=== PATIENT | male | born 1960 | race Caucasian/White ===

== ENCOUNTER 2017-04-04 14:27 | Emergency (ER) | payer BC, OTHER ==
[~2017-04-04] VITALS: Ht 182.9 cm; Wt 87.0 kg
[2017-04-04 14:41] VITALS: TEMP 36.6; Ht 182.9 cm; Wt 87.0 kg
[2017-04-04] MEDS ORDERED: MULT-506 PO (14:50)
[2017-04-04] MEDS ORDERED: IBUP-1050 PO (14:50)
[2017-04-04] MEDS ORDERED: IBUPROFEN 600 MG TAB PO STA (14:58)
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
[2017-04-04] MEDS ORDERED: OXYCODONE HCL IR 5 MG TAB (IMMEDIATE RELEASE) PO STA (15:56)
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
[2017-04-04 16:09] VITALS: BP 133/89; PULSE 63; O2SAT 95
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
[2017-04-04] MEDS ORDERED: DIPHTHERIA/TETANUS/PERTUSSIS 0.5 ML SYR/VIAL IM. ONE (16:45)
[2017-04-04] MEDS ORDERED: OXYC1TAB3 PO (16:47)
== END 2017-04-04 17:01 | disposition home or self-care (01) ==
LOC: C.EDB 14:28 → C.EDD 17:01
DX: S43.102A Unspecified dislocation of left acromioclavicular joint, initial encounter (principal); M79.605 Pain in left leg; V18.0XXA Pedal cycle driver injured in noncollision transport accident in nontraffic accident, initial encounter; Z23 Encounter for immunization

== ENCOUNTER 2020-11-01 19:40 | Inpatient (IN) ==
--- NOTE | 2020-11-01 19:53 | Emergency Department Note ---
Impression & Plan Neutropenic fever, Sepsis, Pancytopenia ED Provider Note NAME: RAFFY SCHUSTER AGE: 60 SEX: M : 1960 ARRIVES VIA: Walk-In INFORMANT: patient, ED PROVIDER(S): Mario Chu MD Chief Complaint: Fever HPI: Patient does present with concern for low-grade fever. The patient does have a known diagnosis of lymphoma and does receive chemotherapy at the [facility]. Patient did have a recent change in medications and has been on IV chemotherapy since August. The patient is on chronic a ntibiotics as well. Patient did have a CBC completed recently which showed a low hemoglobin of 6.8 and is scheduled for transfusion tomorrow. The patient states that he has had some nausea since he last got his chemotherapy last Thursday at [facility]. The nausea began Thursday and became more persistent and strong with some associated vomiting. The patient is had decreased appetite. The patient did noticed a low-grade fever today. The patient states that he did have some sort of unresponsive and seizure-like episode on Thursday [facility] was not noted to have anything of great concern based on a CT head and MRI of the brain per the patient. Patient denies any chest pains or shortness of breath. He does have nausea but no abdominal pain. Patient is had a recent bowel movement no dysuria or hematuria. The patient has had some postnasal drip type symptoms. Patient states he has been taking his medications with exception of maybe some evening meds. Patient also related he has a small sore near the perineum as well as on the buttock. He has been following with this and treating it with antibiotic ointment. ROS: See HPI for pertinent positives and negatives. A total of 10 systems were reviewed and otherwise negative. Past medical history: See below Surgical history: See below Social history: See below Physical Exam: GENERAL: Tired, fatigued, and pale in appearance. Wearing a mask, glasses at a hat. EYE EXAM: Normal conjunctiva. PERRL, no anisocoria and EOM's grossly intact w/o pain. NECK: Supple, no nuchal rigidity, no adenopathy, non-tender. No signs of meningismus. LUNGS: Clear to auscultation. Normal chest wall mechanics. HEART: NSR, no MRG. ABDOMEN: Abdomen soft, non-tender, normo-active bowel sounds, no masses, no rebound or guarding. BACK: No CVA TTP. SKIN: No rashes and no bruising. Stage II skin breakdown over the perineum as well as the sacrum without any surrounding erythema fluctuance drainage or swelling. No evidence of Pam's or deep tissue infection. UPPER EXTREMITIES: Upper extremities are grossly normal. LOWER EXTREMITIES: Grossly normal, no edema. Negative Homans' sign bilaterally. NEURO EXAM: A&O x3, cranial nerves II-XII grossly intact, normal speech, moves all 4 extremities on command w/o issue. Differential diagnoses: Sepsis, UTI, pneumonia, metabolic, electrolyte abnor malities, cardiac sources, intracerebral event, toxicologic, neurologic, as well as other pathologies. Course: Patient was seen and evaluated the bedside. Full history physical exam was performed. EKG: Indication: Fever Normal sinus rhythm, rate of 77, normal intervals, normal axis. Imaging Studies: Radiology results as stated below per my review in the radiologist's interpretation: XR chest 1V portable CLINICAL HISTORY: Sepsis. COMPARISON STUDY: Chest radiograph August 07, 2020. FINDINGS: Lung volumes are normal. Lungs are clear. There is no pneumothorax or pleural effusion. Mild cardiomegaly is unchanged. Mediastinal contours are normal. There is no evidence for pulmonary edema. Right sided [id number] is in place. IMPRESSION: No acute cardiopulmonary findings. ACT 112: Negative or not required by law. Electronically signed by: Juan Alberto Alfaro M.D. 11/01/2020 8:55 PM Dictated: 11/01/202053 Transcribed: 11/01/202053 CT head: Evidence of right frontal craniotomy. Encephalomalacia of the underlying anterior right frontal lobe. No definite acute ICH. 3 x 1.4 midline hyperdense extra-axial mass anterior to the frontal lobes. Additional 0.9 x 1.7 hyperdense extra-axial mass along the anterior anterior hemispheric fissure near the vertex. These may be meningiomas. Mild periventricular white matter chronic microvascular ischemic changes. No acute calvarial fracture. Orbits, sinuses, and mastoids are unremarkable Cardiac monitoring: An order was placed for continuous cardiac monitoring. The monitor shows a rate of 93 with sinus rhythm. MDM: Patient does present with concern for increasing weakness nausea recent chemotherapy and low-grade temperature. Patient did have blood work completed along with IV cefepime given the concern for his ongoing chemotherapy with a MRSA swab. Flu and Covid obtained as well. The patient was ordered IV fluids antiemetics. The patient's flu and Covid negative. The patient did have significant neutropenia and anemia and thrombocytopenia. I did speak to the on-call research tech oncologist with Dr. Johan Jimenez. He did recommend any platelet transfusion. The patient was consented and blood and platelets ordered. The patient did have improvement in his blood pressure. The patient does have some mild prerenal azotemia. Troponin is not detectable. No spontaneous bleeding and no confusion at this time. Urinalysis negative. MRSA screen negative. Did speak the on-call hospitalist Dr. Islas the patient was admitted to medicine service. I did update the with the patient's permission. CT of the head does not show any acute ICH. Critical Care: I have personally spent 85 minutes of critical care time in direct management of this patient. This includes bedside care, interpretation of diagnostic studies, and testing, discussion with consultants, patient, and family members, and other require inpatient management activities. This 85 minutes is [facility] excess [facility]. Past Med/Surg History Medical History (Updated 11/01/20 @ 23:59 by Mario Chu MD) Brain cancer Leukemia Social History Smoking Status: Never smoker Tobacco Type: Cigarettes Feels Safe at Home: Yes Allergies Allergies Allergy/AdvReac Type Severity Reaction Status Date / Time No Known Allergies Allergy Verified 11/01/20 21:25 Home Meds Home Medications Medication Instructions Recorded Confirmed acyclovir 800 mg PO BID 11/01/20 11/01/20 atorvastatin 20 mg PO QPM 11/01/20 11/01/20 baclofen 10 mg PO DIRECTED PRN 11/01/20 11/01/20 cyclobenzaprine 5 mg PO DIRECTED PRN 11/01/20 11/01/20 dextromethorphan-guaifenesin 2 tab PO Q12H 11/01/20 11/01/20 [Mucinex DM] diphenhydramine HCl 25 mg PO HS 11/01/20 11/01/20 filgrastim-sndz [Zarxio] 480 mcg SUBCUT DAILY@1900 11/01/20 11/01/20 fluconazole 400 mg PO QAM 11/01/20 11/01/20 folic acid 1 mg PO QAM 11/01/20 11/01/20 levetiracetam 500 mg PO BID 11/01/20 11/01/20 levofloxacin 500 mg PO QAM 11/01/20 11/01/20 lidocaine HCl [Lidocaine Viscous] See Rx Instructions .ROUTE .COMPLEX 11/01/20 11/01/20 loratadine [Claritin] 10 mg PO DIRECTED 11/01/20 11/01/20 lorazepam 0.5 mg PO Q4H PRN 11/01/20 11/01/20 melatonin 10 mg PO HS 11/01/20 11/01/20 ondansetron 4 mg PO DIRECTED PRN 11/01/20 11/01/20 oxycodone 5 mg PO Q6H PRN 11/01/20 11/01/20 polyethylene glycol 3350 17 g PO DAILY PRN 11/01/20 11/01/20 prochlorperazine maleate 10 mg PO DIRECTED PRN 11/01/20 11/01/20 pyridoxine (vitamin B6) [Vitamin 100 mg PO QAM 11/01/20 11/01/20 B-6] sennosides [senna] 8.6 mg PO DIRECTED PRN 11/01/20 11/01/20 sulfamethoxazole-trimethoprim 1 tab PO 3XWK 11/01/20 11/01/20 Results & Data (ED) Vital Signs Vital Signs - 24 hr 11/01/20 19:42 11/01/20 21:29 11/01/20 21:30 Temperature 37.7 C H Temperature Source Oral Pulse Rate 93 H 76 75 Pulse Rate [Finger] Pulse Rate from SpO2 Sensor 75 Respiratory Rate 20 21 20 Respiratory Effort / Characteristics Non-Labored Spontaneous Respiratory Depth Normal Respiratory Pattern Regular Blood Pressure 95/65 L 99/59 L 114/61 Blood Pressure [Right Radial Artery] Blood Pressure Mean 75 72 78 Blood Pressure Mean [Right Radial Artery] Pulse Oximetry 99 98 98 Oxygen Delivery Method Room Air Room Air Room Air Sepsis Recent Fever Within 48 Hours No Sepsis New/Unexplained Change in Mental Status N/A Sepsis Action Taken by Nursing No Action Required 11/01/20 22:00 11/01/20 22:01 11/01/20 22:30 Temperature Temperature Source Pulse Rate 75 72 77 Pulse Rate [Finger] Pulse Rate from SpO2 Sensor 75 72 78 Respiratory Rate 18 18 19 Respiratory Effort / Characteristics Respiratory Depth Respiratory Pattern Blood Pressure 107/69 122/67 Blood Pressure [Right Radial Artery] Blood Pressure Mean 81 85 Blood Pressure Mean [Right Radial Artery] Pulse Oximetry 98 98 99 Oxygen Delivery Method Sepsis Recent Fever Within 48 Hours Sepsis New/Unexplained Change in Mental Status Sepsis Action Taken by Nursing 11/01/20 22:31 11/01/20 23:38 11/01/20 23:55 Temperature Temperature Source Pulse Rate 80 Pulse Rate [Finger] 74 Pulse Rate from SpO2 Sensor 79 Respiratory Rate 19 Respiratory Effort / Characteristics Respiratory Depth Respiratory Pattern Blood Pressure Blood Pressure [Right Radial Artery] 109/60 Blood Pressure Mean Blood Pressure Mean [Right Radial Artery] 76 Pulse Oximetry 99 99 99 Oxygen Delivery Method Room Air Room Air Sepsis Recent Fever Within 48 Hours Sepsis New/Unexplained Change in Mental Status Sepsis Action Taken by Nursing 11/02/20 00:00 Temperature Temperature Source Pulse Rate Pulse Rate [Finger] Pulse Rate from SpO2 Sensor Respiratory Rate Respiratory Effort / Characteristics Respiratory Depth Respiratory Pattern Blood Pressure Blood Pressure [Right Radial Artery] Blood Pressure Mean Blood Pressure Mean [Right Radial Artery] Pulse Oximetry 98 Oxygen Delivery Method Room Air Sepsis Recent Fever Within 48 Hours Sepsis New/Unexplained Change in Mental Status Sepsis Action Taken by Assisted Medications Current Medication List: was personally reviewed by me Laboratory Data Attestation: I reviewed the patient's lab results. Result diagrams: 11/01/20 20:50 11/01/20 20:50 Lab Results 11/01/20 11/01/20 11/01/20 Range/Units 20:00 20:50 20:50 WBC (4.8-10.8) K/uL RBC (4.7-6.1) M/uL Hgb (14.0-18.0) g/dL Hct (42-52) % MCV (80-100) fL MCH (25-34) pg MCHC (32-36) g/dL RDW Std Deviation (36.4-46.3) fL RDW Coeff of Jai (11.5-14.5) % Plt Count (130-400) K/uL MPV (7.4-10.4) fL Immature Gran % (Auto) Neut % (Auto) Lymph % (Auto) [place] % (Auto) Eos % (Auto) Baso % (Auto) Neut # (Auto) Lymph # (Auto) [place] # (Auto) Eos # (Auto) Baso # (Auto) Immature Gran # (Auto) Neutrophils % (Manual) Band Neutrophils % Lymphocytes % (Manual) Prolymphocyte % Reactive Lymphs % (Man) Monocytes % (Manual) Eosinophils % (Manual) Basophils % (Manual) Metamyelocytes % (Man) Myelocytes % (Man) Promyelocytes % (Man) Blast Cells % (Manual) Plasma Cell % (Manual) Other Cells % Nucleated RBC % Neutrophils # (Manual) Band Neutrophils # Total Absolute Neuts Lymphocytes # (Manual) Prolymphocyte # Reactive Lymphs # Total Abs Lymphocytes Monocytes # (Manual) Eosinophils # (Manual) Basophils # (Manual) Metamyelocytes # (Man) Myelocytes # (Manual) Promyelocytes # (Man) Blast Cells # (Man) Plasma Cell # (Manual) Other Cells # Nucleated RBCs # (Man) Hypersegmented Neuts Hyposegmented Neuts Hypogranular Neuts Large Granular Lymphs # Lrg Granular Lymphs Hairy Cells Smudge Cells Toxic Granulation Toxic Vacuolation Dohle Bodies Miranda Rods Platelet Estimate (Normal) Hypogranular Platelets Clumped Platelets Giant Platelets Platelet Satelliting RBC Morphology Polychromasia Hypochromasia Poikilocytosis Basophilic Stippling Anisocytosis Microcytosis Macrocytosis Spherocytes Pappenheimer Bodies Sickle Cells Target Cells Tear Drop Cells Ovalocytes Stomatocytes Neves-Pomeroy Bodies Echinocytes Acanthocytes (Spur) Rouleaux RBC Agglutinates Schistocytes RBC Morph Comment Sezary Cell PT (9.0-12.0) Seconds INR (0.9-1.1) APTT (21.0-31.0) Seconds PTT Ratio Sodium 133 L (136-145) mmol/L Potassium 4.1 (3.5-5.1) mmol/L Chloride 102 (98-107) mmol/L Carbon Dioxide 25 (21-32) mmol/L Anion Gap 6.0 (3-11) BUN 23 H (7-18) mg/dl Creatinine 0.99 (0.6-1.4) mg/dl Est Cr Clr Drug Dosing 89.3 ml/min Est GFR ( Amer) 96.9 Est GFR (Non-Af Amer) 83.6 BUN/Creatinine Ratio 23.1 H (10-20) Glucose 120 H (70-99) mg/dl Lactate 1.3 (0.4-2.0) mmol/L Calcium 8.9 (8.5-10.1) mg/dl Magnesium 1.9 (1.8-2.4) mg/dl Total Bilirubin 1.0 (0.2-1) mg/dl AST 6 L (15-37) U/L ALT 27 (12-78) U/L Alkaline Phosphatase 91 (45-117) U/L Troponin I < 0.015 (0-0.045) ng/ml Total Protein 6.3 L (6.4-8.2) gm/dl Albumin 3.3 L (3.4-5.0) gm/dl Globulin 3.0 (2.5-4.0) gm/dl Albumin/Globulin Ratio 1.1 (0.9-2) Procalcitonin 0.10 (0-0.5) ng/ml Urine Color Urine Appearance (Clear) Urine pH (4.5-7.5) Ur Specific Slaughter (1.000-1.030) Urine Protein (Negative) Urine Glucose (UA) (Negative) Urine Ketones (Negative) Urine Blood (Negative) Urine Nitrite (Negative) Urine Bilirubin (Negative) Urine Urobilinogen (Negative) Ur Leukocyte Esterase (Negative) Nasal Screen MRSA (PCR) (Negative) COVID-19 Eval Order SARS-CoV-2 (PCR) (Negative) Influenza Type A (PCR) (Neg) Influenza Type B (PCR) (Neg) RSV (RT-PCR) (Neg) Blood Type Antibody Screen Crossmatch 11/01/20 11/01/20 11/01/20 Range/Units 20:50 20:50 21:34 WBC 0.04 L* (4.8-10.8) K/uL RBC 1.90 L (4.7-6.1) M/uL Hgb 5.9 L* (14.0-18.0) g/dL Hct 16.3 L* (42-52) % MCV 85.8 (80-100) fL MCH 31.1 (25-34) pg MCHC 36.2 H (32-36) g/dL RDW Std Deviation 41.3 (36.4-46.3) fL RDW Coeff of Jai 13.3 (11.5-14.5) % Plt Count 16 L* (130-400) K/uL MPV 11.1 H (7.4-10.4) fL Immature Gran % (Auto) Cancelled Neut % (Auto) Cancelled Lymph % (Auto) Cancelled [place] % (Auto) Cancelled Eos % (Auto) Cancelled Baso % (Auto) Cancelled Neut # (Auto) Cancelled Lymph # (Auto) Cancelled [place] # (Auto) Cancelled Eos # (Auto) Cancelled Baso # (Auto) Cancelled Immature Gran # (Auto) Cancelled Neutrophils % (Manual) Cancelled Band Neutrophils % Cancelled Lymphocytes % (Manual) Cancelled Prolymphocyte % Cancelled Reactive Lymphs % (Man) Cancelled Monocytes % (Manual) Cancelled Eosinophils % (Manual) Cancelled Basophils % (Manual) Cancelled Metamyelocytes % (Man) Cancelled Myelocytes % (Man) Cancelled Promyelocytes % (Man) Cancelled Blast Cells % (Manual) Cancelled Plasma Cell % (Manual) Cancelled Other Cells % Cancelled Nucleated RBC % Cancelled Neutrophils # (Manual) Cancelled Band Neutrophils # Cancelled Total Absolute Neuts Cancelled Lymphocytes # (Manual) Cancelled Prolymphocyte # Cancelled Reactive Lymphs # Cancelled Total Abs Lymphocytes Cancelled Monocytes # (Manual) Cancelled Eosinophils # (Manual) Cancelled Basophils # (Manual) Cancelled Metamyelocytes # (Man) Cancelled Myelocytes # (Manual) Cancelled Promyelocytes # (Man) Cancelled Blast Cells # (Man) Cancelled Plasma Cell # (Manual) Cancelled Other Cells # Cancelled Nucleated RBCs # (Man) Cancelled Hypersegmented Neuts Cancelled Hyposegmented Neuts Cancelled Hypogranular Neuts Cancelled Large Granular Lymphs Cancelled # Lrg Granular Lymphs Cancelled Hairy Cells Cancelled Smudge Cells Cancelled Toxic Granulation Cancelled Toxic Vacuolation Cancelled Dohle Bodies Cancelled Miranda Rods Cancelled Platelet Estimate SIGNIFIC DECREASED (Normal) Hypogranular Platelets Cancelled Clumped Platelets Cancelled Giant Platelets Cancelled Platelet Satelliting Cancelled RBC Morphology Cancelled Polychromasia Cancelled Hypochromasia Cancelled Poikilocytosis Cancelled Basophilic Stippling Cancelled Anisocytosis Cancelled Microcytosis Cancelled Macrocytosis Cancelled Spherocytes Cancelled Pappenheimer Bodies Cancelled Sickle Cells Cancelled Target Cells Cancelled Tear Drop Cells Cancelled Ovalocytes Cancelled Stomatocytes Cancelled Neves-Pomeroy Bodies Cancelled Echinocytes Cancelled Acanthocytes (Spur) Cancelled Rouleaux Cancelled RBC Agglutinates Cancelled Schistocytes Cancelled RBC Morph Comment Cancelled Sezary Cell Cancelled PT 10.9 (9.0-12.0) Seconds INR 1.1 (0.9-1.1) APTT 34.6 H (21.0-31.0) Seconds PTT Ratio 1.3 Sodium (136-145) mmol/L Potassium (3.5-5.1) mmol/L Chloride (98-107) mmol/L Carbon Dioxide (21-32) mmol/L Anion Gap (3-11) BUN (7-18) mg/dl Creatinine (0.6-1.4) mg/dl Est Cr Clr Drug Dosing ml/min Est GFR ( Amer) Est GFR (Non-Af Amer) BUN/Creatinine Ratio (10-20) Glucose (70-99) mg/dl Lactate (0.4-2.0) mmol/L Calcium (8.5-10.1) mg/dl Magnesium (1.8-2.4) mg/dl Total Bilirubin (0.2-1) mg/dl AST (15-37) U/L ALT (12-78) U/L Alkaline Phosphatase (45-117) U/L Troponin I (0-0.045) ng/ml Total Protein (6.4-8.2) gm/dl Albumin (3.4-5.0) gm/dl Globulin (2.5-4.0) gm/dl Albumin/Globulin Ratio (0.9-2) Procalcitonin (0-0.5) ng/ml Urine Color Urine Appearance (Clear) Urine pH (4.5-7.5) Ur Specific Slaughter (1.000-1.030) Urine Protein (Negative) Urine Glucose (UA) (Negative) Urine Ketones (Negative) Urine Blood (Negative) Urine Nitrite (Negative) Urine Bilirubin (Negative) Urine Urobilinogen (Negative) Ur Leukocyte Esterase (Negative) Nasal Screen MRSA (PCR) (Negative) COVID-19 Eval Order CovFluRsv at [facility] SARS-CoV-2 (PCR) (Negative) Influenza Type A (PCR) (Neg) Influenza Type B (PCR) (Neg) RSV (RT-PCR) (Neg) Blood Type Antibody Screen Crossmatch 11/01/20 11/01/20 11/01/20 Range/Units 21:34 21:34 22:48 WBC (4.8-10.8) K/uL RBC (4.7-6.1) M/uL Hgb (14.0-18.0) g/dL Hct (42-52) % MCV (80-100) fL MCH (25-34) pg MCHC (32-36) g/dL RDW Std Deviation (36.4-46.3) fL RDW Coeff of Jai (11.5-14.5) % Plt Count (130-400) K/uL MPV (7.4-10.4) fL Immature Gran % (Auto) Neut % (Auto) Lymph % (Auto) [place] % (Auto) Eos % (Auto) Baso % (Auto) Neut # (Auto) Lymph # (Auto) [place] # (Auto) Eos # (Auto) Baso # (Auto) Immature Gran # (Auto) Neutrophils % (Manual) Band Neutrophils % Lymphocytes % (Manual) Prolymphocyte % Reactive Lymphs % (Man) Monocytes % (Manual) Eosinophils % (Manual) Basophils % (Manual) Metamyelocytes % (Man) Myelocytes % (Man) Promyelocytes % (Man) Blast Cells % (Manual) Plasma Cell % (Manual) Other Cells % Nucleated RBC % Neutrophils # (Manual) Band Neutrophils # Total Absolute Neuts Lymphocytes # (Manual) Prolymphocyte # Reactive Lymphs # Total Abs Lymphocytes Monocytes # (Manual) Eosinophils # (Manual) Basophils # (Manual) Metamyelocytes # (Man) Myelocytes # (Manual) Promyelocytes # (Man) Blast Cells # (Man) Plasma Cell # (Manual) Other Cells # Nucleated RBCs # (Man) Hypersegmented Neuts Hyposegmented Neuts Hypogranular Neuts Large Granular Lymphs # Lrg Granular Lymphs Hairy Cells Smudge Cells Toxic Granulation Toxic Vacuolation Dohle Bodies Miranda Rods Platelet Estimate (Normal) Hypogranular Platelets Clumped Platelets Giant Platelets Platelet Satelliting RBC Morphology Polychromasia Hypochromasia Poikilocytosis Basophilic Stippling Anisocytosis Microcytosis Macrocytosis Spherocytes Pappenheimer Bodies Sickle Cells Target Cells Tear Drop Cells Ovalocytes Stomatocytes Neves-Pomeroy Bodies Echinocytes Acanthocytes (Spur) Rouleaux RBC Agglutinates Schistocytes RBC Morph Comment Sezary Cell PT (9.0-12.0) Seconds INR (0.9-1.1) APTT (21.0-31.0) Seconds PTT Ratio Sodium (136-145) mmol/L Potassium (3.5-5.1) mmol/L Chloride (98-107) mmol/L Carbon Dioxide (21-32) mmol/L Anion Gap (3-11) BUN (7-18) mg/dl Creatinine (0.6-1.4) mg/dl Est Cr Clr Drug Dosing ml/min Est GFR ( Amer) Est GFR (Non-Af Amer) BUN/Creatinine Ratio (10-20) Glucose (70-99) mg/dl Lactate (0.4-2.0) mmol/L Calcium (8.5-10.1) mg/dl Magnesium (1.8-2.4) mg/dl Total Bilirubin (0.2-1) mg/dl AST (15-37) U/L ALT (12-78) U/L Alkaline Phosphatase (45-117) U/L Troponin I (0-0.045) ng/ml Total Protein (6.4-8.2) gm/dl Albumin (3.4-5.0) gm/dl Globulin (2.5-4.0) gm/dl Albumin/Globulin Ratio (0.9-2) Procalcitonin (0-0.5) ng/ml Urine Color Urine Appearance (Clear) Urine pH (4.5-7.5) Ur Specific [place]aughter (1.000-1.030) Urine Protein (Negative) Urine Glucose (UA) (Negative) Urine Ketones (Negative) Urine Blood (Negative) Urine Nitrite (Negative) Urine Bilirubin (Negative) Urine Urobilinogen (Negative) Ur Leukocyte Esterase (Negative) Nasal Screen MRSA (PCR) Negative (Negative) COVID-19 Eval Order SARS-CoV-2 (PCR) NEGATIVE (Negative) Influenza Type A (PCR) Negative (Neg) Influenza Type B (PCR) Negative (Neg) RSV (RT-PCR) Negative (Neg) Blood Type A Positive Antibody Screen NEGATIVE Crossmatch See Detail 11/01/20 Range/Units 23:00 WBC (4.8-10.8) K/uL RBC (4.7-6.1) M/uL Hgb (14.0-18.0) g/dL Hct (42-52) % MCV (80-100) fL MCH (25-34) pg MCHC (32-36) g/dL RDW Std Deviation (36.4-46.3) fL RDW Coeff of Jai (11.5-14.5) % Plt Count (130-400) K/uL MPV (7.4-10.4) fL Immature Gran % (Auto) Neut % (Auto) Lymph % (Auto) [place] % (Auto) Eos % (Auto) Baso % (Auto) Neut # (Auto) Lymph # (Auto) [place] # (Auto) Eos # (Auto) Baso # (Auto) Immature Gran # (Auto) Neutrophils % (Manual) Band Neutrophils % Lymphocytes % (Manual) Prolymphocyte % Reactive Lymphs % (Man) Monocytes % (Manual) Eosinophils % (Manual) Basophils % (Manual) Metamyelocytes % (Man) Myelocytes % (Man) Promyelocytes % (Man) Blast Cells % (Manual) Plasma Cell % (Manual) Other Cells % Nucleated RBC % Neutrophils # (Manual) Band Neutrophils # Total Absolute Neuts Lymphocytes # (Manual) Prolymphocyte # Reactive Lymphs # Total Abs Lymphocytes Monocytes # (Manual) Eosinophils # (Manual) Basophils # (Manual) Metamyelocytes # (Man) Myelocytes # (Manual) Promyelocytes # (Man) Blast Cells # (Man) Plasma Cell # (Manual) Other Cells # Nucleated RBCs # (Man) Hypersegmented Neuts Hyposegmented Neuts Hypogranular Neuts Large Granular Lymphs # Lrg Granular Lymphs Hairy Cells Smudge Cells Toxic Granulation Toxic Vacuolation Dohle Bodies Miranda Rods Platelet Estimate (Normal) Hypogranular Platelets Clumped Platelets Giant Platelets Platelet Satelliting RBC Morphology Polychromasia Hypochromasia Poikilocytosis Basophilic Stippling Anisocytosis Microcytosis Macrocytosis Spherocytes Pappenheimer Bodies Sickle Cells Target Cells Tear Drop Cells Ovalocytes Stomatocytes Neves-Pomeroy Bodies Echinocytes Acanthocytes (Spur) Rouleaux RBC Agglutinates Schistocytes RBC Morph Comment Sezary Cell PT (9.0-12.0) Seconds INR (0.9-1.1) APTT (21.0-31.0) Seconds PTT Ratio Sodium (136-145) mmol/L Potassium (3.5-5.1) mmol/L Chloride (98-107) mmol/L Carbon Dioxide (21-32) mmol/L Anion Gap (3-11) BUN (7-18) mg/dl Creatinine (0.6-1.4) mg/dl Est Cr Clr Drug Dosing ml/min Est GFR ( Amer) Est GFR (Non-Af Amer) BUN/Creatinine Ratio (10-20) Glucose (70-99) mg/dl Lactate (0.4-2.0) mmol/L Calcium (8.5-10.1) mg/dl Magnesium (1.8-2.4) mg/dl Total Bilirubin (0.2-1) mg/dl AST (15-37) U/L ALT (12-78) U/L Alkaline Phosphatase (45-117) U/L Troponin I (0-0.045) ng/ml Total Protein (6.4-8.2) gm/dl Albumin (3.4-5.0) gm/dl Globulin (2.5-4.0) gm/dl Albumin/Globulin Ratio (0.9-2) Procalcitonin (0-0.5) ng/ml Urine Color Yellow Urine Appearance Clear (Clear) Urine pH 5.5 (4.5-7.5) Ur Specific [place] 1.020 (1.000-1.030) Urine Protein Negative (Negative) Urine Glucose (UA) Negative (Negative) Urine Ketones Negative (Negative) Urine Blood Negative (Negative) Urine Nitrite Negative (Negative) Urine Bilirubin Negative (Negative) Urine Urobilinogen Negative (Negative) Ur Leukocyte Esterase Negative (Negative) Nasal Screen MRSA (PCR) (Negative) COVID-19 Eval Order SARS-CoV-2 (PCR) (Negative) Influenza Type A (PCR) (Neg) Influenza Type B (PCR) (Neg) RSV (RT-PCR) (Neg) Blood Type Antibody Screen Crossmatch Administered Medications Discontinued Medications Acetaminophen (Acetaminophen 325 Mg Tab) 650 mg PO NOW STA Stop: 11/01/20 21:56 Last Admin: 11/01/20 23:21 Dose: 650 mg Documented by: [id number] Sodium Chloride (Nss 1000ml) 1,000 mls @ 999 mls/hr IV .Q1H1M NARESH Stop: 11/01/20 21:10 Last Infusion: 11/01/20 22:28 Dose: 0 mls/hr Documented by: [id number] Admin: 11/01/20 21:25 Dose: 999 mls/hr Documented by: [id number] Sodium Chloride (Nss 1000ml) 1,000 mls @ 999 mls/hr IV .Q1H1M NARESH Stop: 11/01/20 22:10 Last Infusion: 11/01/20 22:28 Dose: 0 mls/hr Documented by: [id number] Admin: 11/01/20 20:57 Dose: 999 mls/hr Documented by: [id number] Cefepime HCl (Maxipime) 2,000 mg in 20 mls @ 5 mls/min IV NOW STA; Protocol Stop: 11/01/20 20:15 Last Admin: 11/01/20 21:25 Dose: 5 mls/min Documented by: [id number] Ondansetron HCl (Ondansetron Inj 2 Mg/Ml 2 Ml Vial) Confirm Administered Dose 4 mg .ROUTE .STK-MED ONE Stop: 11/01/20 21:54 Last Admin: 11/01/20 21:59 Dose: Not Given Documented by: [id number] Ondansetron HCl (Ondansetron Inj 2 Mg/Ml 2 Ml Vial) 4 mg IV NOW STA Stop: 11/01/20 21:56 Last Admin: 11/01/20 21:59 Dose: 4 mg Documented by: [id number] Discharge Plan Visit Data Chief Complaint: Fever Stated Complaint: fever, nausea, cbc low ED Provider: Mario Chu Discharge Problem: Neutropenic fever, Sepsis, Pancytopenia Forms Stand Alone Forms: [facility] Prescriptions Prescriptions: No Action atorvastatin 20 mg tablet 20 mg PO QPM RF: 0 sulfamethoxazole-trimethoprim 400-80 mg tablet 1 tab PO 3XWK RF: 0 levetiracetam 500 mg tablet 500 mg PO BID RF: 0 fluconazole 200 mg tablet 400 mg PO QAM RF: 0 acyclovir 800 mg tablet 800 mg PO BID RF: 0 lorazepam 0.5 mg tablet 0.5 mg PO Q4H PRN (Reason: Nausea) RF: 0 baclofen 10 mg tablet 10 mg PO DIRECTED PRN (Reason: Hiccups) RF: 0 diphenhydramine HCl 25 mg Tablet 25 mg PO HS RF: 0 Lidocaine Viscous 2 % solution See Rx Instructions .ROUTE .COMPLEX RF: 0 folic acid 1 mg tablet 1 mg PO QAM RF: 0 pyridoxine (vitamin B6) [Vitamin B-6] 100 mg Tablet 100 mg PO QAM RF: 0 levofloxacin 500 mg tablet 500 mg PO QAM RF: 0 ondansetron 4 mg tablet,disintegrating 4 mg PO DIRECTED PRN (Reason: Nausea) RF: 0 oxycodone 5 mg tablet 5 mg PO Q6H PRN (Reason: PAIN-MODERATE/SEVERE) RF: 0 cyclobenzaprine 5 mg tablet 5 mg PO DIRECTED PRN (Reason: Muscle Spasm) RF: 0 sennosides [senna] 8.6 mg Tablet 8.6 mg PO DIRECTED PRN (Reason: Constipation) RF: 0 prochlorperazine maleate 10 mg Tablet 10 mg PO DIRECTED PRN (Reason: Nausea) RF: 0 polyethylene glycol 3350 17 gram/dose Powder 17 g PO DAILY PRN (Reason: Constipation) RF: 0 Mucinex DM 30-600 mg Tablet Extended Release 12 Hr 2 tab PO Q12H RF: 0 loratadine [Claritin] 10 mg Tablet 10 mg PO DIRECTED RF: 0 melatonin 10 mg Tablet 10 mg PO HS RF: 0 Zarxio 480 mcg/0.8 mL Syringe 480 mcg SUBCUT DAILY@1900 RF: 0 Discharge Problem: Sepsis Qualifiers: Sepsis type: sepsis due to unspecified organism Sepsis acute organ dysfunction status: without acute organ dysfunction Qualified Code(s): A41.9 - Sepsis, unspecified organism
[2020-11-01] MEDS ORDERED: CEFEPIME 2,000 MG/20 ML VIAL IV STA (20:12)
[2020-11-01] MEDS ORDERED: SODIUM CHLORIDE 0.9% 1000ML 1,000 ML IV SCH ×2 (20:15→21:10)
--- NOTE | 2020-11-01 20:56 | XRay Report ---
XR chest 1V portable CLINICAL HISTORY: Sepsis. COMPARISON STUDY: Chest radiograph August 07, 2020. FINDINGS: Lung volumes are normal. Lungs are clear. There is no pneumothorax or pleural effusion. Mil d cardiomegaly is unchanged. Mediastinal contours are normal. There is no evidence for pulmonary deandre a. Right sided [id number] is in place. IMPRESSION: No acute cardiopulmonary findings. ACT 112: Negative or not required by law. Electronically signed by: Juan Alberto Alfaro M.D. 11/01/2020 8:55 PM
[2020-11-01 21:32] LABS: INR 1.1 (0.9-1.1); Partial Thromboplastin Ratio 1.3; Partial Thromboplastin Time 34.6 Seconds (21.0-31.0); Prothrombin Time 10.9 Seconds (9.0-12.0)
[2020-11-01 21:36] LABS: Alanine Aminotransferase 27 U/L (12-78); Albumin Level 3.3 gm/dl (3.4-5.0); Aspartate Aminotransferase 6 U/L (15-37); BUN Creatinine Ratio 23.1 (10-20); Blood Urea Nitrogen 23 mg/dl (7-18); Calcium 8.9 mg/dl (8.5-10.1); Carbon Dioxide 25 mmol/L (21-32); Chloride 102 mmol/L (98-107); Creatinine Clr Calc Pharmacy 89.3 ml/min; Est GFR (African American) 96.9; Est GFR (Non-African American) 83.6; Glucose 120 mg/dl (70-99); Magnesium 1.9 mg/dl (1.8-2.4); Potassium 4.1 mmol/L (3.5-5.1); Sodium 133 mmol/L (136-145)
[2020-11-01 21:41] LABS: Albumin Globulin Ratio 1.1 (0.9-2); Alkaline Phosphatase 91 U/L (45-117); Total Protein 6.3 gm/dl (6.4-8.2); Troponin I < 0.015 ng/ml (0-0.045)
[2020-11-01] MEDS ORDERED: ONDANSETRON INJ 2 MG/ML 2 ML VIAL ONE (21:53)
[2020-11-01] MEDS ORDERED: ONDANSETRON INJ 2 MG/ML 2 ML VIAL IV STA (21:55)
[2020-11-01] MEDS ORDERED: ACETAMINOPHEN 325 MG TAB PO STA (21:55)
[2020-11-01 22:19] LABS: Hematocrit (blood only) 16.3 % (42-52); Hemoglobin 5.9 g/dL (14.0-18.0); Mean Corpuscular Hemoglobin 31.1 pg (25-34); Mean Corpuscular Hgb Conc 36.2 g/dL (32-36); Mean Corpuscular Volume 85.8 fL (80-100); Mean Platelet Volume 11.1 fL (7.4-10.4); Platelet Count 16 K/uL (130-400); RDW Coefficient of Variation 13.3 % (11.5-14.5); RDW Standard Deviation 41.3 fL (36.4-46.3); White Blood Count 0.04 K/uL (4.8-10.8)
[2020-11-01 22:20] LABS: Platelet Estimate SIGNIFIC DECREASED (Normal)
[2020-11-01 22:36] LABS: Influenza A virus by PCR Negative (Neg); Influenza B virus by PCR Negative (Neg); RSV by PCR Negative (Neg); SARS CoV2 RNA(COVID-19) InHosp NEGATIVE (Negative)
[2020-11-01] MEDS ORDERED: SODIUM CHLORIDE 0.9% 250 ML IV PRN ×2 (22:40→22:51)
[2020-11-01 23:05] LABS: Appearance Urine Clear (Clear); Bilirubin Urine Negative (Negative); Blood Urine Negative (Negative); Color Urine Yellow; Glucose Urine UA Negative (Negative); Ketones Urine Negative (Negative); Leukocyte Esterase Urine Negative (Negative); Nitrite Urine Negative (Negative); Protein Urine Negative (Negative); Urobilinogen Urine Negative (Negative); pH Urine 5.5 (4.5-7.5)
[2020-11-02] MEDS ORDERED: MoRPHine SULFATE 4 MG/ML 1 ML CARP\\VIAL IV STA (00:17)
--- NOTE | 2020-11-02 02:55 | History and Physical Report ---
DATE OF ADMISSION: 11/02/2020 CHIEF COMPLAINT: Febrile neutropenia. HISTORY OF PRESENT ILLNESS: This is a 60-year-old male with past medical history significant for stage IV diffuse large B-cell lymphoma, atherosclerosis of aorta, hyperlipidemia, history of alcoholism, and cachexia, who presents with febrile neutropenia. The patient was diagnosed with stage IV diffuse large B-cell lymphoma, germinal center B-cell subtype, currently under treatment at [facility]. Initially, he was treated on methotrexate plus DA-EPOCH-R. Since this has progression, now he is receiving combination of rituximab plus etoposide and DEIRDRE-C. As per the hematology/oncology, he initially complained of confusion and headache in July 2020. At that time, CT of the brain was done on 08/07/2020 showing frontal lobe mass. MRI confirmed the finding of right frontal mass. PET scan revealed multifocal bony involvement plus peritoneal and retroperitoneal lymph nodes with FDG-avid right apical nodule and uptake in the right frontal lobe of the brain. On 09/09/2020, he was started on alternating high dose of methotrexate with DA-EPOCH-R. Followup PET scan on 10/22/2020 showed mixed response, but overall progression in both brain and systematically and the patient currently started on salvage chemotherapy including combination of ritumaxab plus etoposide and received first cycle of chemo between 10/22/2020 and 10/27/2020 at [facility]. The patient says with chemo, he developed nausea and on way back home he developed syncope/seizure , and he went to [facility] and was started on Keppra and got discharged. Currently, he is also taking fluconazole, acyclovir, Bactrim, and Levaquin. He saw on 11/01/2020 locally hematology/oncology, Dr. Harris, to follow locally. He is supposed to get blood workup couple of times a week and he is on Neupogen. Advised to come to the ER for any fevers. The patient says he developed fevers at home today, it went up to 100.8, so he came to the hospital. He has some mucus in his throat, some dry cough. He is still nauseous. He had an episode of vomiting today. Appetite is down. No chest pain. Shortness of breath on exertion. Has some headache, no neck pain, no neck stiffness, no blurred visions, no earache. Has some runny nose he says from his mask. Has sore throat, he attributes this to ulcers from his chemo. No pain while swallowing. No dysphagia, no abdominal pain. Stools are loose, but no blood in the stools or black stools. Normal micturition. He has some macular rash in his abdomen, which he attributes to his Neupogen shots. No swelling in the legs. Ambulating without any support. Lives with his . ALLERGIES: No known drug allergies. PAST MEDICAL HISTORY: As mentioned above. 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 MEDICATIONS: Currently, the patient is on acyclovir 800 mg p.o. b.i.d., atorvastatin 20 mg p.o. p.m., baclofen 10 mg p.r.n., cyclobenzaprine 5 mg p.r.n., Mucinex DM 2 tablets p.o. b.i.d., diphenhydramine 25 mg p.o. at bedtime, Zarxio 480 mcg subcutaneous daily, fluconazole 400 mg p.o. a.m., folic acid 1 mg p.o. a.m., Keppra 500 mg p.o. b.i.d., Levaquin 500 mg p.o. a.m., lidocaine viscous as directed, Claritin 10 mg p.o. as directed, lorazepam 0.5 mg p.o. q. 4 hours p.r.n., melatonin 10 mg at bedtime, Zofran 4 mg p.o. p.r.n., oxycodone 5 mg p.o. q. 6 hours p.r.n., MiraLax 17 grams p.o. daily p.r.n., prochlorperazine 10 mg p.o. p.r.n., vitamin B6 100 mg p.o. a.m., Senokot 8.6 mg p.o. p.r.n., Bactrim 1 tablet p.o. 3 times a week. FAMILY HISTORY: Significant for father had allergies, coronary artery disease, dementia, thyroid disorder; mother had breast cancer; paternal grandmother has Alzheimer disease. SOCIAL HISTORY: . No smoking or alcohol. Stopped alcohol in August 2020. No drug use. REVIEW OF SYSTEMS: As per HPI. Rest of the review of systems is negative. PHYSICAL EXAMINATION: GENERAL: The patient is of moderate build, not in acute distress. VITAL SIGNS: Temperature T-max 37.7, pulse currently 91, respiratory rate 19, blood pressure 134/82, when he came in it was 99/59, oxygen 98% on room air. HEENT: Pupils equal, round, and reactive to light. Oral mucosa moist. NECK: No JVD, no neck masses seen. CARDIOVASCULAR: S1, S2 heard, regular rate and rhythm, no murmur, no gallop. RESPIRATORY SYSTEM: Normal AP diameter. No accessory muscle use. No wheezing, no crackles. ABDOMEN: Soft, bowel sounds present, nontender. No distention. CENTRAL NERVOUS SYSTEM: Cranial nerves II-XII are grossly intact. Nonfocal. EXTREMITIES: No edema, no erythema. SKIN: Macular rash in the abdominal region. LABORATORY DATA: WBC 0.04, hemoglobin 5.1, hematocrit 16.3, platelets 16. PT 10.9, INR 1.1, APTT 34.6. Sodium 133, potassium 4.1, chloride 102, bicarbonate 25, BUN 23, creatinine 0.9, serum glucose 120, lactate 1.3, calcium 8.9, magnesium 1.9, total bilirubin 1, AST 6, ALT 27, alkaline phosphatase 91. Troponin I less than 0.015. Procalcitonin 0.1. Urinalysis negative. MRSA screen negative. SARS-CoV-2 PCR negative. Influenza A and B PCR negative, RSV PCR negative. IMAGING DATA: Chest x-ray, no acute cardiopulmonary findings. CT of the head, frontal and parafalcine extra-axial.lesion with associated right frontal lobe encephalomalacia/vasogenic edema. Subdural hemorrhage or neoplasm. MRI in followup recommended. EKG: Normal sinus rhythm with rate of 77, no acute ST changes seen. ASSESSMENT AND PLAN: This is a 60-year-old male who presents with febrile neutropenia. 1. Febrile neutropenia: The patient has a history of stage IV large B-cell lymphoma with brain mass, currently on second line chemotherapy, on rituximab, and etoposide and DEIRDRE-C, received at [facility] from 10/22/2020 to 10/27/2020. On Neupogen shots. Has developed fever today. Hemoglobin is 5.9, platelets are 16 and WBC is 0.04. ER physician talked to the [facility] hematology/oncology injection mold technician, Dr. Prado, and advised to give platelets and PRBC to the patient, which he will be getting. Will follow the repeat labs in the a.m. Continue on Neupogen shots and empirically start on cefepime for febrile neutropenia. MRSA screen is negative. Will follow the cultures. Gentle fluids. Closely monitor in the med tele. Currently hemodynamically stable. Lactic acid is normal. 2. Pancytopenia from the chemo: PRBC and platelet transfusion. Follow the repeat labs. Continue Neupogen shots. If any concern, will consult hematology/oncology. 3. Stage IV B-cell lymphoma,Brain Mass . Getting chemo from [facility]. Follows locally with Dr. Harris for hematology/oncology.Final report of ct head noted. To discuss with heme/oco. 4. Deep venous thrombosis prophylaxis: Sequential compression devices for now. 5. Disposition: Closely monitor in the med tele. Level 1 full code. Expect to discharge home and follow with family doctor. EUGENIO
[2020-11-02] MEDS ORDERED: POLYETHYLENE (MIRALAX) 17 GM PACK PO PRN (03:41)
[2020-11-02] MEDS ORDERED: NITROGLYCERIN SL 0.4 MG/TAB TAB SL PRN (03:41)
[2020-11-02] MEDS ORDERED: SENNA 8.6 MG TAB PO PRN (03:41)
[2020-11-02] MEDS ORDERED: BACLOFEN 10 MG TAB PO PRN (03:41)
[2020-11-02] MEDS ORDERED: CYCLOBENZAPRINE HCL 5 MG TAB PO PRN (03:41)
[2020-11-02] MEDS ORDERED: LIDOCAINE HCL VISCOUS SOLN 2% 15 ML UDC MT SCH (03:41)
[2020-11-02] MEDS ORDERED: LORazepam 0.5 MG TAB PO PRN (03:41)
[2020-11-02] MEDS ORDERED: SODIUM CHLORIDE 0.9% 250 ML IV PRN (03:52)
[2020-11-02] MEDS ORDERED: CEFEPIME CONSULT ACTIVE PRN (04:24)
[2020-11-02] MEDS ORDERED: ONDANSETRON 4 MG OD TAB PO PRN (04:28)
[2020-11-02] MEDS: CEFEPIME 2,000 MG in SYRINGE 0 ML IV SCH ×3 (06:12→20:04)
[2020-11-02] MEDS ORDERED: Magic Swizzle w/Glycerin 240mL MT PRN (06:15)
--- NOTE | 2020-11-02 06:59 | CT Scan Report ---
CT head/brain wo con CLINICAL HISTORY: thrombocytopenia VOMITING, sepsis, lymphoma COMPARISON STUDY: No previous studies for comparison. TECHNIQUE: Axial CT of the brain is performed from the vertex to the skull base. IV contrast was not administered for this examination. A dose lowering technique was utilized adhering to the principles of ALARA. CT DOSE: 614.27 mGy.cm FINDINGS: There are postsurgical changes of a right frontal craniectomy. There is a right frontal encephalomala sp versus vasogenic edema. There is a right frontal slightly hyperdense extra-axial lesion which microbiology professor sses the midline. In the midline this measures 10 mm thickness. At the apex this measures 17 mm in th ickness. There is also a small parafalcine hyperdense collection. This could represent hemorrhage or neoplasm. An MRI of the brain is recommended in follow-up. There is no evidence of pathologic ventricular dilatation. There is no evidence of acute sinusitis IMPRESSION: 1. Frontal and parafalcine extra-axial lesions with associated right frontal lobe encephalomalacia/va sogenic edema. This could represent subdural hemorrhage or neoplasm. An MRI is recommended in follow- up. ACT 112: Negative or not required by law. Electronically signed by: Callum Braun M.D. 11/02/2020 6:58 AM
[2020-11-02] MEDS: guaiFENesin 600 MG TABCR PO SCH ×2 (08:08→20:06)
[2020-11-02] MEDS: ACYCLOVIR 400 MG TAB PO SCH ×2 (08:08→20:06)
[2020-11-02] MEDS: DEXTROMETHORPHAN POLYMR COMPLX 60 MG/10 ML UDP PO SCH ×2 (08:08→20:04)
[2020-11-02] MEDS: PYRIDOXINE HCL 50 MG TAB PO SCH (08:08)
[2020-11-02] MEDS: SULFA/TRIMETH 400/80MG TAB PO SCH (08:08)
[2020-11-02] MEDS: levETIRAcetam 500 MG TAB PO SCH ×2 (08:09→20:06)
[2020-11-02] MEDS: FLUCONAZOLE 100 MG TAB PO SCH (08:09)
[2020-11-02] MEDS: levoFLOXacin 500 MG TAB PO SCH (08:09)
[2020-11-02] MEDS: FOLIC ACID 1 MG TAB PO SCH (08:09)
[2020-11-02] MEDS: ONDANSETRON INJ 2 MG/ML 2 ML VIAL IV PRN (08:16)
[2020-11-02] MEDS: ACETAMINOPHEN 325 MG TAB PO PRN ×2 (08:16→16:51)
[2020-11-02] MEDS: SODIUM CHLORIDE 0.9% 1000ML 1,000 ML IV SCH ×2 (10:25→23:45)
[2020-11-02 12:26] LABS: BUN Creatinine Ratio 22.9 (10-20); Calcium 8.9 mg/dl (8.5-10.1); Creatinine Clr Calc Pharmacy 103.4 ml/min; Est GFR (African American) 109.7; Est GFR (Non-African American) 94.7; Magnesium 1.9 mg/dl (1.8-2.4); Potassium 3.9 mmol/L (3.5-5.1)
[2020-11-02 12:35] LABS: Mean Corpuscular Hgb Conc 36.2 g/dL (32-36); Mean Platelet Volume 8.3 fL (7.4-10.4); Platelet Count 20 K/uL (130-400)
[2020-11-02 12:36] LABS: Hematocrit (blood only) 19.6 % (42-52); Hemoglobin 7.1 g/dL (14.0-18.0); Mean Corpuscular Volume 82.7 fL (80-100); RDW Coefficient of Variation 13.9 % (11.5-14.5); RDW Standard Deviation 41.6 fL (36.4-46.3); Red Blood Count 2.37 M/uL (4.7-6.1); White Blood Count 0.04 K/uL (4.8-10.8)
--- NOTE | 2020-11-02 13:38 | Communication Note ---
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 He was noted to have severely pancytopenic and the ER physician did talk to the oncologist and he has been receiving blood transfusion, platelet transfusion and Neupogen for neutropenia. He has been on intravenous cefepime as well and the cultures are pending. Did not show any acute infection site on admission. Has been feeling reasonably better since admission. Will keep in touch with the oncologist.Will a full progress note from tomorrow. Discussed with the patient and the Dr Dakota Gong
[2020-11-02] MEDS ORDERED: PANTOprazole 40 MG TAB PO SCH (15:00)
[2020-11-02] MEDS: PROCHLORPERAZINE MALEATE 10 MG TAB PO PRN (16:00)
[2020-11-02] MEDS: oxyCODONE HCL IR 5 MG TAB (IMMEDIATE RELEASE) PO PRN (16:00)
[2020-11-02] MEDS: FILGRASTIM 480 MCG/1.6 ML VIAL SQ SCH (19:22)
[2020-11-02] MEDS: MELATONIN 3 MG TAB PO SCH (20:06)
[2020-11-02] MEDS: ATORVASTATIN 20 MG TAB PO SCH (20:06)
[2020-11-02] MEDS: LORATADINE 10 MG TAB PO SCH (20:06)
[2020-11-02] MEDS: diphenhydrAMINE Capsule 25 MG CAP PO SCH (20:06)
[2020-11-03] MEDS ORDERED: HEPARIN 100 UNIT/ML 5ML FLUSH FLUSH PRN (01:14)
[2020-11-03] MEDS: CEFEPIME 2,000 MG in SYRINGE 0 ML IV SCH ×3 (04:27→20:26)
[2020-11-03] MEDS: ACETAMINOPHEN 325 MG TAB PO PRN ×3 (05:04→17:43)
--- NOTE | 2020-11-03 05:06 | Electrocardiogram Report ---
Test Reason : Blood Pressure : / mmHG Vent. Rate : 077 BPM Atrial Rate : 077 BPM P-R Int : 144 ms QRS Dur : 098 ms QT Int : 378 ms P-R-T Axes : 020 028 044 degrees QTc Int : 427 ms Normal sinus rhythm Normal ECG No previous ECGs available Confirmed by Dominic Diehl ([id number]) on 11/03/2020 5:06:06 AM Referred By: REFERRED SELF Confirmed By:Dominic Diehl
[2020-11-03 08:16] LABS: Hematocrit (blood only) 16.8 % (42-52); Hemoglobin 6.2 g/dL (14.0-18.0); Mean Corpuscular Hemoglobin 30.2 pg (25-34); Mean Corpuscular Hgb Conc 36.9 g/dL (32-36); Mean Platelet Volume 8.3 fL (7.4-10.4); Platelet Count 11 K/uL (130-400); RDW Coefficient of Variation 13.7 % (11.5-14.5); RDW Standard Deviation 40.9 fL (36.4-46.3); Red Blood Count 2.05 M/uL (4.7-6.1); White Blood Count 0.08 K/uL (4.8-10.8)
[2020-11-03 08:21] LABS: Albumin Level 2.7 gm/dl (3.4-5.0); BUN Creatinine Ratio 17.7 (10-20); Calcium 8.6 mg/dl (8.5-10.1); Creatinine Clr Calc Pharmacy 101.1 ml/min; Est GFR (African American) 108.7; Est GFR (Non-African American) 93.8; Magnesium 1.9 mg/dl (1.8-2.4)
[2020-11-03 08:24] LABS: Albumin Globulin Ratio 0.9 (0.9-2); Bilirubin,Total 0.7 mg/dl (0.2-1); Globulin 2.9 gm/dl (2.5-4.0); Phosphorus 2.7 mg/dl (2.5-4.9); Total Protein 5.6 gm/dl (6.4-8.2)
[2020-11-03] MEDS ORDERED: SODIUM CHLORIDE 0.9% 250 ML IV PRN (08:27)
[2020-11-03] MEDS ORDERED: FUROSEMIDE 40 MG in SYRINGE 0 ML IV ONE ×2 (08:30→16:45)
[2020-11-03] MEDS ORDERED: CALCIUM CARBONATE 500 MG CHEWABLE TAB PO PRN (08:33)
[2020-11-03] MEDS: levETIRAcetam 500 MG TAB PO SCH ×2 (08:35→20:27)
[2020-11-03] MEDS: guaiFENesin 600 MG TABCR PO SCH ×2 (08:35→20:27)
[2020-11-03] MEDS: ACYCLOVIR 400 MG TAB PO SCH ×2 (08:35→20:27)
[2020-11-03] MEDS: FLUCONAZOLE 100 MG TAB PO SCH (08:39)
[2020-11-03] MEDS: FOLIC ACID 1 MG TAB PO SCH (08:39)
[2020-11-03] MEDS: PYRIDOXINE HCL 50 MG TAB PO SCH (08:39)
[2020-11-03] MEDS: DEXTROMETHORPHAN POLYMR COMPLX 60 MG/10 ML UDP PO SCH ×2 (08:39→20:25)
[2020-11-03] MEDS: levoFLOXacin 500 MG TAB PO SCH (08:39)
[2020-11-03] MEDS: PROCHLORPERAZINE MALEATE 10 MG TAB PO PRN ×2 (08:41→19:10)
[2020-11-03] MEDS ORDERED: FUROSEMIDE 40 MG/4 ML VIAL IV SCH (10:00)
--- NOTE | 2020-11-03 10:58 | Hospitalist Progress Note ---
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 Has had disease progression on methotrexate plus DAEPO CHR under care at [facility] Currently receiving combination of rituximab plus etoposide and ARAC-first dose received around October 22 Was seen in the clinic with pancytopenia and was sent in to ER for transfusion Noted to have white count of 0.04, hemoglobin 5.9 and platelet 16 on admission The admitting doctor did talk to the on-call political geographer/oncologist and was advised for transfusions Received 1 unit of blood and 1 unit of platelet yesterday and the hemoglobin remained at 6.2 today Will give 2 units of packed red cell and 1 unit of platelet again today We will continue Neupogen for now Maculopapular rash Left lower abdomen Likely secondary to thrombocytopenia Having diarrhea Likely secondary to chemotherapy and/or intravenous antibiotic Doubt any infection We will check C. 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 Has had disease progression on methotrexate plus DAEPO CHR under care at [facility] Currently receiving combination of rituximab plus etoposide and ARAC-first dose received around October 22 We will discuss with local political geographer/oncologist (3) Neutropenic fever: Mild temperature Has been started on intravenous cefepime We will continue his home medications including acyclovir, Diflucan , Levaquin and sulfa Await blood and urine cultures (4) Sepsis: Suspected sepsis secondary to neutropenic fever No evidence of pneumonia and/or UTI on presentation Awaiting cultures DVT prophylaxis SCDs due to severe thrombocytopenia CODE STATUS Full Admission and Anticipated Discharge Date Admission Date: November 02, 2020 Subjective 11/03/2020 The patient was seen and examined in medical telemetry unit He has been feeling much better today with decreasing abdominal symptoms and has been tolerating diet Remains weak and lethargic No fever and/or chills Review of Systems Review of Systems: All systems reviewed and are unremarkable except as noted below Integumentary: + rash (Lower left abdomen petechial rash-not increased) Neurologic: + generalized weakness Physical Exam Physical Exam: Lying in bed comfortably Constitutional: well developed and well nourished; not ill appearing Eyes: PERRL, conjunctivae normal, anicteric sclerae ENMT: external ear and nose normal, oropharynx normal Neck: trachea midline, no thyromegaly Respiratory: no respiratory distress Auscultation: lungs clear to auscultation bilaterally Cardiovascular: Rate/Rhythm: regular rate and regular rhythm Heart Sounds: no murmur Extremities: no edema Gastrointestinal (Abdomen): Inspection/Auscultation: normal bowel sounds; abdomen not distended Percussion/Palpation: abdomen soft; abdomen nontender Skin: + rash (Papular petechial rash involving the left lower abdomen) Neurologic: Alert, awake and oriented x3. Generally weak Psychiatric: A+Ox3, euthymic affect Lymphatic: no cervical or axillary lymphadenopathy Results & Data Results & Data ([facility]) Vital Signs (Past 12 Hours) Vital Signs Temp Pulse Pulse Resp BP BP Pulse Ox 11/03/20 10:30 37.2 C 69 19 101/58 L 99 11/03/20 10:00 37.2 C 74 18 102/63 98 11/03/20 09:45 36.6 C 62 16 101/56 L 99 11/03/20 09:25 37.0 C 71 16 101/59 L 98 11/03/20 08:54 36.9 C 78 19 101/64 97 11/03/20 04:00 37.9 C H 83 16 105/66 95 11/03/20 01:11 75 11/02/20 23:24 37.1 C 78 17 103/66 96 Laboratory Results Short CBC 11/02/20 11/03/20 Range/Units 11:42 07:30 WBC 0.04 L* 0.08 L* (4.8-10.8) K/uL Hgb 7.1 L 6.2 L* (14.0-18.0) g/dL Hct 19.6 L* 16.8 L* (42-52) % Plt Count 20 L* 11 L* (130-400) K/uL BMP 11/02/20 11/03/20 11:42 07:30 Sodium 137 138 Potassium 3.9 4.0 Chloride 107 109 H Carbon Dioxide 22 24 BUN 20 H 16 Creatinine 0.88 0.90 Glucose 103 H 108 H Calcium 8.9 8.6 Liver Function 11/03/20 Range/Units 07:30 Total Bilirubin 0.7 (0.2-1) mg/dl AST 5 L (15-37) U/L ALT 21 (12-78) U/L Alkaline Phosphatase 78 (45-117) U/L Albumin 2.7 L (3.4-5.0) gm/dl Medications Administered Current Inpatient Medications Acetaminophen (Acetaminophen 325 Mg Tab) 650 mg PO Q4H PRN PRN Reason: Pain or Fever Stop: 12/02/20 03:40 Last Admin: 11/03/20 05:04 Dose: 650 mg Documented by: Acyclovir (Acyclovir 400 Mg Tab) 800 mg PO BID NARESH Stop: 12/02/20 08:59 Last Admin: 11/03/20 08:35 Dose: 800 mg Documented by: Atorvastatin Calcium (Atorvastatin 20 Mg Tab) 20 mg PO QPM NARESH Stop: 12/02/20 20:59 Last Admin: 11/02/20 20:06 Dose: 20 mg Documented by: Baclofen (Baclofen 10 Mg Tab) 10 mg PO DAILY PRN PRN Reason: Hiccups Stop: 12/02/20 03:40 Calcium Carbonate (Calcium Carbonate 500 Mg Chewable Tab) 500 mg PO Q6H PRN PRN Reason: Indigestion Stop: 12/03/20 08:32 Lidocaine HCl 60 ml/Diphenhydramine HCl 150 mg/ Al Hydrox/Mg Hydrox/Simethicone 60 ml/ Glycerin 60 ml/ BARCODE IDENTIFIER 1 ea 0 ml MT UD PRN PRN Reason: PRN Stop: 12/02/20 06:14 Cyclobenzaprine HCl (Cyclobenzaprine Hcl 5 Mg Tab) 5 mg PO DAILY PRN PRN Reason: Muscle Spasm Stop: 12/02/20 03:40 Dextromethorphan Polymer Complex (Dextromethorphan Polymr Complx 60 Mg/10 Ml Udp) 60 mg PO Q12H NARESH Stop: 12/02/20 08:59 Last Admin: 11/03/20 08:39 Dose: 60 mg Documented by: Diphenhydramine HCl (Diphenhydramine Capsule 25 Mg Cap) 25 mg PO HS NARESH Stop: 12/02/20 20:59 Last Admin: 11/02/20 20:06 Dose: 25 mg Documented by: Dronabinol (Dronabinol 2.5 Mg Cap) 2.5 mg PO TID PRN PRN Reason: Nausea Stop: 12/02/20 14:13 Filgrastim (Filgrastim 480 Mcg/1.6 Ml Vial) 480 mcg SQ DAILY@1900 [facility] Stop: 12/02/20 18:59 Last Admin: 11/02/20 19:22 Dose: 480 mcg Documented by: Fluconazole (Fluconazole 100 Mg Tab) 400 mg PO QAM [facility] Stop: 12/02/20 08:59 Last Admin: 11/03/20 08:39 Dose: 400 mg Documented by: Folic Acid (Folic Acid 1 Mg Tab) 1 mg PO QAM [facility] Stop: 12/02/20 08:59 Last Admin: 11/03/20 08:39 Dose: 1 mg Documented by: Furosemide (Furosemide 40 Mg/4 Ml Vial) 40 mg IV 1000 [facility] Stop: 11/03/20 14:00 Guaifenesin (Guaifenesin 600 Mg Tabcr) 1,200 mg PO Q12H [facility] Stop: 12/02/20 08:59 Last Admin: 11/03/20 08:35 Dose: 1,200 mg Documented by: Heparin Sodium (Porcine) (Heparin 100 Unit/Ml 5ml Flush) 5 ml FLUSH PRN PRN PRN Reason: Flush Stop: 12/03/20 01:13 Sodium Chloride (Nss 1000ml) 1,000 mls @ 75 mls/hr IV .[id number] [facility] Stop: 12/02/20 03:40 Last Admin: 11/02/20 23:45 Dose: 75 mls/hr Documented by: Cefepime HCl 2,000 mg/ Syringe 20 mls @ 5 mls/min IV Q8H [facility]; Protocol Stop: 11/08/20 20:33 Last Admin: 11/03/20 04:27 Dose: 5 mls/min Documented by: Sodium Chloride (Nss) 250 mls @ 15 mls/hr IV .[id number] PRN PRN Reason: For Transfusion Stop: 11/03/20 18:28 Levetiracetam (Levetiracetam 500 Mg Tab) 500 mg PO BID [facility] Stop: 12/02/20 08:59 Last Admin: 11/03/20 08:35 Dose: 500 mg Documented by: Levofloxacin (Levofloxacin 500 Mg Tab) 500 mg PO QAM [facility] Stop: 12/02/20 08:59 Last Admin: 11/03/20 08:39 Dose: 500 mg Documented by: Loratadine (Loratadine 10 Mg Tab) 10 mg PO DAILY@1900 [facility] Stop: 12/02/20 18:59 Last Admin: 11/02/20 20:06 Dose: 10 mg Documented by: Lorazepam (Lorazepam 0.5 Mg Tab) 0.5 mg PO Q4H PRN PRN Reason: Nausea Stop: 12/02/20 03:40 Melatonin (Melatonin 3 Mg Tab) 9 mg PO HS [facility] Stop: 12/02/20 20:59 Last Admin: 11/02/20 20:06 Dose: 9 mg Documented by: Miscellaneous Information (Cefepime Consult Active) 1 ea N/A UD PRN PRN Reason: Consult Stop: 12/02/20 04:23 Nitroglycerin (Nitroglycerin Sl 0.4 Mg/Tab Tab) 0.4 mg SL UD PRN PRN Reason: Chest Pain Stop: 12/02/20 03:40 Ondansetron HCl (Ondansetron Inj 2 Mg/Ml 2 Ml Vial) 4 mg IV Q6H PRN PRN Reason: Nausea Stop: 12/02/20 03:40 Last Admin: 11/02/20 08:16 Dose: 4 mg Documented by: Ondansetron HCl (Ondansetron 4 Mg Od Tab) 4 mg PO Q6H PRN PRN Reason: Nausea And Vomiting Stop: 12/02/20 04:27 Oxycodone HCl (Oxycodone Hcl Ir 5 Mg Tab (Immediate Release)) 5 mg PO Q6H PRN PRN Reason: PAIN-MODERATE/SEVERE Stop: 11/16/20 04:06 Last Admin: 11/02/20 16:00 Dose: 5 mg Documented by: Polyethylene Glycol (Polyethylene (Miralax) 17 Gm Pack) 17 gm PO DAILY PRN PRN Reason: Constipation Stop: 12/02/20 03:40 Prochlorperazine (Prochlorperazine Maleate 10 Mg Tab) 10 mg PO Q6H PRN PRN Reason: Nausea Stop: 12/02/20 03:40 Last Admin: 11/03/20 08:41 Dose: 10 mg Documented by: Pyridoxine HCl (Pyridoxine Hcl 50 Mg Tab) 100 mg PO QAM [facility] Stop: 12/02/20 08:59 Last Admin: 11/03/20 08:39 Dose: 100 mg Documented by: Sennosides (Senna 8.6 Mg Tab) 8.6 mg PO DAILY PRN PRN Reason: Constipation Stop: 12/02/20 03:40 Last Admin: 11/02/20 16:51 Dose: 8.6 mg Documented by: Trimethoprim/Sulfamethoxazole (Sulfa/Trimeth 400/80mg Tab) 1 tab PO MoWeFr@0900 [facility] Stop: 12/02/20 08:59 Last Admin: 11/02/20 08:08 Dose: 1 tab Documented by: (1) Sepsis Sepsis acute organ dysfunction status: without acute organ dysfunction Sepsis type: sepsis due to unspecified organism Qualified Code(s): A41.9 - Sepsis, unspecified organism
[2020-11-03 16:27] LABS: Hematocrit (blood only) 18.9 % (42-52); Hemoglobin 6.8 g/dL (14.0-18.0); Mean Corpuscular Volume 83.3 fL (80-100); Mean Platelet Volume 8.5 fL (7.4-10.4); Platelet Count 28 K/uL (130-400); RDW Coefficient of Variation 14.5 % (11.5-14.5); RDW Standard Deviation 43.8 fL (36.4-46.3); Red Blood Count 2.27 M/uL (4.7-6.1)
[2020-11-03 16:31] LABS: Platelet Estimate Decreased (Normal)
[2020-11-03] MEDS: SODIUM CHLORIDE 0.9% 1000ML 1,000 ML IV SCH ×2 (17:07→20:32)
[2020-11-03] MEDS: FILGRASTIM 480 MCG/1.6 ML VIAL SQ SCH (19:09)
[2020-11-03] MEDS: LORATADINE 10 MG TAB PO SCH (19:10)
[2020-11-03] MEDS: ATORVASTATIN 20 MG TAB PO SCH (20:27)
[2020-11-03] MEDS: diphenhydrAMINE Capsule 25 MG CAP PO SCH (20:27)
[2020-11-03] MEDS: MELATONIN 3 MG TAB PO SCH (20:27)
[2020-11-03] MEDS: oxyCODONE HCL IR 5 MG TAB (IMMEDIATE RELEASE) PO PRN (20:31)
[2020-11-04] MEDS: CEFEPIME 2,000 MG in SYRINGE 0 ML IV SCH ×3 (04:49→20:45)
[2020-11-04 08:21] LABS: Hematocrit (blood only) 21.5 % (42-52); Hemoglobin 7.9 g/dL (14.0-18.0); Mean Corpuscular Hemoglobin 30.4 pg (25-34); Mean Corpuscular Hgb Conc 36.7 g/dL (32-36); Mean Corpuscular Volume 82.7 fL (80-100); Mean Platelet Volume 7.3 fL (7.4-10.4); Platelet Count 17 K/uL (130-400); RDW Coefficient of Variation 13.7 % (11.5-14.5); RDW Standard Deviation 40.9 fL (36.4-46.3); White Blood Count 0.12 K/uL (4.8-10.8)
[2020-11-04 08:32] LABS: BUN Creatinine Ratio 20.4 (10-20); Calcium 8.7 mg/dl (8.5-10.1); Creatinine Clr Calc Pharmacy 109.6 ml/min; Est GFR (African American) 112.4; Potassium 3.2 mmol/L (3.5-5.1)
[2020-11-04] MEDS: PROCHLORPERAZINE MALEATE 10 MG TAB PO PRN (08:36)
[2020-11-04] MEDS: guaiFENesin 600 MG TABCR PO SCH ×2 (08:37→20:38)
[2020-11-04] MEDS: levETIRAcetam 500 MG TAB PO SCH ×2 (08:37→20:36)
[2020-11-04] MEDS: ACYCLOVIR 400 MG TAB PO SCH ×2 (08:37→20:37)
[2020-11-04] MEDS: DEXTROMETHORPHAN POLYMR COMPLX 60 MG/10 ML UDP PO SCH ×2 (08:37→20:38)
[2020-11-04] MEDS: levoFLOXacin 500 MG TAB PO SCH (08:38)
[2020-11-04] MEDS: FOLIC ACID 1 MG TAB PO SCH (08:38)
[2020-11-04] MEDS: FLUCONAZOLE 100 MG TAB PO SCH (08:38)
[2020-11-04] MEDS: PYRIDOXINE HCL 50 MG TAB PO SCH (08:38)
[2020-11-04] MEDS: SODIUM CHLORIDE 0.9% 1000ML 1,000 ML IV SCH (08:41)
[2020-11-04] MEDS: POTASSIUM CHLORIDE / WTR 10 MEQ/100 ML PLCT IV SCH ×2 (09:38→10:46)
--- NOTE | 2020-11-04 11:32 | Hospitalist Progress Note ---
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 Has had disease progression on methotrexate plus DAEPO CHR under care at [facility] Currently receiving combination of rituximab plus etoposide and ARAC-first dose received around October 22 Was seen in the clinic with pancytopenia and was sent in to ER for transfusion Noted to have white count of 0.04, hemoglobin 5.9 and platelet 16 on admission The admitting doctor did talk to the on-call electrical products engineer/oncologist and was advised for transfusions Received 1 unit of blood and 1 unit of platelet yesterday and the hemoglobin remained at 6.2 today Will give 2 units of packed red cell and 1 unit of platelet again today We will continue Neupogen for now He received 3 units of packed cells so far and 2 units of platelet pheresis His blood counts as of today are white count 0.12, hemoglobin 7.9 and platelet 17 We will repeat the blood counts tomorrow and possible discharge tomorrow if counts remain acceptable Maculopapular rash Left lower abdomen Likely secondary to thrombocytopenia Having diarrhea Likely secondary to chemotherapy and/or intravenous antibiotic Doubt any infection We will check C. 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 Has had disease progression on methotrexate plus DAEPO CHR under care at [facility] Currently receiving combination of rituximab plus etoposide and ARAC-first dose received around October 22 We will discuss with local electrical products engineer/oncologist (3) Neutropenic fever: Mild temperature Has been started on intravenous cefepime We will continue his home medications including acyclovir, Diflucan , Levaquin and sulfa Await blood and urine cultures-cultures have been negative We will likely stop antibiotic on discharge (4) Sepsis: Suspected sepsis secondary to neutropenic fever No evidence of pneumonia and/or UTI on presentation Awaiting cultures-have been negative We will discontinue antibiotic tomorrow DVT prophylaxis SCDs due to severe thrombocytopenia CODE STATUS Full Admission and Anticipated Discharge Date Admission Date: November 02, 2020 Subjective 11/03/2020 The patient was seen and examined in medical telemetry unit He has been feeling much better today with decreasing abdominal symptoms and has been tolerating diet Remains weak and lethargic No fever and/or chills 11/04/2020 The patient was seen and examined in medical telemetry unit He has been feeling much better today Still complains to have some problem with swallowing and that has been ongoing Denies any fever and/or chills, any nausea no vomiting, any shortness of breath or palpitation Review of Systems Review of Systems: All systems reviewed and are unremarkable except as noted below Integumentary: + rash (Lower left abdomen petechial rash-not increased) Neurologic: + generalized weakness Physical Exam Physical Exam: Lying in bed comfortably Constitutional: well developed and well nourished; not ill appearing Eyes: PERRL, conjunctivae normal, anicteric sclerae ENMT: external ear and nose normal, oropharynx normal Neck: trachea midline, no thyromegaly Respiratory: no respiratory distress Auscultation: lungs clear to auscultation bilaterally Cardiovascular: Rate/Rhythm: regular rate and regular rhythm Heart Sounds: no murmur Extremities: no edema Gastrointestinal (Abdomen): Inspection/Auscultation: normal bowel sounds; abdomen not distended Percussion/Palpation: abdomen soft; abdomen nontender Skin: + rash (Papular petechial rash involving the left lower abdomen) Neurologic: Alert awake and oriented x3. No focal sensory and motor deficit appreciated Psychiatric: A+Ox3, euthymic affect Lymphatic: no cervical or axillary lymphadenopathy Results & Data Results & Data ([facility]) Vital Signs (Past 12 Hours) Vital Signs Temp Pulse Pulse Resp BP Pulse Ox 11/04/20 10:23 72 11/04/20 08:44 37.2 C 84 16 111/75 95 11/04/20 04:59 37.4 C 75 18 109/63 95 11/04/20 00:17 76 Laboratory Results Short CBC 11/03/20 11/04/20 Range/Units 15:54 07:43 WBC 0.10 L* 0.12 L* (4.8-10.8) K/uL Hgb 6.8 L* 7.9 L (14.0-18.0) g/dL Hct 18.9 L* 21.5 L (42-52) % Plt Count 28 L* D 17 L* (130-400) K/uL [facility] 11/04/20 07:43 Sodium 138 Potassium 3.2 L D Chloride 105 Carbon Dioxide 25 BUN 17 Creatinine 0.83 Glucose 105 H Calcium 8.7 Medications Administered Current Inpatient Medications Acetaminophen (Acetaminophen 325 Mg Tab) 650 mg PO Q4H PRN PRN Reason: Pain or Fever Stop: 12/02/20 03:40 Last Admin: 11/03/20 17:43 Dose: 650 mg Documented by: Acyclovir (Acyclovir 400 Mg Tab) 800 mg PO BID NARESH Stop: 12/02/20 08:59 Last Admin: 11/04/20 08:37 Dose: 800 mg Documented by: Atorvastatin Calcium (Atorvastatin 20 Mg Tab) 20 mg PO QPM NARESH Stop: 12/02/20 20:59 Last Admin: 11/03/20 20:27 Dose: 20 mg Documented by: Baclofen (Baclofen 10 Mg Tab) 10 mg PO DAILY PRN PRN Reason: Hiccups Stop: 12/02/20 03:40 Calcium Carbonate (Calcium Carbonate 500 Mg Chewable Tab) 500 mg PO Q6H PRN PRN Reason: Indigestion Stop: 12/03/20 08:32 Lidocaine HCl 60 ml/Diphenhydramine HCl 150 mg/ Al Hydrox/Mg Hydrox/Simethicone 60 ml/ Glycerin 60 ml/ BARCODE IDENTIFIER 1 ea 0 ml MT UD PRN PRN Reason: PRN Stop: 12/02/20 06:14 Cyclobenzaprine HCl (Cyclobenzaprine Hcl 5 Mg Tab) 5 mg PO DAILY PRN PRN Reason: Muscle Spasm Stop: 12/02/20 03:40 Dextromethorphan Polymer Complex (Dextromethorphan Polymr Complx 60 Mg/10 Ml Udp) 60 mg PO Q12H NARESH Stop: 12/02/20 08:59 Last Admin: 11/04/20 08:37 Dose: 60 mg Documented by: Diphenhydramine HCl (Diphenhydramine Capsule 25 Mg Cap) 25 mg PO HS NARESH Stop: 12/02/20 20:59 Last Admin: 11/03/20 20:27 Dose: 25 mg Documented by: Dronabinol (Dronabinol 2.5 Mg Cap) 2.5 mg PO TID PRN PRN Reason: Nausea Stop: 12/02/20 14:13 Filgrastim (Filgrastim 480 Mcg/1.6 Ml Vial) 480 mcg SQ DAILY@1900 [facility] Stop: 12/02/20 18:59 Last Admin: 11/03/20 19:09 Dose: 480 mcg Documented by: Fluconazole (Flucon[facility] 100 Mg Tab) [facility] Stop: 12/02/20 08:59 Last Admin: 11/04/20 08:38 Dose: 400 mg Documented by: Folic Acid (Folic Acid 1 Mg Tab) 1 mg PO QAM [facility] Stop: 12/02/20 08:59 Last Admin: 11/04/20 08:38 Dose: 1 mg Documented by: Guaifenesin (Guaifenesin 600 Mg Tabcr) 1,200 mg PO Q12H [facility] Stop: 12/02/20 08:59 Last Admin: 11/04/20 08:37 Dose: 1,200 mg Documented by: Heparin Sodium (Porcine) (Heparin 100 Unit/Ml 5ml Flush) 5 ml FLUSH PRN PRN PRN Reason: Flush Stop: 12/03/20 01:13 Sodium Chloride (Nss 1000ml) 1,000 mls @ 75 mls/hr IV .[id number] [facility] Stop: 12/02/20 03:40 Last Admin: 11/04/20 08:41 Dose: 75 mls/hr Documented by: Cefepime HCl 2,000 mg/ Syringe 20 mls @ 5 mls/min IV Q8H [facility]; Protocol Stop: 11/08/20 20:33 Last Admin: 11/04/20 04:49 Dose: 5 mls/min Documented by: Potassium Chloride (K [place] / Wtr) 10 meq in 100 mls @ 100 mls/hr IV Q1H [facility] Stop: 11/04/20 11:29 Last Admin: 11/04/20 10:46 Dose: 100 mls/hr Documented by: Levetiracetam (Levetiracetam 500 Mg Tab) 500 mg PO BID [facility] Stop: 12/02/20 08:59 Last Admin: 11/04/20 08:37 Dose: 500 mg Documented by: Levofloxacin (Levofloxacin 500 Mg Tab) [facility] Stop: 12/02/20 08:59 Last Admin: 11/04/20 08:38 Dose: 500 mg Documented by: Loratadine (Loratadine 10 Mg Tab) 10 mg PO DAILY@1900 [facility] Stop: 12/02/20 18:59 Last Admin: 11/03/20 19:10 Dose: 10 mg Documented by: Lorazepam (Lorazepam 0.5 Mg Tab) 0.5 mg PO Q4H PRN PRN Reason: Nausea Stop: 12/02/20 03:40 Melatonin (Melatonin 3 Mg Tab) 9 mg PO HS [facility] Stop: 12/02/20 20:59 Last Admin: 11/03/20 20:27 Dose: 9 mg Documented by: Miscellaneous Information (Cefepime Consult Active) 1 ea N/A UD PRN PRN Reason: Consult Stop: 12/02/20 04:23 Nitroglycerin (Nitroglycerin Sl 0.4 Mg/Tab Tab) 0.4 mg SL UD PRN PRN Reason: Chest Pain Stop: 12/02/20 03:40 Ondansetron HCl (Ondansetron Inj 2 Mg/Ml 2 Ml Vial) 4 mg IV Q6H PRN PRN Reason: Nausea Stop: 12/02/20 03:40 Last Admin: 11/02/20 08:16 Dose: 4 mg Documented by: Ondansetron HCl (Ondansetron 4 Mg Od Tab) 4 mg PO Q6H PRN PRN Reason: Nausea And Vomiting Stop: 12/02/20 04:27 Oxycodone HCl (Oxycodone Hcl Ir 5 Mg Tab (Immediate Release)) 5 mg PO Q6H PRN PRN Reason: PAIN-MODERATE/SEVERE Stop: 11/16/20 04:06 Last Admin: 11/03/20 20:31 Dose: 5 mg Documented by: Polyethylene Glycol (Polyethylene (Miralax) 17 Gm Pack) 17 gm PO DAILY PRN PRN Reason: Constipation Stop: 12/02/20 03:40 Prochlorperazine (Prochlorperazine Maleate 10 Mg Tab) 10 mg PO Q6H PRN PRN Reason: Nausea Stop: 12/02/20 03:40 Last Admin: 11/04/20 08:36 Dose: 10 mg Documented by: Pyridoxine HCl (Pyridoxine Hcl 50 Mg Tab) 100 mg PO QAM [facility] Stop: 12/02/20 08:59 Last Admin: 11/04/20 08:38 Dose: 100 mg Documented by: Sennosides (Senna 8.6 Mg Tab) 8.6 mg PO DAILY PRN PRN Reason: Constipation Stop: 12/02/20 03:40 Last Admin: 11/02/20 16:51 Dose: 8.6 mg Documented by: Trimethoprim/Sulfamethoxazole (Sulfa/Trimeth 400/80mg Tab) 1 tab PO MoWeFr@0900 [facility] Stop: 12/02/20 08:59 Last Admin: 11/02/20 08:08 Dose: 1 tab Documented by: (1) Sepsis Sepsis acute organ dysfunction status: without acute organ dysfunction Sepsis type: sepsis due to unspecified organism Qualified Code(s): A41.9 - Sepsis, unspecified organism
[2020-11-04] MEDS: LORATADINE 10 MG TAB PO SCH (18:25)
[2020-11-04] MEDS: FILGRASTIM 480 MCG/1.6 ML VIAL SQ SCH (18:25)
[2020-11-04] MEDS: MELATONIN 3 MG TAB PO SCH (20:36)
[2020-11-04] MEDS: diphenhydrAMINE Capsule 25 MG CAP PO SCH (20:36)
[2020-11-04] MEDS: ATORVASTATIN 20 MG TAB PO SCH (20:37)
[2020-11-04] MEDS: oxyCODONE HCL IR 5 MG TAB (IMMEDIATE RELEASE) PO PRN (20:45)
[2020-11-05] MEDS: SODIUM CHLORIDE 0.9% 1000ML 1,000 ML IV SCH (00:09)
[2020-11-05] MEDS: CEFEPIME 2,000 MG in SYRINGE 0 ML IV SCH ×2 (05:31→12:18)
[2020-11-05 06:27] LABS: Hematocrit (blood only) 21.8 % (42-52); Hemoglobin 7.9 g/dL (14.0-18.0); Mean Corpuscular Hemoglobin 30.4 pg (25-34); Mean Corpuscular Hgb Conc 36.2 g/dL (32-36); Mean Corpuscular Volume 83.8 fL (80-100); Mean Platelet Volume 8.6 fL (7.4-10.4); Platelet Count 16 K/uL (130-400); RDW Coefficient of Variation 13.6 % (11.5-14.5); RDW Standard Deviation 41.4 fL (36.4-46.3); White Blood Count 0.18 K/uL (4.8-10.8)
[2020-11-05 06:42] LABS: BUN Creatinine Ratio 17.2 (10-20); Calcium 8.8 mg/dl (8.5-10.1); Creatinine Clr Calc Pharmacy 113.7 ml/min; Est GFR (African American) 114.1; Est GFR (Non-African American) 98.5; Magnesium 1.9 mg/dl (1.8-2.4); Phosphorus 2.6 mg/dl (2.5-4.9); Potassium 3.2 mmol/L (3.5-5.1)
[2020-11-05] MEDS ORDERED: POTASSIUM CHLORIDE CRTAB 20 MEQ TABCR PO ONE (08:00)
[2020-11-05] MEDS: POTASSIUM CHLORIDE / WTR 10 MEQ/100 ML PLCT IV SCH ×2 (08:24→09:29)
[2020-11-05] MEDS: ONDANSETRON INJ 2 MG/ML 2 ML VIAL IV PRN (08:30)
[2020-11-05] MEDS: DEXTROMETHORPHAN POLYMR COMPLX 60 MG/10 ML UDP PO SCH (11:01)
[2020-11-05] MEDS: guaiFENesin 600 MG TABCR PO SCH (11:01)
[2020-11-05] MEDS: levoFLOXacin 500 MG TAB PO SCH (11:02)
[2020-11-05] MEDS: ACYCLOVIR 400 MG TAB PO SCH (11:02)
[2020-11-05] MEDS: FLUCONAZOLE 100 MG TAB PO SCH (11:02)
[2020-11-05] MEDS: FOLIC ACID 1 MG TAB PO SCH (11:02)
[2020-11-05] MEDS: PYRIDOXINE HCL 50 MG TAB PO SCH (11:02)
[2020-11-05] MEDS: POTASSIUM CHLORIDE PWD 20 MEQ PACK PO SCH ×2 (11:03→12:19)
[2020-11-05] MEDS: SULFA/TRIMETH 400/80MG TAB PO SCH (11:03)
[2020-11-05] MEDS: levETIRAcetam 500 MG TAB PO SCH (11:03)
--- NOTE | 2020-11-05 11:39 | Hospitalist Progress Note ---
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 Has had disease progression on methotrexate plus DAEPO CHR under care at [facility] Currently receiving combination of rituximab plus etoposide and ARAC-first dose received around October 22 Was seen in the clinic with pancytopenia and was sent in to ER for transfusion Noted to have white count of 0.04, hemoglobin 5.9 and platelet 16 on admission The admitting doctor did talk to the on-call agronomy professor/oncologist and was advised for transfusions Received 1 unit of blood and 1 unit of platelet yesterday and the hemoglobin remained at 6.2 today Will give 2 units of packed red cell and 1 unit of platelet again today We will continue Neupogen for now He received 3 units of packed cells so far and 2 units of platelet pheresis His blood counts as of today are white count 0.12, hemoglobin 7.9 and platelet 17 We will repeat the blood counts tomorrow and possible discharge tomorrow if counts remain acceptable His blood tests are better today with a.m. white count 0.18, hemoglobin 7.9 and platelet 16. Barium swallow cannot be done today due to the room being down Discussed with Dr. Harris, the local oncologist and was advised that the patient go home and will have her the plan blood test as scheduled Maculopapular rash Left lower abdomen Likely secondary to thrombocytopenia The rash is almost gone Having diarrhea Likely secondary to chemotherapy and/or intravenous antibiotic Doubt any infection We will check C. 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 Moore's office (3) Neutropenic fever: Mild temperature Has been started on intravenous cefepime We will continue his home medications including acyclovir, Diflucan , Levaquin and sulfa Await blood and urine cultures-cultures have been negative We will likely stop antibiotic on discharge No fever and/or chills and the blood cultures have been negative We will discontinue cefepime (4) Sepsis: Suspected sepsis secondary to neutropenic fever No evidence of pneumonia and/or UTI on presentation Awaiting cultures-have been negative We will discontinue antibiotic tomorrow DVT prophylaxis SCDs due to severe thrombocytopenia CODE STATUS Full Admission and Anticipated Discharge Date Admission Date: November 02, 2020 Subjective 11/03/2020 The patient was seen and examined in medical telemetry unit He has been feeling much better today with decreasing abdominal symptoms and has been tolerating diet Remains weak and lethargic No fever and/or chills 11/04/2020 The patient was seen and examined in medical telemetry unit He has been feeling much better today Still complains to have some problem with swallowing and that has been ongoing Denies any fever and/or chills, any nausea no vomiting, any shortness of breath or palpitation 11/05/2019 The patient was seen and examined in medical telemetry unit He has been eating reasonably well today denies any significant symptoms He is generally weak and the rash is almost gone He wants to go home Review of Systems Review of Systems: All systems reviewed and are unremarkable except as noted below Integumentary: no rash (Lower left abdomen petechial rash-not increased) Neurologic: + generalized weakness Physical Exam Physical Exam: Lying in bed comfortably Constitutional: well developed and well nourished; not ill appearing Eyes: PERRL, conjunctivae normal, anicteric sclerae ENMT: external ear and nose normal, oropharynx normal Neck: trachea midline, no thyromegaly Respiratory: no respiratory distress Auscultation: lungs clear to auscul tation bilaterally Cardiovascular: Rate/Rhythm: regular rate and regular rhythm Heart Sounds: no murmur Extremities: no edema Gastrointestinal (Abdomen): Inspection/Auscultation: normal bowel sounds; abdomen not distended Percussion/Palpation: abdomen soft; abdomen nontender Skin: no rashes (Papular petechial rash involving the left lower abdomen) Psychiatric: A+Ox3, euthymic affect Lymphatic: no cervical or axillary lymphadenopathy Results & Data Results & Data ([facility]) Vital Signs (Past 12 Hours) Vital Signs Temp Pulse Pulse Resp BP Pulse Ox 11/05/20 11:19 37.3 C 74 20 115/73 97 11/05/20 08:30 72 11/05/20 08:15 36.9 C 70 20 122/81 97 Laboratory Results Short CBC 11/05/20 Range/Units 05:42 WBC 0.18 L* (4.8-10.8) K/uL Hgb 7.9 L (14.0-18.0) g/dL Hct 21.8 L (42-52) % Plt Count 16 L* (130-400) K/uL BMP 11/05/20 05:42 Sodium 139 Potassium 3.2 L Chloride 107 Carbon Dioxide 23 BUN 14 Creatinine 0.80 Glucose 102 H Calcium 8.8 Medications Administered Current Inpatient Medications Acetaminophen (Acetaminophen 325 Mg Tab) 650 mg PO Q4H PRN PRN Reason: Pain or Fever Stop: 12/02/20 03:40 Last Admin: 11/03/20 17:43 Dose: 650 mg Documented by: Acyclovir (Acyclovir 400 Mg Tab) 800 mg PO BID N[facility]ESH Stop: 12/02/20 08:59 Last Admin: 11/05/20 11:02 Dose: 800 mg Documented by: Atorvastatin Calcium (Atorvastatin 20 Mg Tab) 20 mg PO QPM [facility] Stop: 12/02/20 20:59 Last Admin: 11/04/20 20:37 Dose: 20 mg Documented by: Baclofen (Baclofen 10 Mg Tab) 10 mg PO DAILY PRN PRN Reason: Hiccups Stop: 12/02/20 03:40 Calcium Carbonate (Calcium Carbonate 500 Mg Chewable Tab) 500 mg PO Q6H PRN PRN Reason: Indigestion Stop: 12/03/20 08:32 Lidocaine HCl 60 ml/Diphenhydramine HCl 150 mg/ Al Hydrox/Mg Hydrox/Simethicone 60 ml/ Glycerin 60 ml/ BARCODE IDENTIFIER 1 ea 0 ml MT UD PRN PRN Reason: PRN Stop: 12/02/20 06:14 Cyclobenzaprine HCl (Cyclobenzaprine Hcl 5 Mg Tab) 5 mg PO DAILY PRN PRN Reason: Muscle Spasm Stop: 12/02/20 03:40 Dextromethorphan Polymer Complex (Dextromethorphan Polymr Complx 60 Mg/10 Ml Udp) 60 mg PO Q12H [facility] Stop: 12/02/20 08:59 Last Admin: 11/05/20 11:01 Dose: 60 mg Documented by: Diphenhydramine HCl (Diphenhydramine Capsule 25 Mg Cap) 25 mg PO HS [facility] Stop: 12/02/20 20:59 Last Admin: 11/04/20 20:36 Dose: 25 mg Documented by: Dronabinol (Dronabinol 2.5 Mg Cap) 2.5 mg PO TID PRN PRN Reason: Nausea Stop: 12/02/20 14:13 Filgrastim (Filgrastim 480 Mcg/1.6 Ml Vial) 480 mcg SQ DAILY@1900 [facility] Stop: 12/02/20 18:59 Last Admin: 11/04/20 18:25 Dose: 480 mcg Documented by: Fluconazole (Fluconazole 100 Mg Tab) 400 mg PO QAM [facility] Stop: 12/02/20 08:59 Last Admin: 11/05/20 11:02 Dose: 400 mg Documented by: Folic Acid (Folic Acid 1 Mg Tab) 1 mg PO QAM [facility] Stop: 12/02/20 08:59 Last Admin: 11/05/20 11:02 Dose: 1 mg Documented by: Guaifenesin (Guaifenesin 600 Mg Tabcr) 1,200 mg PO Q12H [facility] Stop: 12/02/20 08:59 Last Admin: 11/05/20 11:01 Dose: 1,200 mg Documented by: Heparin Sodium (Porcine) (Heparin 100 Unit/Ml 5ml Flush) 5 ml FLUSH PRN PRN PRN Reason: Flush Stop: 12/03/20 01:13 Sodium Chloride (Nss 1000ml) 1,000 mls @ 75 mls/hr IV .[id number] [facility] Stop: 12/02/20 03:40 Last Admin: 11/05/20 00:09 Dose: 75 mls/hr Documented by: Cefepime HCl 2,000 mg/ Syringe 20 mls @ 5 mls/min IV Q8H [facility]; Protocol Stop: 11/08/20 20:33 Last Admin: 11/05/20 05:31 Dose: 5 mls/min Documented by: Levetiracetam (Levetiracetam 500 Mg Tab) 500 mg PO BID [facility] Stop: 12/02/20 08:59 Last Admin: 11/05/20 11:03 Dose: 500 mg Documented by: Levofloxacin (Levofloxacin 500 Mg Tab) 500 mg PO QAM [facility] Stop: 12/02/20 08:59 Last Admin: 11/05/20 11:02 Dose: 500 mg Documented by: Loratadine (Loratadine 10 Mg Tab) 10 mg PO DAILY@1900 [facility] Stop: 12/02/20 18:59 Last Admin: 11/04/20 18:25 Dose: 10 mg Documented by: Lorazepam (Lorazepam 0.5 Mg Tab) 0.5 mg PO Q4H PRN PRN Reason: Nausea Stop: 12/02/20 03:40 Melatonin (Melatonin 3 Mg Tab) 9 mg PO HS [facility] Stop: 12/02/20 20:59 Last Admin: 11/04/20 20:36 Dose: 9 mg Documented by: Miscellaneous Information (Cefepime Consult Active) 1 ea N/A UD PRN PRN Reason: Consult Stop: 12/02/20 04:23 Nitroglycerin (Nitroglycerin Sl 0.4 Mg/Tab Tab) 0.4 mg SL UD PRN PRN Reason: Chest Pain Stop: 12/02/20 03:40 Ondansetron HCl (Ondansetron Inj 2 Mg/Ml 2 Ml Vial) 4 mg IV Q6H PRN PRN Reason: Nausea Stop: 12/02/20 03:40 Last Admin: 11/05/20 08:30 Dose: 4 mg Documented by: Ondansetron HCl (Ondansetron 4 Mg Od Tab) 4 mg PO Q6H PRN PRN Reason: Nausea And Vomiting Stop: 12/02/20 04:27 Oxycodone HCl (Oxycodone Hcl Ir 5 Mg Tab (Immediate Release)) 5 mg PO Q6H PRN PRN Reason: PAIN-MODERATE/SEVERE Stop: 11/16/20 04:06 Last Admin: 11/04/20 20:45 Dose: 5 mg Documented by: Polyethylene Glycol (Polyethylene (Miralax) 17 Gm Pack) 17 gm PO DAILY PRN PRN Reason: Constipation Stop: 12/02/20 03:40 Potassium Chloride (Potassium Chloride Pwd 20 Meq Pack) 20 meq PO QID [facility] Stop: 12/05/20 08:59 Last Admin: 11/05/20 11:03 Dose: Not Given Documented by: Prochlorperazine (Prochlorperazine Maleate 10 Mg Tab) 10 mg PO Q6H PRN PRN Reason: Nausea Stop: 12/02/20 03:40 Last Admin: 11/04/20 08:36 Dose: 10 mg Documented by: Pyridoxine HCl (Pyridoxine Hcl 50 Mg Tab) 100 mg PO QAM [facility] Stop: 12/02/20 08:59 Last Admin: 11/05/20 11:02 Dose: 100 mg Documented by: Sennosides (Senna 8.6 Mg Tab) 8.6 mg PO DAILY PRN PRN Reason: Constipation Stop: 12/02/20 03:40 Last Admin: 11/02/20 16:51 Dose: 8.6 mg Documented by: Trimethoprim/Sulfamethoxazole (Sulfa/Trimeth 400/80mg Tab) 1 tab PO MoWeFr@0900 [facility] Stop: 12/02/20 08:59 Last Admin: 11/05/20 11:03 Dose: 1 tab Documented by: (1) Sepsis Sepsis acute organ dysfunction status: without acute organ dysfunction Sepsis type: sepsis due to unspecified organism Qualified Code(s): A41.9 - Sepsis, unspecified organism
--- NOTE | 2020-11-05 18:21 | Discharge Summary ---
Date of Service November 05, 2020 Admission HPI Per Admitting Provider DICTATED BY: Max Islas MD DATE OF ADMISSION: 11/02/2020 CHIEF COMPLAINT: Febrile neutropenia. HISTORY OF PRESENT ILLNESS: This is a 60-year-old male with past medical history significant for stage IV diffuse large B-cell lymphoma, atherosclerosis of aorta, hyperlipidemia, history of alcoholism, and cachexia, who presents with febrile neutropenia. The patient was diagnosed with stage IV diffuse large B-cell lymphoma, germinal center B-cell subtype, currently under treatment at [facility]. Initially, he was treated on methotrexate plus DA-EPOCH-R. Since this has progression, now he is receiving combination of rituximab plus etoposide and DEIRDRE-C. As per the hematology/oncology, he initially complained of confusion and headache in July 2020. At that time, CT of the brain was done on 08/07/2020 showing frontal lobe mass. MRI confirmed the finding of right frontal mass. PET scan revealed multifocal bony involvement plus peritoneal and retroperitoneal lymph nodes with FDG-avid right apical nodule and uptake in the right frontal lobe of the brain. On 09/09/2020, he was started on alternating high dose of methotrexate with DA-EPOCH-R. Followup PET scan on 10/22/2020 showed mixed response, but overall progression in both brain and systematically and the patient currently started on salvage chemotherapy including combination of ritumaxab plus etoposide and received first cycle of chemo between 10/22/2020 and 10/27/2020 at [facility]. The patient says with chemo, he developed nausea and on way back home he developed syncope/seizure , and he went to [facility] and was started on Keppra and got discharged. Currently, he is also taking fluconazole, acyclovir, Bactrim, and Levaquin. He saw on 11/01/2020 locally hematology/oncology, Dr. Harris, to follow locally. He is supposed to get blood workup couple of times a week and he is on Neupogen. Advised to come to the ER for any fevers. The patient says he developed fevers at home today, it went up to 100.8, so he came to the hospital. He has some mucus in his throat, some dry cough. He is still nauseous. He had an episode of vomiting today. Appetite is down. No chest pain. Shortness of breath on exertion. Has some headache, no neck pain, no neck stiffness, no blurred visions, no earache. Has some runny nose he says from his mask. Has sore throat, he attributes this to ulcers from his chemo. No pain while swallowing. No dysphagia, no abdominal pain. Stools are loose, but no blood in the stools or black stools. Normal micturition. He has some macular rash in his abdomen, which he attributes to his Neupogen shots. No swelling in the legs. Ambulating without any support. Lives with his . Admission Exam Per Admitting Provider GENERAL: The patient is of moderate build, not in acute distress. VITAL SIGNS: Temperature T-max 37.7, pulse currently 91, respiratory rate 19, blood pressure 134/82, when he came in it was 99/59, oxygen 98% on room air. HEENT: Pupils equal, round, and reactive to light. Oral mucosa moist. NECK: No JVD, no neck masses seen. CARDIOVASCULAR: S1, S2 heard, regular rate and rhythm, no murmur, no gallop. RESPIRATORY SYSTEM: Normal AP diameter. No accessory muscle use. No wheezing, no crackles. ABDOMEN: Soft, bowel sounds present, nontender. No distention. CENTRAL NERVOUS SYSTEM: Cranial nerves II-XII are grossly intact. Nonfocal. EXTREMITIES: No edema, no erythema. SKIN: Macular rash in the abdominal region. 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 and TAG WRITER disease, mild fever without any source of infection, mild dysphagia Discharge Exam Constitutional well developed and well nourished; not ill appearing Eyes PERRL, conjunctivae normal, anicteric sclerae ENMT external ear and nose normal, oropharynx normal Neck trachea midline, no thyromegaly Respiratory no respiratory distress Auscultation: lungs clear to auscultation bilaterally Cardiovascular Rate/Rhythm: regular rate and regular rhythm Heart Sounds: no murmur Extremities: no edema Gastrointestinal (Abdomen) Inspection/Auscultation: normal bowel sounds; abdomen not distended Percussion/Palpation: abdomen soft; abdomen nontender Skin no rashes (Papular petechial rash involving the left lower abdomen) Psychiatric A+Ox3, euthymic affect Lymphatic no cervical or axillary lymphadenopathy Discharge Data Allergies Allergy/AdvReac Type Severity Reaction Status Date / Time No Known Allergies Allergy Verified 11/01/20 21:25 Consultations 11/02/20 00:08 ED Decision to Admit Stat 11/02/20 03:41 Consult Case Management - Discharge Planning Routine Ordered Studies 11/01/20 22:51 CT head/brain wo con Urgent Hospital Course (1) Pancytopenia: History of 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 and TAG WRITER disease Has had disease progression on methotrexate plus DAEPO CHR under care at [facility] Currently receiving combination of rituximab plus etoposide and ARAC-first dose received around October 22 Was seen in the clinic with pancytopenia and was sent in to ER for transfusion Noted to have white count of 0.04, hemoglobin 5.9 and platelet 16 on admission The admitting doctor did talk to the on-call pharmaceutical engineer/oncologist and was advised for transfusions Received 1 unit of blood and 1 unit of platelet yesterday and the hemoglobin remained at 6.2 today Will give 2 units of packed red cell and 1 unit of platelet again today We will continue Neupogen for now He received 3 units of packed cells so far and 2 units of platelet pheresis His blood counts as of today are white count 0.12, hemoglobin 7.9 and platelet 17 We will repeat the blood counts tomorrow and possible discharge tomorrow if counts remain acceptable His blood tests are better today with a.m. white count 0.18, hemoglobin 7.9 and platelet 16. Barium swallow cannot be done today due to the room being down Discussed with Dr. Harris, the local oncologist and was advised that the patient go home and will have her the plan blood test as scheduled Maculopapular rash Left lower abdomen Likely secondary to thrombocytopenia The rash is almost gone Having diarrhea Likely secondary to chemotherapy and/or intravenous antibiotic Doubt any infection We will check C. difficile toxin-negative Complaining of dysphagia Likely secondary to chemotherapy Appreciate speech evaluation and recommendation Will have barium swallow to rule out any significant pathology Barium swallow cannot be done in the hospital and that will be scheduled as an outpatient (2) Diffuse large B-cell lymphoma: History of 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 and TAG WRITER disease Has had disease progression on methotrexate plus DAEPO CHR under care at [facility] Currently receiving combination of rituximab plus etoposide and ARAC-first dose received around October 22 We will discuss with local pharmaceutical engineer/oncologist-discussed with local oncologist and the patient wants that that should be discussed with the oncologist at [facility] Message left at Dr. Moore's office (3) Neutropenic fever: Mild temperature Has been started on intravenous cefepime We will continue his home medications including acyclovir, Diflucan , Levaquin and sulfa Await blood and urine cultures-cultures have been negative We will likely stop antibiotic on discharge No fever and/or chills and the blood cultures have been negative We will discontinue cefepime (4) Sepsis: Suspected sepsis secondary to neutropenic fever No evidence of pneumonia and/or UTI on presentation Awaiting cultures-have been negative We will discontinue antibiotic tomorrow DVT prophylaxis SCDs due to severe thrombocytopenia CODE STATUS Full Total Time Total Time Spent Total Time Spent (In Minutes): 40 minutes Total Time Includes: Examination of the Patient, Discharge Planning, Medication Reconciliation and Communication With Other Providers Discharge Plan Discharge Items Patient Disposition: Home - Home Health Services Reason For Visit: FEVER Discharge Diagnosis: Pancytopenia secondary to chemotherapy, 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 and TAG WRITER disease, mild fever without any source of infection, mild dysphagia Condition on Discharge: Fair Activity: Resume your previous activity Non-emergency contact: Primary Care Provider Call non-emergency contact if: you have any medication questions and your symptoms worsen Follow-up/Referrals: Baldemar Chan MD [Primary Care Provider] - (Date & Time 11/09/2020 3:20 PM Provider Davy Dominguez MD Department Family [facility] ) Diet: Regular Addtl Attending Provider Instructions: Please take precaution to avoid falls Try to take food as tolerated and small amount at one time Please have your blood checked as advised by your oncologist Please have a barium swallow done through your PCP if your swallowing problem persist Pending Studies at Discharge: No Stand-Alone Forms: My [employer], Smoking Cessation Medications and DC Order Prescriptions: New potassium chloride 20 mEq Packet 20 meq PO TID Qty: 100 RF: 0 Continued atorvastatin 20 mg tablet 20 mg PO QPM RF: 0 sulfamethoxazole-trimethoprim 400-80 mg tablet 1 tab PO 3XWK RF: 0 levetiracetam 500 mg tablet 500 mg PO BID RF: 0 fluconazole 200 mg tablet 400 mg PO QAM RF: 0 acyclovir 800 mg tablet 800 mg PO BID RF: 0 lorazepam 0.5 mg tablet 0.5 mg PO Q4H PRN (Reason: Nausea) RF: 0 baclofen 10 mg tablet 10 mg PO DIRECTED PRN (Reason: Hiccups) RF: 0 diphenhydramine HCl 25 mg Tablet 25 mg PO HS RF: 0 Lidocaine Viscous 2 % solution See Rx Instructions .ROUTE .COMPLEX RF: 0 folic acid 1 mg tablet 1 mg PO QAM RF: 0 pyridoxine (vitamin B6) [Vitamin B-6] 100 mg Tablet 100 mg PO QAM RF: 0 levofloxacin 500 mg tablet 500 mg PO QAM RF: 0 ondansetron 4 mg tablet,disintegrating 4 mg PO DIRECTED PRN (Reason: Nausea) RF: 0 oxycodone 5 mg tablet 5 mg PO Q6H PRN (Reason: PAIN-MODERATE/SEVERE) RF: 0 cyclobenzaprine 5 mg tablet 5 mg PO DIRECTED PRN (Reason: Muscle Spasm) RF: 0 sennosides [senna] 8.6 mg Tablet 8.6 mg PO DIRECTED PRN (Reason: Constipation) RF: 0 prochlorperazine maleate 10 mg Tablet 10 mg PO DIRECTED PRN (Reason: Nausea) RF: 0 polyethylene glycol 3350 17 gram/dose Powder 17 g PO DAILY PRN (Reason: Constipation) RF: 0 Mucinex DM 30-600 mg Tablet Extended Release 12 Hr 2 tab PO Q12H RF: 0 loratadine [Claritin] 10 mg Tablet 10 mg PO DIRECTED RF: 0 melatonin 10 mg Tablet 10 mg PO HS RF: 0 Zarxio 480 mcg/0.8 mL Syringe 480 mcg SUBCUT DAILY@1900 RF: 0 Discharge Orders: Discharge Order (Routine); Ordered 11/05/20 Ordered By: Kirt Gong Admission Data Admit Date/Time: 11/02/20 00:09 Attending Provider: Kirt Gong Admit Provider: Max Islas Primary Care Provider: Baldemar Chan Other Providers: Max Islas ; [place] Other Interventions: Discharge Summary Assessment (RN) Last Done: 11/05/20 13:53
== END 2020-11-05 15:00 | disposition home health service (06) | DRG 871 ==
LOC: ED 19:40 → 2W 11-02 00:09

== ENCOUNTER 2020-12-23 11:16 | Inpatient (IN) ==
[2020-12-23] MEDS ORDERED: SODIUM CHLORIDE 0.9% 1000ML 1,000 ML IV SCH (11:45)
[2020-12-23 12:21] LABS: Hematocrit (blood only) 26.8 % (42-52); Hemoglobin 9.5 g/dL (14.0-18.0); Mean Corpuscular Hemoglobin 35.3 pg (25-34); Mean Corpuscular Hgb Conc 35.4 g/dL (32-36); Mean Corpuscular Volume 99.6 fL (80-100); Nucleated RBC # (auto) 0.02 K/uL (0-0); Nucleated RBC % (auto) 0.3 %; Red Blood Count 2.69 M/uL (4.7-6.1); White Blood Count 4.57 K/uL (4.8-10.8)
--- NOTE | 2020-12-23 12:33 | XRay Report ---
XR chest 1V portable CLINICAL HISTORY: SEPSIS COMPARISON STUDY: Chest radiograph November 01, 2020. FINDINGS: Right-sided Huzaod-j-Wlua is in place. Lung volumes are mildly diminished. There is no pneu mothorax or pleural effusion. There is mild left basilar opacity. There is no evidence for pulmonary edema. Cardiomediastinal silhouette is stable. IMPRESSION: Mild left basilar opacity. Atelectasis is favored although an infectious process could a ppear similar. ACT 112: Negative or not required by law. Electronically signed by: Juan Alberto Alfaro M.D. 12/23/2020 12:32 PM
[2020-12-23 12:34] LABS: Partial Thromboplastin Time 26.4 Seconds (21.0-31.0); Prothrombin Time 10.1 Seconds (9.0-12.0)
[2020-12-23 12:39] LABS: Alanine Aminotransferase 53 U/L (12-78); Albumin Level 2.8 gm/dl (3.4-5.0); Aspartate Aminotransferase 15 U/L (15-37); BUN Creatinine Ratio 22.4 (10-20); Blood Urea Nitrogen 15 mg/dl (7-18); Calcium 8.1 mg/dl (8.5-10.1); Carbon Dioxide 26 mmol/L (21-32); Chloride 103 mmol/L (98-107); Creatinine Clr Calc Pharmacy 131.9 ml/min; Est GFR (African American) 122.8; Est GFR (Non-African American) 105.9; Glucose 117 mg/dl (70-99); Magnesium 2.3 mg/dl (1.8-2.4); Potassium 3.6 mmol/L (3.5-5.1); Sodium 135 mmol/L (136-145)
[2020-12-23 12:44] LABS: Alkaline Phosphatase 60 U/L (45-117); Bilirubin,Total 0.5 mg/dl (0.2-1); Globulin 2.8 gm/dl (2.5-4.0); Total Protein 5.6 gm/dl (6.4-8.2); Troponin I < 0.015 ng/ml (0-0.045)
[2020-12-23 12:47] LABS: Influenza A virus by PCR Negative (Neg); Influenza B virus by PCR Negative (Neg); RSV by PCR Negative (Neg); SARS CoV2 RNA(COVID-19) InHosp NEGATIVE (Negative)
[2020-12-23 12:50] LABS: Immature Granulocytes # (auto) 0.01 K/uL (0.00-0.02); Immature Granulocytes % (auto) 0.2 %; Lymphocytes % (auto) 26.3 %; Mean Platelet Volume 9.3 fL (7.4-10.4); Monocytes # (auto) 0.19 K/uL (0.11-0.59); Monocytes % (auto) 4.2 %; Neutrophils # (auto) 3.17 K/uL (1.4-6.5); Neutrophils % (auto) 69.3 %; Platelet Count 94 K/uL (130-400); Platelet Estimate Decreased (Normal)
[2020-12-23] MEDS ORDERED: OPTIRAY 320 100ml IV ONE (13:35)
--- NOTE | 2020-12-23 14:02 | CT Scan Report ---
CT OF THE HEAD WITHOUT CONTRAST CLINICAL HISTORY: Weakness. History of brain tumor. COMPARISON STUDY: Head CT November 01, 2020. TECHNIQUE: Helical axial images of the head were obtained without IV contrast. Automated exposure con trol was utilized for the study. A dose lowering technique was utilized adhering to the principles o f ALARA. FINDINGS: No acute intracranial hemorrhage, midline shift or mass effect is present. Ventricular syst em is mild increased in size since exam of November 01, 2020 however overall remains normal in size. Basal cisterns are patent. Frontal craniotomy is noted. Right frontal hyperdense focus, within the op erative bed, measuring approximately 2.9 x 1.6 cm has slightly decreased in size since exam of 2020 when it measured 3.1 x 1.7 cm. There is adjacent hypodensity within the right frontal lob e. This is probably extra-axial although an intra-axial component cannot be excluded by CT. The addit ional extraaxial densities on prior exam have also improved. No new extra-axial lesions are present. There are no findings to suggest acute dural sinus thrombosis or acute territorial infarct. IMPRESSION: 1. No acute intracranial hemorrhage. 2. Status post post frontal craniotomy. Mild decrease in size of the previously described 2.9 x 1.6 c m hyperdense focus within the right frontal operative bed with adjacent edema. This favors residual t umor. Additional extra axial lesions shown on prior exam have also improved. 3. Mild increase in ventricular size is prior exam. However, ventricles remain normal in size. Short- term imaging follow-up is recommended. ACT 112: Negative or not required by law. Electronically signed by: Juan Alberto Alfaro M.D. 12/23/2020 2:00 PM
--- NOTE | 2020-12-23 14:18 | CT Scan Report ---
CT OF THE ABDOMEN AND PELVIS WITH CONTRAST CLINICAL HISTORY: Weakness. Hypotension. COMPARISON STUDY: None. TECHNIQUE: Following IV administration of 89 mL of Optiray-320, axial images of the abdomen and pelvi s were obtained from the lung bases to the proximal femurs. Images were reviewed in the axial, sagitt al, and coronal planes. IV contrast was administered without complication. Automated exposure contro l was utilized for the study. A dose lowering technique was utilized adhering to the principles of A DAVID. CT DOSE: 1339.39 mGy.cm FINDINGS: Imaged portions of the lower chest demonstrate left lower lobe and lingular opacity. There is minimal right lower lung opacity consistent with atelectasis. A trace left pleural effusion is not ed. Equivocal pulmonary emboli within the left lower lobe are noted. These may be artifactual. Multip le indeterminate intermediate attenuation hepatic lesions are noted, including a 2.8 cm lateral segme nt lesion on image 72 of 501, a 2 cm caudate lobe lesion and a 1.9 cm medial segment lesion as well a s a 2.7 cm inferior right hepatic lobe lesion. There is no biliary or pancreatic ductal dilatation. B orderline splenomegaly is noted. The adrenal glands, kidneys and pancreas are unremarkable. There is no peripancreatic infiltration. No abdominal or pelvic lymphadenopathy is noted. Bladder is mildly di stended. No hydronephrosis. The sigmoid colon is mildly distended and redundant. There is no transiti on point to suggest a bowel obstruction. Moderate amount of stool within the colon and rectum is note d. The appendix is normal. Apparent wall thickening of the hepatic flexure of the colon is likely due to underdistention. Note is made of an indeterminate nodule along the right anterior aspect the blad shantel that measures 2 cm. IMPRESSION: 1. Redundant and mildly distended sigmoid colon without transition point to suggest a bowel obstructi on. Moderate amount stool within the colon and rectum. Apparent wall thickening of the right colon is likely due to underdistention although a nonspecific colitis could appear similar. Normal appendix. 2. Apparent filling defects within left lower lobe pulmonary arteries. Artifact is favored however pu lmonary emboli cannot be excluded. CTA of the chest is recommended. 3. Trace left pleural effusion. Lingular and subpleural left lower lobe opacities which could reflect an infectious process or atelectasis. 4. Multiple indeterminate hepatic lesions. Comparison with prior imaging studies, if available, is re commended. In the absence of prior studies, nonemergent liver protocol MRI is recommended. 5. Indeterminate 2 cm nodule anterior to the bladder. Comparison to prior imaging studies, if availab le, is recommended. ACT 112: Negative or not required by law. Electronically signed by: Juan Alberto Alfaro M.D. 12/23/2020 2:17 PM
[2020-12-23] MEDS ORDERED: OPTIRAY 320 125ml IV ONE ×2 (14:37→14:40)
[2020-12-23 14:50] LABS: Appearance Urine Clear (Clear); Bilirubin Urine Negative (Negative); Blood Urine Negative (Negative); Color Urine Yellow; Glucose Urine UA Negative (Negative); Ketones Urine Negative (Negative); Leukocyte Esterase Urine Negative (Negative); Nitrite Urine Negative (Negative); Protein Urine Negative (Negative); Specific Gravity Urine 1.024 (1.000-1.030); Urobilinogen Urine Negative (Negative); pH Urine 7.5 (4.5-7.5)
--- NOTE | 2020-12-23 15:12 | CT Scan Report ---
CT ANGIOGRAPHY OF THE CHEST, PULMONARY EMBOLUS PROTOCOL CLINICAL HISTORY: Possible pulmonary emboli. COMPARISON STUDY: Chest radiograph and CT of the abdomen and pelvis performed earlier today. TECHNIQUE: Following IV administration of 73 mL of Optiray-320, helical axial images of the chest wer e obtained utilizing the pulmonary embolus protocol. Maximal intensity projections and sagittal and coronal reformats were viewed on an independent 3D workstation. IV contrast was administered without complication. Automated exposure control was utilized for the study. A dose lowering technique was utilized adhering to the principles of ALARA. CT DOSE: 367.93 mGy.cm FINDINGS: A right internal jugular [id number]-y-Pvvr is in place. Note is made of multiple segmental and subsegmental pulmonary within the left lower lobe which correspond to the finding on prior abdominal CT. Subsegmental pulmonary embolus within the right lower lobe is noted. There is no central pulmona ry embolus. The heart is mildly enlarged. There is moderate coronary artery calcification. Trace left pleural effusion is noted. Note is made of moderate left lower lobe opacity. There is mild lingular opacity. Central airways are patent. There is an indeterminate 1.3 cm nodular opacity within the righ t upper lobe on image 184. This is associated with a bronchus. No enlarged axillary, mediastinal or h ilar lymph nodes are present. Several indeterminate hepatic lesions are better depicted on the abdomi nal CT which was performed earlier today. IMPRESSION: 1. Multiple left lower lobe segmental and subsegmental pulmonary emboli which correspond to the findi ng on abdominal CT. Therefore, left lower lobe opacity may reflect a pulmonary infarct. Pneumonia cou ld appear similar. 2. Indeterminate 1.3 cm hypodense nodular opacity within the right upper lobe. Follow-up chest CT in 3 months is recommended. ACT 112: Negative or not required by law. Electronically signed by: Juan Alberto Alfaro M.D. 12/23/2020 3:10 PM
[2020-12-23] MEDS ORDERED: Heparin IV Adult Wt-Based Standard WITH Bolus Protocol IV STA (15:15)
--- NOTE | 2020-12-23 15:26 | Emergency Department Note ---
History of Present Illness General Chief complaint: Hypotension Stated complaint: LOW BLOOD PRESSURE/DIZZY/HAS CANCER Time Seen by Provider: 12/23/20 11:30 History of Present Illness Provider complaint: Weakness Onset (ago): week(s) 1 Associated symptoms: + fever/chills and + weakness; no chest pain, no cough, no headaches, no nausea/vomiting and no shortness of breath 60-year-old male with history of B cell lymphoma presents emergency department for weakness. Patient states over the last week he has been feeling increasingly weak. He reports he has been feeling dizzy. He reports his blood pressures have been running low. Patient has brought in multiple blood pressure recordings over the last week which show low blood pressures. Patient also reports a subjective fever for the last week. No chest pain difficulty breathing hematuria dysuria melena or hematochezia. No hemoptysis. Patient has received both of his COVID-19 vaccinations. Home Medications Medication Instructions Recorded Confirmed Type Mucinex DM 2 tab PO Q12H 11/01/20 12/23/20 History acyclovir 800 mg PO BID 11/01/20 12/23/20 History atorvastatin 20 mg PO QPM 11/01/20 12/23/20 History baclofen 10 mg PO DIRECTED PRN 11/01/20 12/23/20 History cyclobenzaprine 5 mg PO DIRECTED PRN 11/01/20 12/23/20 History diphenhydramine HCl 25 mg PO HS 11/01/20 12/23/20 History levetiracetam 500 mg PO BID 11/01/20 12/23/20 History lorazepam 0.5 mg PO Q4H PRN 11/01/20 12/23/20 History melatonin 10 mg PO HS 11/01/20 12/23/20 History ondansetron 4 mg PO DIRECTED PRN 11/01/20 12/23/20 History oxycodone 5 mg PO Q6H PRN 11/01/20 12/23/20 History polyethylene glycol 3350 17 g PO DAILY PRN 11/01/20 12/23/20 History prochlorperazine maleate 10 mg PO DIRECTED PRN 11/01/20 12/23/20 History sennosides [senna] 8.6 mg PO DIRECTED PRN 11/01/20 12/23/20 History sulfamethoxazole-trimethoprim 1 tab PO 3XWK 11/01/20 12/23/20 History dexamethasone 1 mg PO QAM 12/23/20 12/23/20 History pantoprazole 40 mg PO BID 12/23/20 12/23/20 History selinexor [Xpovio] 60 mg PO 2XWK 12/23/20 12/23/20 History sucralfate 1 g PO QID 12/23/20 12/23/20 History trazodone 50 mg PO HS 12/23/20 12/23/20 History Allergies Allergy/AdvReac Type Severity Reaction Status Date / Time No Known Allergies Allergy Verified 12/23/20 12:20 Past Med/Surg History Medical History (Updated 12/23/20 @ 17:09 by Angel Mahoney) Brain cancer Diffuse large B-cell lymphoma Leukemia No pertinent family history Pancytopenia Surgical History (Updated 12/23/20 @ 15:28 by Angel Mahoney) H/O craniotomy Social History Smoking Status: Never smoker Tobacco Type: Cigarettes Hx Alcohol Use: Yes Preferred Language: [place] Communication Ability: Effective Building Performance Specialist Required: No Beliefs That Will Affect Care: None marital status: Current Living Situation: Spouse Feels Safe at Home: Yes Assistive Devices: Glasses Review of Systems A total of 10 systems reviewed and were otherwise negative Physical Exam Vital Signs Vital Signs - 24 hr 12/23/20 11:20 12/23/20 11:33 12/23/20 11:35 Temperature 36.5 C Temperature Source Skin Pulse Rate 89 81 79 Pulse Rate [Apical] Pulse Rate from SpO2 Sensor Respiratory Rate 18 17 21 Respiratory Effort / Characteristics Non-Labored Spontaneous Respiratory Depth Normal Respiratory Pattern Blood Pressure 99/71 L 111/75 Blood Pressure [Right Arm] Blood Pressure Mean 80 87 Blood Pressure Mean [Right Arm] Blood Pressure Position Sitting Pulse Oximetry 100 Oxygen Delivery Method Room Air Sepsis Recent Fever Within 48 Hours No Sepsis New/Unexplained Change in Mental Status N/A Sepsis Action Taken by Nursing No Action Required 12/23/20 11:51 12/23/20 11:52 12/23/20 12:00 Temperature Temperature Source Pulse Rate 74 76 Pulse Rate [Apical] 75 Pulse Rate from SpO2 Sensor 77 Respiratory Rate 20 20 18 Respiratory Effort / Characteristics Non-Labored Spontaneous Respiratory Depth Normal Respiratory Pattern Regular Blood Pressure 95/64 L Blood Pressure [Right Arm] 111/75 Blood Pressure Mean 74 Blood Pressure Mean [Right Arm] 87 Blood Pressure Position Pulse Oximetry 98 98 97 Oxygen Delivery Method Room Air Room Air Sepsis Recent Fever Within 48 Hours Sepsis New/Unexplained Change in Mental Status Sepsis Action Taken by Nursing 12/23/20 12:01 12/23/20 12:30 12/23/20 12:31 Temperature Temperature Source Pulse Rate 74 64 64 Pulse Rate [Apical] Pulse Rate from SpO2 Sensor 75 64 64 Respiratory Rate 20 14 13 Respiratory Effort / Characteristics Respiratory Depth Respiratory Pattern Blood Pressure 90/65 L Blood Pressure [Right Arm] Blood Pressure Mean 73 Blood Pressure Mean [Right Arm] Blood Pressure Position Pulse Oximetry 98 98 97 Oxygen Delivery Method Sepsis Recent Fever Within 48 Hours Sepsis New/Unexplained Change in Mental Status Sepsis Action Taken by Nursing 12/23/20 13:00 12/23/20 13:01 12/23/20 13:56 Temperature Temperature Source Pulse Rate 66 72 70 Pulse Rate [Apical] Pulse Rate from SpO2 Sensor 67 70 Respiratory Rate 18 19 22 Respiratory Effort / Characteristics Respiratory Depth Respiratory Pattern Blood Pressure 95/66 L Blood Pressure [Right Arm] Blood Pressure Mean 75 Blood Pressure Mean [Right Arm] Blood Pressure Position Pulse Oximetry 98 97 Oxygen Delivery Method Sepsis Recent Fever Within 48 Hours Sepsis New/Unexplained Change in Mental Status Sepsis Action Taken by Nursing 12/23/20 13:57 12/23/20 14:00 12/23/20 14:01 Temperature Temperature Source Pulse Rate 68 66 66 Pulse Rate [Apical] Pulse Rate from SpO2 Sensor 68 66 66 Respiratory Rate 22 19 20 Respiratory Effort / Characteristics Respiratory Depth Respiratory Pattern Blood Pressure 110/73 103/74 Blood Pressure [Right Arm] Blood Pressure Mean 85 83 Blood Pressure Mean [Right Arm] Blood Pressure Position Pulse Oximetry 99 99 98 Oxygen Delivery Method Sepsis Recent Fever Within 48 Hours Sepsis New/Unexplained Change in Mental Status Sepsis Action Taken by Nursing 12/23/20 14:30 12/23/20 14:31 12/23/20 15:00 Temperature Temperature Source Pulse Rate 83 75 66 Pulse Rate [Apical] Pulse Rate from SpO2 Sensor 76 66 Respiratory Rate 22 20 17 Respiratory Effort / Characteristics Respiratory Depth Respiratory Pattern Blood Pressure 118/80 102/75 Blood Pressure [Right Arm] Blood Pressure Mean 92 84 Blood Pressure Mean [Right Arm] Blood Pressure Position Pulse Oximetry 98 99 Oxygen Delivery Method Sepsis Recent Fever Within 48 Hours Sepsis New/Unexplained Change in Mental Status Sepsis Action Taken by Nursing 12/23/20 15:01 12/23/20 15:30 12/23/20 15:31 Temperature Temperature Source Pulse Rate 70 74 73 Pulse Rate [Apical] Pulse Rate from SpO2 Sensor 70 75 73 Respiratory Rate 17 20 19 Respiratory Effort / Characteristics Respiratory Depth Respiratory Pattern Blood Pressure 95/74 L Blood Pressure [Right Arm] Blood Pressure Mean 81 Blood Pressure Mean [Right Arm] Blood Pressure Position Pulse Oximetry 98 98 98 Oxygen Delivery Method Sepsis Recent Fever Within 48 Hours Sepsis New/Unexplained Change in Mental Status Sepsis Action Taken by Nursing 12/23/20 16:00 12/23/20 16:01 Temperature Temperature Source Pulse Rate 75 77 Pulse Rate [Apical] Pulse Rate from SpO2 Sensor 75 76 Respiratory Rate 22 22 Respiratory Effort / Characteristics Respiratory Depth Respiratory Pattern Blood Pressure 107/79 Blood Pressure [Right Arm] Blood Pressure Mean 88 Blood Pressure Mean [Right Arm] Blood Pressure Position Pulse Oximetry 99 99 Oxygen Delivery Method Sepsis Recent Fever Within 48 Hours Sepsis New/Unexplained Change in Mental Status Sepsis Action Taken by Nursing Physical Exam GENERAL: He is oriented to person, place, and time. He appears well-developed and well-nourished. He does not appear distressed. HENT: Exam performed. - Head: Normocephalic and atraumatic. - Right Ear: External ear normal. No mastoid tenderness. - Left Ear: External ear normal. No mastoid tenderness. - Mouth/Throat: The oropharynx is clear and moist. No trismus in the jaw. No dental abscesses or uvula swelling. No oropharyngeal exudate or tonsillar abscesses. EYES: Conjunctivae and EOM are normal. Pupils are equal, round, and reactive to light. Right eye exhibits no discharge. Left eye exhibits no discharge. No scleral icterus. NECK: Normal range of motion. Neck supple. No JVD present. No spinous process tenderness present. No carotid bruit present. No rigidity. No tracheal deviation and normal range of motion present. No Brudzinski's sign and no Kernig's sign noted. CV: Normal rate, regular rhythm, normal heart sounds and intact distal pulses. There is no peripheral edema. Palpable radial pulses bue. PULM/CHEST: Effort normal and breath sounds normal. No respiratory distress. No stridor. He has no wheezes. He has no rales. - Chest Wall: He exhibits no tenderness. ABD: The abdomen is soft. Bowel sounds are normal. He has no distension. No mass is present. There is no tenderness. There is no rebound, no guarding, no Virgie y's sign and no tenderness at McBurney's point. Rovsig negative. MUSC/SKEL: Normal range of motion. There is no peripheral edema, tenderness or deformity. LYMPH: No cervical adenopathy. NEURO: He is alert and oriented to person, place, and time. He has normal strength. No cranial nerve deficit or sensory deficit. Coordination and gait normal. GCS eye subscore is 4. GCS verbal subscore is 5. GCS motor subscore is 6. Cerebellar tests wnl. SKIN: Skin is warm and dry. He is not diaphoretic. PSYCH: He has a normal mood and affect. Behavior is normal. Judgment and thought content normal. Course Course 1130: The patient was evaluated in room B10. A complete history and physical exam was performed Cardiac monitoring: An order was placed for continuous cardiac monitoring. The monitor shows a rate of 70 with sinus rhythm 1430: Vital signs stable. Labs show white blood cell count 4.57. Hemoglobin 9.5. Platelet count 94. Troponin procalcitonin negative. Influenza and Covid negative. CT of the head shows no acute intracranial hemorrhage and does show a previous craniotomy with residual tumor that the patient does know about. CT of the abdomen labs are within normal limits shows no transition point to suggest a bowel obstruction. There is a moderate amount of stool in the colon and rectum. Appendix is normal. Incidental finding on CT of the abdomen which does show possible filling defect in the left lower lobe of the pulmonary arteries. Will conduct CTA of the chest. is at bedside now and states that the patient has been having painful bowel movements and she would like that to be addressed. 1534: Vital signs stable. CTA of the chest does show multiple left lower lobe segmental and subsegmental pulmonary emboli and there is a left lower lobe opacity which may represent a pulmonary infarct. [facility] will be started on [facility]. Administered Medications Heparin Sodium/Dextrose (Heparin Sodium/Dextrose) 25,000 units in 500 mls @ 29 mls/hr IV .[id number] [facility]; Protocol Stop: 01/22/21 15:14 Last Admin: 12/23/20 16:03 Dose: 1,450 units/hr, 29 mls/hr Documented by: [id number] Cosigned by: [id number] Discontinued Medications Heparin Sodium (Porcine) (Heparin Sod (Porcine) 1000 Unit/Ml 10 Ml Vial) 6,000 units IV NOW ONE Stop: 12/23/20 16:16 Last Admin: 12/23/20 16:05 Dose: 6,000 units Documented by: [id number] Cosigned by: [id number] Sodium Chloride (Nss 1000ml) 1,000 mls @ 999 mls/hr IV .Q1H1M NARESH Stop: 12/23/20 12:45 Last Infusion: 12/23/20 13:00 Dose: 0 mls/hr Documented by: [id number] Admin: 12/23/20 11:56 Dose: 999 mls/hr Documented by: [id number] Ioversol (Ioversol 100ml) 89 ml IV ONCE ONE Stop: 12/23/20 13:36 Last Admin: 12/23/20 13:35 Dose: 89 ml Documented by: [id number] Ioversol (Optiray 320 125ml) 119 ml IV ONCE ONE Stop: 12/23/20 14:38 Last Admin: 12/23/20 14:38 Dose: 119 ml Documented by: [id number] Ioversol (Optiray 320 125ml) 73 ml IV ONCE ONE Stop: 12/23/20 14:41 Last Admin: 12/23/20 14:41 Dose: 73 ml Documented by: [id number] Critical Care Time Critical Care Time: Yes Total Critical Care Time: 58 I have personally spent greater than 58 minutes of critical care time in the direct management of this patient. This includes bedside care, interpretation of diagnostic studies, and testing, discussion with consultants, patient, and family members, and other required patient management activities. This 58 minutes is in excess of all separately billable procedures. Medical Decision Making Laboratory Data Result diagrams: 12/23/20 11:47 12/23/20 11:47 Lab Results 12/23/20 12/23/20 12/23/20 Range/Units 11:47 11:47 11:47 WBC 4.57 L (4.8-10.8) K/uL RBC 2.69 L (4.7-6.1) M/uL Hgb 9.5 L (14.0-18.0) g/dL Hct 26.8 L (42-52) % MCV 99.6 (80-100) fL MCH 35.3 H (25-34) pg MCHC 35.4 (32-36) g/dL Plt Count 94 L (130-400) K/uL MPV 9.3 (7.4-10.4) fL Immature Gran % (Auto) 0.2 % Neut % (Auto) 69.3 % Lymph % (Auto) 26.3 % [place] % (Auto) 4.2 % Eos % (Auto) 0.0 % Baso % (Auto) 0.0 % Neut # (Auto) 3.17 (1.4-6.5) K/uL Lymph # (Auto) 1.20 (1.2-3.4) K/uL [place] # (Auto) 0.19 (0.11-0.59) K/uL Eos # (Auto) 0.00 (0-0.5) K/uL Baso # (Auto) 0.00 (0-0.2) K/uL Immature Gran # (Auto) 0.01 (0.00-0.02) K/uL Absolute Nucleated RBC 0.02 H (0-0) K/uL Nucleated RBC % (auto) 0.3 % Platelet Estimate Decreased L (Normal) PT 10.1 (9.0-12.0) Seconds INR 1.0 (0.9-1.1) APTT 26.4 (21.0-31.0) Seconds PTT Ratio 1.0 Sodium 135 L (136-145) mmol/L Potassium 3.6 (3.5-5.1) mmol/L Chloride 103 (98-107) mmol/L Carbon Dioxide 26 (21-32) mmol/L Anion Gap 6.0 (3-11) BUN 15 (7-18) mg/dl Creatinine 0.67 (0.6-1.4) mg/dl Est Cr Clr Drug Dosing 131.9 ml/min Est GFR ( Amer) 122.8 Est GFR (Non-Af Amer) 105.9 BUN/Creatinine Ratio 22.4 H (10-20) Glucose 117 H (70-99) mg/dl Lactate (0.4-2.0) mmol/L Calcium 8.1 L (8.5-10.1) mg/dl Magnesium 2.3 (1.8-2.4) mg/dl Total Bilirubin 0.5 (0.2-1) mg/dl AST 15 (15-37) U/L ALT 53 (12-78) U/L Alkaline Phosphatase 60 (45-117) U/L Troponin I < 0.015 (0-0.045) ng/ml Total Protein 5.6 L (6.4-8.2) gm/dl Albumin 2.8 L (3.4-5.0) gm/dl Globulin 2.8 (2.5-4.0) gm/dl Albumin/Globulin Ratio 1.0 (0.9-2) Procalcitonin (0-0.5) ng/ml Urine Color Urine Appearance (Clear) Urine pH (4.5-7.5) Ur Specific [place] (1.000-1.030) Urine Protein (Negative) Urine Glucose (UA) (Negative) Urine Ketones (Negative) Urine Blood (Negative) Urine Nitrite (Negative) Urine Bilirubin (Negative) Urine Urobilinogen (Negative) Ur Leukocyte Esterase (Negative) COVID-19 Eval Order SARS-CoV-2 (PCR) (Negative) Influenza Type A (PCR) (Neg) Influenza Type B (PCR) (Neg) RSV (RT-PCR) (Neg) 12/23/20 12/23/20 12/23/20 Range/Units 11:47 11:56 11:56 WBC (4.8-10.8) K/uL RBC (4.7-6.1) M/uL Hgb (14.0-18.0) g/dL Hct (42-52) % MCV (80-100) fL MCH (25-34) pg MCHC (32-36) g/dL Plt Count (130-400) K/uL MPV (7.4-10.4) fL Immature Gran % (Auto) % Neut % (Auto) % Lymph % (Auto) % [place] % (Auto) % Eos % (Auto) % Baso % (Auto) % Neut # (Auto) (1.4-6.5) K/uL Lymph # (Auto) (1.2-3.4) K/uL [place] # (Auto) (0.11-0.59) K/uL Eos # (Auto) (0-0.5) K/uL Baso # (Auto) (0-0.2) K/uL Immature Gran # (Auto) (0.00-0.02) K/uL Absolute Nucleated RBC (0-0) K/uL Nucleated RBC % (auto) % Platelet Estimate (Normal) PT (9.0-12.0) Seconds INR (0.9-1.1) APTT (21.0-31.0) Seconds PTT Ratio Sodium (136-145) mmol/L Potassium (3.5-5.1) mmol/L Chloride (98-107) mmol/L Carbon Dioxide (21-32) mmol/L Anion Gap (3-11) BUN (7-18) mg/dl Creatinine (0.6-1.4) mg/dl Est Cr Clr Drug Dosing ml/min Est GFR ( Amer) Est GFR (Non-Af Amer) BUN/Creatinine Ratio (10-20) Glucose (70-99) mg/dl Lactate (0.4-2.0) mmol/L Calcium (8.5-10.1) mg/dl Magnesium (1.8-2.4) mg/dl Total Bilirubin (0.2-1) mg/dl AST (15-37) U/L ALT (12-78) U/L Alkaline Phosphatase (45-117) U/L Troponin I (0-0.045) ng/ml Total Protein (6.4-8.2) gm/dl Albumin (3.4-5.0) gm/dl Globulin (2.5-4.0) gm/dl Albumin/Globulin Ratio (0.9-2) Procalcitonin < 0.05 (0-0.5) ng/ml Urine Color Urine Appearance (Clear) Urine pH (4.5-7.5) Ur Specific [place] (1.000-1.030) Urine Protein (Negative) Urine Glucose (UA) (Negative) Urine Ketones (Negative) Urine Blood (Negative) Urine Nitrite (Negative) Urine Bilirubin (Negative) Urine Urobilinogen (Negative) Ur Leukocyte Esterase (Negative) COVID-19 Eval Order [facility]FluRsv at [facility] SARS-CoV-2 (PCR) NEGATIVE (Negative) Influenza Type A (PCR) Negative (Neg) Influenza Type B (PCR) Negative (Neg) RSV (RT-PCR) Negative (Neg) 12/23/20 12/23/20 Range/Units 11:57 14:33 WBC (4.8-10.8) K/uL RBC (4.7-6.1) M/uL Hgb (14.0-18.0) g/dL Hct (42-52) % MCV (80-100) fL MCH (25-34) pg MCHC (32-36) g/dL Plt Count (130-400) K/uL MPV (7.4-10.4) fL Immature Gran % (Auto) % Neut % (Auto) % Lymph % (Auto) % [place] % (Auto) % Eos % (Auto) % Baso % (Auto) % Neut # (Auto) (1.4-6.5) K/uL Lymph # (Auto) (1.2-3.4) K/uL [place] # (Auto) (0.11-0.59) K/uL Eos # (Auto) (0-0.5) K/uL Baso # (Auto) (0-0.2) K/uL Immature Gran # (Auto) (0.00-0.02) K/uL Absolute Nucleated RBC (0-0) K/uL Nucleated RBC % (auto) % Platelet Estimate (Normal) PT (9.0-12.0) Seconds INR (0.9-1.1) APTT (21.0-31.0) Seconds PTT Ratio Sodium (136-145) mmol/L Potassium (3.5-5.1) mmol/L Chloride (98-107) mmol/L Carbon Dioxide (21-32) mmol/L Anion Gap (3-11) BUN (7-18) mg/dl Creatinine (0.6-1.4) mg/dl Est Cr Clr Drug Dosing ml/min Est GFR ( Amer) Est GFR (Non-Af Amer) BUN/Creatinine Ratio (10-20) Glucose (70-99) mg/dl Lactate 1.3 (0.4-2.0) mmol/L Calcium (8.5-10.1) mg/dl Magnesium (1.8-2.4) mg/dl Total Bilirubin (0.2-1) mg/dl AST (15-37) U/L ALT (12-78) U/L Alkaline Phosphatase (45-117) U/L Troponin I (0-0.045) ng/ml Total Protein (6.4-8.2) gm/dl Albumin (3.4-5.0) gm/dl Globulin (2.5-4.0) gm/dl Albumin/Globulin Ratio (0.9-2) Procalcitonin (0-0.5) ng/ml Urine Color Yellow Urine Appearance Clear (Clear) Urine pH 7.5 (4.5-7.5) Ur Specific [place] 1.024 (1.000-1.030) Urine Protein Negative (Negative) Urine Glucose (UA) Negative (Negative) Urine Ketones Negative (Negative) Urine Blood Negative (Negative) Urine Nitrite Negative (Negative) Urine Bilirubin Negative (Negative) Urine Urobilinogen Negative (Negative) Ur Leukocyte Esterase Negative (Negative) COVID-19 Eval Order SARS-CoV-2 (PCR) (Negative) Influenza Type A (PCR) (Neg) Influenza Type B (PCR) (Neg) RSV (RT-PCR) (Neg) Imaging Data Radiologist's Impression: Abdomen/Pelvis CT 12/23/20 11:37 CT OF THE ABDOMEN AND PELVIS WITH CONTRAST CLINICAL HISTORY: Weakness. Hypotension. COMPARISON STUDY: None. TECHNIQUE: Following IV administration of 89 mL of Optiray-320, axial images of the abdomen and pelvis were obtained from the lung bases to the proximal femurs. Images were reviewed in the axial, sagittal, and coronal planes. IV contrast was administered without complication. Automated exposure control was utilized for the study. A dose lowering technique was utilized adhering to the principles of ALARA. CT DOSE: 1339.39 mGy.cm FINDINGS: Imaged portions of the lower chest demonstrate left lower lobe and lingular opacity. There is minimal right lower lung opacity consistent with atelectasis. A trace left pleural effusion is noted. Equivocal pulmonary emboli within the left lower lobe are noted. These may be artifactual. Multiple indeterminate intermediate attenuation hepatic lesions are noted, including a 2.8 cm lateral segment lesion on image 72 of 501, a 2 cm caudate lobe lesion and a 1.9 cm medial segment lesion as well as a 2.7 cm inferior right hepatic lobe lesion. There is no biliary or pancreatic ductal dilatation. Borderline splenomegaly is noted. The adrenal glands, kidneys and pancreas are unremarkable. There is no peripancreatic infiltration. No abdominal or pelvic lymphadenopathy is noted. Bladder is mildly distended. No hydronephrosis. The sigmoid colon is mildly distended and redundant. There is no transition point to suggest a bowel obstruction. Moderate amount of stool within the colon and rectum is noted. The appendix is normal. Apparent wall thickening of the hepatic flexure of the colon is likely due to underdistention. Note is made of an indeterminate nodule along the right anterior aspect the bladder that measures 2 cm. IMPRESSION: 1. Redundant and mildly distended sigmoid colon without transition point to suggest a bowel obstruction. Moderate amount stool within the colon and rectum. Apparent wall thickening of the right colon is likely due to underdistention although a nonspecific colitis could appear similar. Normal appendix. 2. Apparent filling defects within left lower lobe pulmonary arteries. Artifact is favored however pulmonary emboli cannot be excluded. CTA of the chest is recommended. 3. Trace left pleural effusion. Lingular and subpleural left lower lobe opacities which could reflect an infectious process or atelectasis. 4. Multiple indeterminate hepatic lesions. Comparison with prior imaging st udies, if available, is recommended. In the absence of prior studies, nonemergent liver protocol MRI is recommended. 5. Indeterminate 2 cm nodule anterior to the bladder. Comparison to prior imaging studies, if available, is recommended. ACT 112: Negative or not required by law. Electronically signed by: Juan Alberto Alfaro M.D. 12/23/2020 2:17 PM Chest X-Ray 12/23/20 11:37 XR chest 1V portable CLINICAL HISTORY: SEPSIS COMPARISON STUDY: Chest radiograph November 01, 2020. FINDINGS: Right-sided [id number] is in place. Lung volumes are mildly diminished. There is no pneumothorax or pleural effusion. There is mild left basilar opacity. There is no evidence for pulmonary edema. Cardiomediastinal silhouette is stable. IMPRESSION: Mild left basilar opacity. Atelectasis is favored although an infectious process could appear similar. ACT 112: Negative or not required by law. Electronically signed by: Juan Alberto Alfaro M.D. 12/23/2020 12:[address] 12/23/20 11:37 CT OF THE HEAD WITHOUT CONTRAST CLINICAL HISTORY: Weakness. History of brain tumor. COMPARISON STUDY: Head CT November 01, 2020. TECHNIQUE: Helical axial images of the head were obtained without IV contrast. Automated exposure control was utilized for the study. A dose lowering technique was utilized adhering to the principles of ALARA. FINDINGS: No acute intracranial hemorrhage, midline shift or mass effect is present. Ventricular system is mild increased in size since exam of November 01, 2020 however overall remains normal in size. Basal cisterns are patent. Frontal craniotomy is noted. Right frontal hyperdense focus, within the operative bed, measuring approximately 2.9 x 1.6 cm has slightly decreased in size since exam of November 01, 2020 when it measured 3.1 x 1.7 cm. There is adjacent hypodensity within the right frontal lobe. This is probably extra-axial although an intra-axial component cannot be excluded by CT. The additional extraaxial densities on prior exam have also improved. No new extra-axial lesions are present. There are no findings to suggest acute dural sinus thrombosis or acute territorial infarct. IMPRESSION: 1. No acute intracranial hemorrhage. 2. Status post post frontal craniotomy. Mild decrease in size of the previously described 2.9 x 1.6 cm hyperdense focus within the right frontal operative bed with adjacent edema. This favors residual tumor. Additional extra axial lesions shown on prior exam have also improved. 3. Mild increase in ventricular size is prior exam. However, ventricles remain normal in size. Short-term imaging follow-up is recommended. ACT 112: Negative or not required by law. Electronically signed by: Juan Alberto Alfaro M.D. 12/23/2020 2:00 PM Chest CTA 12/23/20 14:23 CT ANGIOGRAPHY OF THE CHEST, PULMONARY EMBOLUS PROTOCOL CLINICAL HISTORY: Possible pulmonary emboli. COMPARISON STUDY: Chest radiograph and CT of the abdomen and pelvis performed earlier today. TECHNIQUE: Following IV administration of 73 mL of Optiray-320, helical axial images of the chest were obtained utilizing the pulmonary embolus protocol. Maximal intensity projections and sagittal and coronal reformats were viewed on an independent 3D workstation. IV contrast was administered without compl ication. Automated exposure control was utilized for the study. A dose lowering technique was utilized adhering to the principles of ALARA. CT DOSE: 367.93 mGy.cm FINDINGS: A right internal jugular [id number] is in place. Note is made of multiple segmental and subsegmental pulmonary within the left lower lobe which correspond to the finding on prior abdominal CT. Subsegmental pulmonary embolus within the right lower lobe is noted. There is no central pulmonary embolus. The heart is mildly enlarged. There is moderate coronary artery calcification. Trace left pleural effusion is noted. Note is made of moderate left lower lobe opacity. There is mild lingular opacity. Central airways are patent. There is an indeterminate 1.3 cm nodular opacity within the right upper lobe on image 184. This is associated with a bronchus. No enlarged axillary, mediastinal or hilar lymph nodes are present. Several indeterminate hepatic lesions are better depicted on the abdominal CT which was performed earlier today. IMPRESSION: 1. Multiple left lower lobe segmental and subsegmental pulmonary emboli which correspond to the finding on abdominal CT. Therefore, left lower lobe opacity may reflect a pulmonary infarct. Pneumonia could appear similar. 2. Indeterminate 1.3 cm hypodense nodular opacity within the right upper lobe. Follow-up chest CT in 3 months is recommended. ACT 112: Negative or not required by law. Electronically signed by: Juan Alberto Alfaro M.D. 12/23/2020 3:10 PM ECG Data Indication: + weakness Rate (beats per minute): 74 Rhythm: + normal sinus ECG Intervals/blocks: + Normal QRS, + Normal IL and + Normal QT-c ECG ST segments: + Normal ST segments MDM Narrative 1130: The patient was evaluated in room B10. A complete history and physical exam was performed Cardiac monitoring: An order was placed for continuous cardiac monitoring. The monitor shows a rate of 70 with sinus rhythm 1430: Vital signs stable. Labs show white blood cell count 4.57. Hemoglobin 9.5. Platelet count 94. Troponin procalcitonin negative. Influenza and Covid negative. CT of the head shows no acute intracranial hemorrhage and does show a previous craniotomy with residual tumor that the patient does know about. CT of the abdomen labs are within normal limits shows no transition point to suggest a bowel obstruction. There is a moderate amount of stool in the colon and rectum. Appendix is normal. Incidental finding on CT of the abdomen which does show possible filling defect in the left lower lobe of the pulmonary arteries. Will conduct CTA of the chest. is at bedside now and states that the patient has been having painful bowel movements and she would like that to be addressed. 1534: Vital signs stable. CTA of the chest does show multiple left lower lobe segmental and subsegmental pulmonary emboli and there is a left lower lobe opacity which may represent a pulmonary infarct. Patient will be started on heparin and admitted to the [facility] hospitalist team. Impression & Plan Embolism, pulmonary with infarction Discharge Plan Visit Data Chief Complaint: Hypotension Stated Complaint: LOW BLOOD PRESSURE/DIZZY/HAS CANCER ED Provider: Angel Mahoney Discharge Problem: Embolism, pulmonary with infarction Patient Disposition: Admitted As Inpatient Forms Stand Alone Forms: My [facility] Prescriptions Prescriptions: No Action atorvastatin 20 mg tablet 20 mg PO QPM RF: 0 sulfamethoxazole-trimethoprim 400-80 mg tablet 1 tab PO 3XWK RF: 0 levetiracetam 500 mg tablet 500 mg PO BID RF: 0 acyclovir 800 mg tablet 800 mg PO BID RF: 0 lorazepam 0.5 mg tablet 0.5 mg PO Q4H PRN (Reason: Nausea) RF: 0 baclofen 10 mg tablet 10 mg PO DIRECTED PRN (Reason: Hiccups) RF: 0 diphenhydramine HCl 25 mg Tablet 25 mg PO HS RF: 0 ondansetron 4 mg tablet,disintegrating 4 mg PO DIRECTED PRN (Reason: Nausea) RF: 0 oxycodone 5 mg tablet 5 mg PO Q6H PRN (Reason: PAIN-MODERATE/SEVERE) RF: 0 cyclobenzaprine 5 mg tablet 5 mg PO DIRECTED PRN (Reason: Muscle Spasm) RF: 0 sennosides [senna] 8.6 mg Tablet 8.6 mg PO DIRECTED PRN (Reason: Constipation) RF: 0 prochlorperazine maleate 10 mg Tablet 10 mg PO DIRECTED PRN (Reason: Nausea) RF: 0 polyethylene glycol 3350 17 gram/dose Powder 17 g PO DAILY PRN (Reason: Constipation) RF: 0 Mucinex DM 30-600 mg Tablet Extended Release 12 Hr 2 tab PO Q12H RF: 0 melatonin 10 mg Tablet 10 mg PO HS RF: 0 sucralfate 1 gram tablet 1 g PO QID RF: 0 dexamethasone 1 mg tablet 1 mg PO QAM RF: 0 pantoprazole 40 mg tablet,delayed release (DR/EC) 40 mg PO BID RF: 0 Xpovio 60mg twice week (120 mg/week) Tablet 60 mg PO 2XWK RF: 0 trazodone 50 mg tablet 50 mg PO HS RF: 0 Referrals Referrals: Baldemar Chan MD [Primary Care Provider] -
[2020-12-23] MEDS: HEPARIN SODIUM/DEXTROSE 25,000 UNITS/500 ML BAG IV SCH (16:03)
[2020-12-23] MEDS ORDERED: HEPARIN SOD (PORCINE) 1000 UNIT/ML IV ONE (16:15)
[2020-12-23] MEDS ORDERED: [UNRECOGNIZED DRUG - OTHER] PO SCH (16:45)
--- NOTE | 2020-12-23 17:11 | History & Physical Report ---
Date of Service December 23, 2020 Assessment & Plan (1) Embolism, pulmonary with infarction: (2) Hypotension: Patient with history of known malignancy with incidentally noted segmental and subsegmental PE with probable infarction in the LLL. Hypotension has improved in the ED and patient is no longer dizzy. Admit to Med/Surg tele for continued monitoring Heparin was started in the ED. Discussed patient with Dr. Pabon. Will contact Pulmonary and possibly NeuroSurg to see next best steps with history of brain tumor/mets. Uncertain which anticoag will be best & safest continued therapy. Will continue Heparin for now. Continue close cardiac monitoring. Monitor BP NSS 100 ml/hr x 2 more bags Encourage PO intake Recheck CBC, BMP tomorrow AM COVID negative. Hypotension may be secondary to new outpatient chemotherapy medication- Selinexor. Patient planned to continue twice weekly fluids outpatient to help maintain BP. Continue IV fluids for now Check Venous Doppler B/L LE (3) Low back pain: (4) Constipation: Patient with rectal and lower abdominal pain/pressure possibly secondary to constipation vs bladder spasm vs mets Continue daily scheduled Miralax. Start Colace 100 mg twice daily Glycerine suppositories daily PRN CT Abd/pelvis showed no signs of bowel obstruction Opioids could be contributory though patient notes he doesn't take them often outpatient. Questionable if mets could be contributory factor to constipation & urinary retention. He has had increased low back pain. 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 Will continue to monitor. CT Head was stable. Next dose of Selinexor due . Continue tapering course of dexamethasone per Heme/Onc outpatient. Patient to receive 1 mg tomorrow and then 0.5 mg x 4 more days. (8) Urinary retention: Possibly secondary to severe constipation UA unrevealing. Consider Waterman catheter while inpatient- leaving this decision up to the patient (9) DVT prophylaxis: As noted above, will need further discussion on which anticoag is safest in this patient. Currently on Heparin. History of Present Illness Chief Complaint: Abdominal pain, Pulmonary Embolism Primary Care Provider: Baldemar Chan MD Patient is a 60 yo male, goes by 'Kip' with a complicated PMHx recently due to diagnosis of diffuse large B-cell lymphoma and brain tumor. The patient presented to the ED at the recommendation of the [facility] provider for concern of orthostatic hypotension and dizziness. The patient has history of hypotension for months now, and per his , he typically runs in the 90-100 systolic range. Over the past few days, his BP at home has been down to 77/56 at the lowest and running mainly in the 80s and 90s systolic. Patient has not been lightheaded with these BPs until today when he felt dizzy which prompted further eval. The patient has a good appetite and is drinking about 80-100 oz of water per day. He has had chronic constipation over the past few months as well. For the past couple of days, he is complaining of rectal pressure and lower abdominal cramping/pain. He notes that his BMs have been large/bulky in caliber and are extremely hard to move. He has been using Miralax at home and Sennakot as needed. He took Sennakot last night and had an improved BM this morning. His abdominal/rectal pressure improved slightly after moving his bowels. He has been following with Dr. Beverly for outpatient Oncology[facility]ematology from [facility]. He was recently started on Selinexor for cancer treatment. He has received 2 doses of this which is 3 tablets on and Saturdays. He took his dose yesterday. It does seem that the hypotension may correlate with the start of this therapy. Heme/Onc also started the patient on twice weekly fluids (1 L given on 12/20 outpatient) as well for hypotension. The patient notes that he has also been feeling like he has fullness in his bladder. He feels like he is having some urinary retention. Sometimes, he is able to empty his bladder what he thinks is completely, but other times he is having trouble getting his urine stream starting though he feels the urge. No urinary or fecal incontinence. He has been feeling slightly weak and tired at home over the past week as well. He has no history of blood clots. He had pneumonia once as a teenager but not since then. He has had no SOB, REID, chest pain. He had some mild throat phlegm/congestion last week. He was started on fluticasone nasal spray outpatient which helped those symptoms. No other cold symptoms. COVID testing here was negative. Since presentation, the patient was noted to be anemic with Hgb 9.5. This is around where his baseline has been outpatient. He has fluctuated up and down. He has had on and off thrombocytopenia since his chemotherapy treatments. Platelet count here was 94. Troponin was negative. Renal function and liver function were stable/normal. Procalcitonin negative. CT of the Abd/pelvis showed slightly distended sigmoid colon, moderate stool in colon and rectum, and no sign of bowel obstruction. It did however show probable filling defect in the lung and recommended further eval. CTA Chest showed multiple LLL segmental and subsegmental pulmonary emboli with LLL opacity, possibly pulmonary infarct vs pneumonia. Allergies Allergy/AdvReac Type Severity Reaction Status Date / Time No Known Allergies Allergy Verified 12/23/20 12:20 Home Medications Medication Instructions Recorded Confirmed Type Mucinex DM 2 tab PO Q12H 11/01/20 12/23/20 History acyclovir 800 mg PO BID 11/01/20 12/23/20 History atorvastatin 20 mg PO QPM 11/01/20 12/23/20 History baclofen 10 mg PO DIRECTED PRN 11/01/20 12/23/20 History cyclobenzaprine 5 mg PO DIRECTED PRN 11/01/20 12/23/20 History diphenhydramine HCl 25 mg PO HS 11/01/20 12/23/20 History levetiracetam 500 mg PO BID 11/01/20 12/23/20 History lorazepam 0.5 mg PO Q4H PRN 11/01/20 12/23/20 History melatonin 10 mg PO HS 11/01/20 12/23/20 History ondansetron 4 mg PO DIRECTED PRN 11/01/20 12/23/20 History oxycodone 5 mg PO Q6H PRN 11/01/20 12/23/20 History polyethylene glycol 3350 17 g PO DAILY PRN 11/01/20 12/23/20 History prochlorperazine maleate 10 mg PO DIRECTED PRN 11/01/20 12/23/20 History sennosides [senna] 8.6 mg PO DIRECTED PRN 11/01/20 12/23/20 History sulfamethoxazole-trimethoprim 1 tab PO 3XWK 11/01/20 12/23/20 History dexamethasone 1 mg PO QAM 12/23/20 12/23/20 History pantoprazole 40 mg PO BID 12/23/20 12/23/20 History selinexor [Xpovio] 60 mg PO 2XWK 12/23/20 12/23/20 History sucralfate 1 g PO QID 12/23/20 12/23/20 History trazodone 50 mg PO HS 12/23/20 12/23/20 History Past Med/Surg History Medical History (Updated 12/23/20 @ 18:47 by Vandana Matias PA-C) Brain cancer Brain tumor Central venous catheter in place Chemotherapy induced nausea and vomiting Constipation Diffuse large B-cell lymphoma Dyslipidemia GERD (gastroesophageal reflux disease) Hiatal hernia Leukemia Neutropenic fever Pancytopenia Radial tunnel syndrome of right upper extremity Right elbow pain Sepsis Thrombocytopenia Surgical History (Updated 12/23/20 @ 17:22 by Vandana Matias PA-C) H/O arthroscopy of knee H/O craniotomy Family History (Updated 12/23/20 @ 17:23 by Vandana Matias PA-C) Mother Breast cancer Father Coronary heart disease Dementia Grandfather (Paternal) Alzheimer disease Social History (Updated 12/23/20 @ 17:23 by Vandana Matias PA-C) Smoking Status: Unknown if ever smoked Tobacco Type: Cigarettes Second Hand Exposure: No; Do You Dip or Chew Tobacco: No; Tobacco Cessation Education Requested by Patient: No Hx Alcohol Use: Yes Hx Substance Use: No Preferred Language: Burmese Communication Ability: Effective Quality Control Tech Raw Materials Required: No Beliefs That Will Affect Care: None marital status: Current Living Situation: Spouse Other Information That Helps Us Care for You: No Feels Safe at Home: Yes Safety Concerns: Feels Safe At This Time Assistive Devices: None Review of Systems Review of Systems: All systems reviewed & are unremarkable except as noted in HPI & below Physical Exam Constitutional: well developed and well nourished; no acute distress and not lethargic Eyes: PERRL, conjunctivae normal, anicteric sclerae ENMT: external ear and nose normal, oropharynx normal Neck: trachea midline, no thyromegaly Respiratory: normal respiratory effort, lungs clear to auscultation Right chest wall central catheter in place Cardiovascular: RRR, no murmur, no edema Gastrointestinal (Abdomen): Inspection/Auscultation: abdomen normal to inspection and + hypoactive bowel sounds; abdomen not distended Percussion/Palpation: + abdomen tender (mildly tender lower quadrants) Results & Data Results & Data ([facility]) Vital Signs (Past 12 Hours) Vital Signs Temp Pulse Pulse Resp BP BP Pulse Ox 12/23/20 16:01 77 22 99 12/23/20 16:00 75 22 107/79 99 12/23/20 15:31 73 19 98 12/23/20 15:30 74 20 95/74 L 98 12/23/20 15:01 70 17 98 12/23/20 15:00 66 17 102/75 99 12/23/20 14:31 75 20 98 12/23/20 14:30 83 22 118/80 12/23/20 14:01 66 20 98 12/23/20 14:00 66 19 103/74 99 12/23/20 13:57 68 22 110/73 99 12/23/20 13:56 70 22 12/23/20 13:01 72 19 97 12/23/20 13:00 66 18 95/66 L 98 12/23/20 12:31 64 13 97 12/23/20 12:30 64 14 90/65 L 98 12/23/20 12:01 74 20 98 12/23/20 12:00 76 18 95/64 L 97 12/23/20 11:52 75 20 111/75 98 12/23/20 11:51 74 20 98 12/23/20 11:35 79 21 12/23/20 11:33 81 17 111/75 12/23/20 11:20 36.5 C 89 18 99/71 L 100 Laboratory Results Laboratory Results - last 24 hr 12/23/20 12/23/20 12/23/20 11:47 11:47 11:47 WBC 4.57 L RBC 2.69 L Hgb 9.5 L Hct 26.8 L MCV 99.6 MCH 35.3 H MCHC 35.4 Plt Count 94 L MPV 9.3 Immature Gran % (Auto) 0.2 Neut % (Auto) 69.3 Lymph % (Auto) 26.3 Harris % (Auto) 4.2 Eos % (Auto) 0.0 Baso % (Auto) 0.0 Neut # (Auto) 3.17 Lymph # (Auto) 1.20 Harris # (Auto) 0.19 Eos # (Auto) 0.00 Baso # (Auto) 0.00 Immature Gran # (Auto) 0.01 Absolute Nucleated RBC 0.02 H Nucleated RBC % (auto) 0.3 Platelet Estimate Decreased L PT 10.1 INR 1.0 APTT 26.4 PTT Ratio 1.0 Sodium 135 L Potassium 3.6 Chloride 103 Carbon Dioxide 26 Anion Gap 6.0 BUN 15 Creatinine 0.67 Est Cr Clr Drug Dosing 131.9 Est GFR ( Amer) 122.8 Est GFR (Non-Af Amer) 105.9 BUN/Creatinine Ratio 22.4 H Glucose 117 H Lactate Calcium 8.1 L Magnesium 2.3 Total Bilirubin 0.5 AST 15 ALT 53 Alkaline Phosphatase 60 Troponin I < 0.015 Total Protein 5.6 L Albumin 2.8 L Globulin 2.8 Albumin/Globulin Ratio 1.0 Procalcitonin Urine Color Urine Appearance Urine pH Ur Specific [place] Urine Protein Urine Glucose (UA) Urine Ketones Urine Blood Urine Nitrite Urine Bilirubin Urine Urobilinogen Ur Leukocyte Esterase COVID-19 Eval Order SARS-CoV-2 (PCR) Influenza Type A (PCR) Influenza Type B (PCR) RSV (RT-PCR) 12/23/20 12/23/20 12/23/20 11:47 11:56 11:56 WBC RBC Hgb Hct MCV MCH MCHC Plt Count MPV Immature Gran % (Auto) Neut % (Auto) Lymph % (Auto) Harris % (Auto) Eos % (Auto) Baso % (Auto) Neut # (Auto) Lymph # (Auto) Harris # (Auto) Eos # (Auto) Baso # (Auto) Immature Gran # (Auto) Absolute Nucleated RBC Nucleated RBC % (auto) Platelet Estimate PT INR APTT PTT Ratio Sodium Potassium Chloride Carbon Dioxide Anion Gap BUN Creatinine Est Cr Clr Drug Dosing Est GFR ( Amer) Est GFR (Non-Af Amer) BUN/Creatinine Ratio Glucose Lactate Calcium Magnesium Total Bilirubin AST ALT Alkaline Phosphatase Troponin I Total Protein Albumin Globulin Albumin/Globulin Ratio Procalcitonin < 0.05 Urine Color Urine Appearance Urine pH Ur Specific [place] Urine Protein Urine Glucose (UA) Urine Ketones Urine Blood Urine Nitrite Urine Bilirubin Urine Urobilinogen Ur Leukocyte Esterase COVID-19 Eval Order CovFluRsv at [facility] SARS-CoV-2 (PCR) NEGATIVE Influenza Type A (PCR) Negative Influenza Type B (PCR) Negative RSV (RT-PCR) Negative 12/23/20 12/23/20 11:57 14:33 WBC RBC Hgb Hct MCV MCH MCHC Plt Count MPV Immature Gran % (Auto) Neut % (Auto) Lymph % (Auto) Harris % (Auto) Eos % (Auto) Baso % (Auto) Neut # (Auto) Lymph # (Auto) Harris # (Auto) Eos # (Auto) Baso # (Auto) Immature Gran # (Auto) Absolute Nucleated RBC Nucleated RBC % (auto) Platelet Estimate PT INR APTT PTT Ratio Sodium Potassium Chloride Carbon Dioxide Anion Gap BUN Creatinine Est Cr Clr Drug Dosing Est GFR ( Amer) Est GFR (Non-Af Amer) BUN/Creatinine Ratio Glucose Lactate 1.3 Calcium Magnesium Total Bilirubin AST ALT Alkaline Phosphatase Troponin I Total Protein Albumin Globulin Albumin/Globulin Ratio Procalcitonin Urine Color Yellow Urine Appearance Clear Urine pH 7.5 Ur Specific [place] 1.024 Urine Protein Negative Urine Glucose (UA) Negative Urine Ketones Negative Urine Blood Negative Urine Nitrite Negative Urine Bilirubin Negative Urine Urobilinogen Negative Ur Leukocyte Esterase Negative COVID-19 Eval Order SARS-CoV-2 (PCR) Influenza Type A (PCR) Influenza Type B (PCR) RSV (RT-PCR) Diagnostic Findings CT ABD/PELVIS: IMPRESSION: 1. Redundant and mildly distended sigmoid colon without transition point to suggest a bowel obstruction. Moderate amount stool within the colon and rectum. Apparent wall thickening of the right colon is likely due to underdistention although a nonspecific colitis could appear similar. Normal appendix. 2. Apparent filling defects within left lower lobe pulmonary arteries. Artifact is favored however pulmonary emboli cannot be excluded. CTA of the chest is recommended. 3. Trace left pleural effusion. Lingular and subpleural left lower lobe opacities which could reflect an infectious process or atelectasis. 4. Multiple indeterminate hepatic lesions. Comparison with prior imaging studies, if available, is recommended. In the absence of prior studies, nonemergent liver protocol MRI is recommended. 5. Indeterminate 2 cm nodule anterior to the bladder. Comparison to prior imaging studies, if available, is recommended. CTA CHEST: IMPRESSION: 1. Multiple left lower lobe segmental and subsegmental pulmonary emboli which correspond to the finding on abdominal CT. Therefore, left lower lobe opacity may reflect a pulmonary infarct. Pneumonia could appear similar. 2. Indeterminate 1.3 cm hypodense nodular opacity within the right upper lobe. Follow-up chest CT in 3 months is recommended. HEAD CT: IMPRESSION: 1. No acute intracranial hemorrhage. 2. Status post post frontal craniotomy. Mild decrease in size of the previously described 2.9 x 1.6 cm hyperdense focus within the right frontal operative bed with adjacent edema. This favors residual tumor. Additional extra axial lesions shown on prior exam have also improved. 3. Mild increase in ventricular size is prior exam. However, ventricles remain normal in size. Short-term imaging follow-up is recommended. Code Status & VTE Plan VTE Prophylaxis Plan VTE Prophylaxis will be ordered: Yes Supervising Physician Co-Signing Physician Notes I have seen and examined the patient and have discussed the case with the provider above. I agree with the assessment and plan as stated. 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 He denies any difficulty walking from his baseline which is some sligh R leg weakness since his brain surgery last fall. He denies any dysuria, fevers chills, or other concerns for UTI. He reports lower back pain in the past couple of weeks. He has known metastatic disease in L5 per recent PET scan reports. Physical reveals a normotensive man after IVF with a normal heart rate who is in no acute distress and who is oxygenating well on room air. His neuro exam is unremarkable including 2/4 DTR at the knee, no sensation or gross focal strength deficit, and neg Romberg and heel to laughlin. He is not symptomatically lightheaded with standing. A CT chest with contrast revealed a PE and he was started on heparin therapy. He also has a blood clot in the left leg. The case was discussed with is oncologist, [place] [facility] [place] is less concerned that he may experience intracranial bleeding given the nature of the brain tumor despite acknowledging the clear risk. This was explained to the patient and his , and transfer to a center that provides neurosurgical services as a backup was offered but declined for the moment. A waterman catheter was ordered as well as an MRI L spine out of concern for epidural spinal cord compression from developing metastatic disease. Emprically, under the direction of Dr. Beverly, he was loaded with Decadron 20mg and started on decadron 4mg PO q6h. Transfer will be considered if he does have spinal cord compression, and this plan was signed out to the pricing intern. Cont heparin at this time. Per Dr. Beverly, he would like to avoid coumadin as a senior care anticoagulant. It would be helpful to have him consulted prior to outlining his care plan with Dr. Beverly prior to discharge. DO Cm
--- NOTE | 2020-12-23 17:28 | Ultrasound Report ---
BILATERAL LOWER EXTREMITY VENOUS DOPPLER CLINICAL HISTORY: Pulmonary emboli. COMPARISON STUDY: No previous studies for comparison. TECHNIQUE: Sonography of the deep venous system of the bilateral lower extremities was performed. Co mpression and augmentation were evaluated. FINDINGS: The right common femoral, superficial femoral and popliteal veins were compressible. Augme ntation was normal. Note is made of deep venous thrombus within the left popliteal vein. IMPRESSION: 1. Deep venous thrombus within the left popliteal vein. 2. No evidence of deep venous thrombus within the right lower extremity. ACT 112: Negative or not required by law. Electronically signed by: Juan Alberto Alfaro M.D. 12/23/2020 5:26 PM
[2020-12-23] MEDS ORDERED: ACETAMINOPHEN 325 MG TAB PO PRN (18:25)
[2020-12-23] MEDS ORDERED: GLYCERIN ADULT 12 SUPP/BOX SUPP PR PRN (18:25)
[2020-12-23] MEDS: SODIUM CHLORIDE 0.9% 1000ML 1,000 ML IV SCH (18:39)
[2020-12-23] MEDS ORDERED: dexAMETHasone 20 MG in SYRINGE 0 ML IV STA (19:09)
[2020-12-23] MEDS: POLYETHYLENE (MIRALAX) 17 GM PACK PO SCH (19:22)
[2020-12-23] MEDS ORDERED: dexAMETHasone 20 MG in DEXTROSE 5% 25 ML IV ONE (20:15)
[2020-12-23] MEDS: ONDANSETRON INJ 2 MG/ML 2 ML VIAL IV PRN (20:29)
[2020-12-23] MEDS ORDERED: GADOBUTROL 30ML VIAL IV ONE (21:40)
[2020-12-23] MEDS: ATORVASTATIN 20 MG TAB PO SCH (22:17)
[2020-12-23] MEDS: levETIRAcetam 500 MG TAB PO SCH (22:17)
[2020-12-23] MEDS: traZODone HCL 50 MG TAB PO SCH (22:17)
[2020-12-23] MEDS: diphenhydrAMINE Capsule 25 MG CAP PO SCH (22:17)
[2020-12-23] MEDS: ACYCLOVIR 400 MG TAB PO SCH (22:18)
[2020-12-23] MEDS: DOCUSATE SODIUM 100 MG CAP PO SCH (22:18)
[2020-12-23] MEDS: MELATONIN 3 MG TAB PO SCH (22:18)
[2020-12-23] MEDS: PANTOprazole 40 MG TAB PO SCH (22:18)
[2020-12-23 23:01] LABS: Partial Thromboplastin Ratio 4.7
[2020-12-23 23:21] LABS: Partial Thromboplastin Time 123.7 Seconds (21.0-31.0)
[2020-12-24] MEDS: dexAMETHasone 4 MG TAB PO SCH ×3 (00:19→12:53)
[2020-12-24] MEDS ORDERED: HEPARIN 100 UNIT/ML 5ML FLUSH FLUSH PRN (01:03)
[2020-12-24] MEDS ORDERED: diphenhydrAMINE Capsule 25 MG CAP PO ONE (04:33)
[2020-12-24] MEDS: SODIUM CHLORIDE 0.9% 1000ML 1,000 ML IV SCH (04:47)
[2020-12-24 05:37] LABS: Hematocrit (blood only) 22.9 % (42-52); Hemoglobin 8.1 g/dL (14.0-18.0); Mean Corpuscular Hemoglobin 34.9 pg (25-34); Mean Corpuscular Hgb Conc 35.4 g/dL (32-36); Mean Corpuscular Volume 98.7 fL (80-100); Red Blood Count 2.32 M/uL (4.7-6.1); White Blood Count 2.78 K/uL (4.8-10.8)
[2020-12-24 05:58] LABS: Partial Thromboplastin Ratio 2.1; Prothrombin Time 10.6 Seconds (9.0-12.0)
[2020-12-24 05:59] LABS: Mean Platelet Volume 9.1 fL (7.4-10.4); Partial Thromboplastin Time 54.4 Seconds (21.0-31.0); Platelet Count 82 K/uL (130-400)
[2020-12-24 06:00] LABS: Lymphocytes # (auto) 0.79 K/uL (1.2-3.4); Lymphocytes % (auto) 28.4 %; Monocytes # (auto) 0.12 K/uL (0.11-0.59); Monocytes % (auto) 4.3 %; Neutrophils # (auto) 1.87 K/uL (1.4-6.5); Neutrophils % (auto) 67.3 %; RBC Morphology Unremarkable
[2020-12-24 06:06] LABS: BUN Creatinine Ratio 22.7 (10-20); Calcium 7.5 mg/dl (8.5-10.1); Est GFR (African American) 124.3; Est GFR (Non-African American) 107.2
--- NOTE | 2020-12-24 06:56 | Electrocardiogram Report ---
Test Reason : Blood Pressure : / mmHG Vent. Rate : 076 BPM Atrial Rate : 076 BPM P-R Int : 160 ms QRS Dur : 096 ms QT Int : 380 ms P-R-T Axes : 048 008 -10 degrees QTc Int : 427 ms Poor data quality, interpretation may be adversely affected Normal sinus rhythm T wave abnormality, consider inferior ischemia Abnormal ECG When compared with ECG of 01-NOV-2020 20:31, T wave inversion more evident in Inferior leads Confirmed by Dominic Diehl ([id number]) on 12/24/2020 6:56:06 AM Referred By: Confirmed By:Dominic Diehl
[2020-12-24] MEDS: PANTOprazole 40 MG TAB PO SCH ×2 (08:00→21:03)
[2020-12-24] MEDS: DOCUSATE SODIUM 100 MG CAP PO SCH ×2 (08:00→21:03)
[2020-12-24] MEDS: FLUTICASONE PROPIONATE NA SPR 16 GM BTL NAE SCH (08:00)
[2020-12-24] MEDS: SULFA/TRIMETH 400/80MG TAB PO SCH (08:00)
[2020-12-24] MEDS: levETIRAcetam 500 MG TAB PO SCH ×2 (08:01→21:03)
[2020-12-24] MEDS: ACYCLOVIR 400 MG TAB PO SCH ×2 (08:01→21:03)
[2020-12-24] MEDS: POLYETHYLENE (MIRALAX) 17 GM PACK PO SCH (08:01)
[2020-12-24] MEDS ORDERED: dexAMETHasone 1 MG TAB PO SCH (09:00)
--- NOTE | 2020-12-24 09:23 | Magnetic Resonance Report ---
LUMBAR SPINE MRI WITH AND WITHOUT CONTRAST HISTORY: ?epidural mets. Evaluate for cord compression. Low back pain, AUR, rectal spasm, +DBCL TECHNIQUE: Multiplanar multisequence MRI of the lumbar spine was performed both before and after the intravenous administration of contrast. COMPARISON: Abdomen and pelvis CT 12/23/2020. FINDINGS: For the purpose of the report the L5-S1 disc space will be located on axial image 27 of 30. Mild levoscoliosis. No fracture or subluxation. Mild disc space narrowing at L3-L4. Mild facet degene rative changes throughout the lumbar spine. There are 2 left retroperitoneal soft tissue nodules waylon uring 3.0 and 0.8 cm. This is concerning for metastatic disease. No suspicious osseous lesions identi fied. The conus terminates at the T12-L1 disc space level. No epidural masses or fluid collections. N o evidence for compression of the cauda equina. Subtle nodularity at the distal thecal sac at the S1 level best seen on image 8 of the sagittal T1 postcontrast sequences. This could be due to the normal vessels. Small areas of intrathecal drop metastases cannot be excluded. Follow-up recommended to ens ure stability of this finding. L1-L2: No significant central canal or neural foraminal narrowing. L2-L3: Small broad-based posterior disc bulge without significant central canal or neural foraminal n arrowing. L3-L4: Broad-based posterior disc bulge with ligamentum and facet hypertrophy resulting in mild centr al canal and mild to moderate right-sided neural foraminal narrowing. L4-L5: Small broad-based posterior disc bulge with a left foraminal annular tear without significant central canal narrowing. There is mild bilateral neural foraminal narrowing. L5-S1: No disc herniations. No significant central canal or neural foraminal narrowing. There is a sm all focal central annular tear. IMPRESSION: 1. Redemonstration of the left retroperitoneal soft tissue masses likely representing metastatic dise ase. 2. No epidural or osseous masses identified. 3. Small broad-based posterior disc bulge at L3-L4 resulting in mild central canal narrowing. No bree re central canal narrowing. 4. Subtle nodularity at the distal thecal sac at the S1. This could be due to the normal vessels. Sma ll areas of intrathecal drop metastases cannot be excluded. Follow-up recommended to ensure stability of this finding. ACT 112: Negative or not required by law. Electronically signed by: Parker Root M.D. 12/24/2020 9:21 AM
[2020-12-24] MEDS: ONDANSETRON INJ 2 MG/ML 2 ML VIAL IV PRN (12:12)
[2020-12-24] MEDS: HEPARIN SODIUM/DEXTROSE 25,000 UNITS/500 ML BAG IV SCH (14:16)
--- NOTE | 2020-12-24 15:01 | Hospitalist Progress Note ---
Date of Service December 24, 2020 Assessment & Plan (1) Embolism, pulmonary with infarction: (2) Hypotension: Patient is 60-year-old male with past medical history of diffuse large B- cell lymphoma, brain tumor currently undergoing chemotherapy presented to the ED with concern for orthostatic hypotension, dizziness and weakness. Patient was found to have pulmonary embolism/left popliteal DVT. He also presented with acute on chronic back pain with constipation and urinary retention. CT: Multiple left lower lobe segmental and subsegmental pulmonary emboli which correspond to the finding on abdominal CT. Deep venous thrombus within the left popliteal vein. Overall patient is doing okay now. Patient is hemodynamically stable. He is on room air. Reports he is feeling better. Weakness since dizziness is improved. Initially patient and the family requested to be transferred over to [facility]. I did discuss with [facility] transfer center but due to no good indication and availability [facility] refused to accept. However, if there is acute indication, they will consider it. Continue with heparin infusion. Discontinue maintenance IV fluids. Continue monitor daily CBC/BMP. B19 has been ruled out. Hypotension may be secondary to new outpatient chemotherapy medication- Selinexor. Patient planned to continue twice weekly fluids outpatient to help maintain BP. Continue IV fluids for now. (3) Low back pain: (4) Constipation: Patient with rectal and lower abdominal pain/pressure possibly secondary to constipation vs bladder spasm vs mets. She did have 1 small bowel movement this morning. Ports spasms are improved. Continue daily scheduled Miralax. Start Colace 100 mg twice daily Glycerine suppositories daily PRN. CT Abd/pelvis showed no signs of bowel obstruction MRI of the spine was also obtained which did not reveal any new concerning mets. We will discontinue high-dose steroid given MRI spinal mets have been ruled out. Continue his MATERIAL LOADER dose of dexamethasone 0.5 mg daily for 4 more days. 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 Will continue to monitor. CT Head was stable. Next dose of Selinexor due . Continue tapering course of dexamethasone per Heme/Onc outpatient. Patient to receive 1 mg tomorrow and then 0.5 mg x 4 more days. (8) Urinary retention: Possibly secondary to severe constipation. Acuna catheter in place. Once patient have had successful bowel movement, will do a voiding trial. (9) DVT prophylaxis: As noted above, will need further discussion on which anticoag is safest in this patient. Currently on Heparin. Admission and Anticipated Discharge Date Admission Date: December 23, 2020 Subjective Patient reports he is feeling much better now. Weakness is improved. Denies any chest pain, shortness of breath, palpitations or any new weakness. Reports dizziness is also improved. Did have 1 small bowel movement. Was nauseous earlier. Denies any visual blurriness or any focal weakness. Review of Systems Review of Systems: All systems reviewed & are unremarkable except as noted in HPI & below Physical Exam Physical Exam: General: A&Ox3 HENT: NCAT, MMM, EOMI Eyes: PERRLA Neck: Supple, normal range of motion CVS: normal rate and rhythm Resp: b/l decreased breath sound Abdomen: Soft, nondistended and nontender Extremities: No c/c/e Neuro: face symmetric, no gross focal deficits Skin: warm and dry, no rashes/lesions/errythema MSK: normal ROM, no joint swelling/erythema Results & Data Results & Data ([facility]) Vital Signs (Past 12 Hours) Vital Signs Temp Pulse Pulse Resp BP Pulse Ox 12/24/20 11:40 36.7 C 79 16 106/75 98 12/24/20 09:00 59 L 12/24/20 07:25 36.6 C 59 L 16 103/71 96 12/24/20 04:13 36.7 C 72 20 101/67 97
--- NOTE | 2020-12-24 15:06 | Communication Note ---
Date of Service: December 24, 2020 Was told by RN that patient is having headache. He went to evaluate the patient. Patient reported 2-3 out of 10 frontal headache denies any visual blurriness. No new focal weakness. Absence of any slurred speech. Continue to monitor.
--- NOTE | 2020-12-24 16:17 | Pulmonary Consultation ---
Date of Consultation December 24, 2020 Assessment & Plan (1) Embolism, pulmonary with infarction: 60-year-old male with a past medical history of diffuse large B- cell lymphoma, chemotherapy-induced thrombocytopenia and metastatic brain disease who presented to the hospital and was discovered to have a left lower lobe pulmonary embolism with pulmonary infarct. Recommend switching to a direct oral anticoagulant. I would recommend avoiding IVC filter placement at this time unless it is deemed that systemic anticoagulation is contraindicated given the brain mets and the pancytopenia. He will likely need lifelong anticoagulation given his hypercoagulable state from malignancy. The pulmonary infarct seen is minimal and at this time no specific intervention is required. He does have a right upper lobe indeterminate lesion with possible cavitation. The etiology of this is unclear. Agree with a follow-up CT chest in 3 months. No bronchoscopic intervention required at this time. He does not appear infected and I think septic emboli seem less likely at this time. Pulmonary will sign off at this time. Please call with questions. Thank you for consultation. (2) Thrombocytopenia: (3) Abnormal CT scan, chest: History of Present Illness Attending Physician: Efren Gonzalez MD History of Present Illness 60-year-old male with a past medical history of diffuse large B-cell lymphoma and brain tumor who presented from an urgent care due to orthostatic hypotension and dizziness. Hypertension is a chronic issue for him that he has had for a few months. Patient notes that he has been having increasing weakness over the last several weeks. He denies any respiratory symptoms aside from mild nonproductive cough that is chronic. He denies any chest pains, fevers, chills or night sweats. He does report occasional low-grade fevers after receiving treatment for the diffuse large B-cell lymphoma. He denies any history of rece nt travel. He has 2 cats at home. No history of pulmonary emboli or DVT. He notes that he has been experiencing more lethargy as of late. Chest CTA on 12/23/2020 demonstrated multiple left lower lobe segmental and subsegmental pulmonary emboli and left lower lobe opacity concerning for possible pulmonary infarct. Indeterminate 1.3 cm hypodense nodular opacity within the right upper lobe was seen and a CT chest in 3 months was recommended by radiology. Lower extremity venous Dopplers demonstrated DVT within the left popliteal vein. Lumbar MRI demonstrated left retroperitoneal soft tissue mass along with other findings concerning for intrathecal drop metastases. He has chronic pancytopenia with a hemoglobin of 8.1 most recently and a platelet count of 82,000. He is currently on a heparin drip for the pulmonary embolism and DVT. Renal function is stable with a creatinine of 0.65. Troponin was negative. Allergies Allergy/AdvReac Type Severity Reaction Status Date / Time No Known Allergies Allergy Verified 12/23/20 12:20 Home Medications Medication Instructions Recorded Confirmed Type Mucinex DM 2 tab PO Q12H 11/01/20 12/23/20 History acyclovir 800 mg PO BID 11/01/20 12/23/20 History atorvastatin 20 mg PO QPM 11/01/20 12/23/20 History baclofen 10 mg PO DIRECTED PRN 11/01/20 12/23/20 History cyclobenzaprine 5 mg PO DIRECTED PRN 11/01/20 12/23/20 History diphenhydramine HCl 25 mg PO HS 11/01/20 12/23/20 History levetiracetam 500 mg PO BID 11/01/20 12/23/20 History lorazepam 0.5 mg PO Q4H PRN 11/01/20 12/23/20 History melatonin 10 mg PO HS 11/01/20 12/23/20 History ondansetron 4 mg PO DIRECTED PRN 11/01/20 12/23/20 History oxycodone 5 mg PO Q6H PRN 11/01/20 12/23/20 History polyethylene glycol 3350 17 g PO DAILY PRN 11/01/20 12/23/20 History prochlorperazine maleate 10 mg PO DIRECTED PRN 11/01/20 12/23/20 History sennosides [senna] 8.6 mg PO DIRECTED PRN 11/01/20 12/23/20 History sulfamethoxazole-trimethoprim 1 tab PO 3XWK 11/01/20 12/23/20 History dexamethasone 1 mg PO QAM 12/23/20 12/23/20 History pantoprazole 40 mg PO BID 12/23/20 12/23/20 History selinexor [Xpovio] 60 mg PO 2XWK 12/23/20 12/23/20 History sucralfate 1 g PO QID 12/23/20 12/23/20 History trazodone 50 mg PO HS 12/23/20 12/23/20 History Patient History Medical History Brain cancer Brain tumor Central venous catheter in place Chemotherapy induced nausea and vomiting Constipation Diffuse large B-cell lymphoma Dyslipidemia GERD (gastroesophageal reflux disease) Hiatal hernia Leukemia Neutropenic fever Pancytopenia Radial tunnel syndrome of right upper extremity Right elbow pain Sepsis Thrombocytopenia Surgical History H/O arthroscopy of knee H/O craniotomy Family History Mother Breast cancer Father Coronary heart disease Dementia Grandfather (Paternal) Alzheimer disease Social History Smoking Status: Unknown if ever smoked Tobacco Type: Cigarettes Second Hand Exposure: No; Do You Dip or Chew Tobacco: No; Tobacco Cessation Education Requested by Patient: No Hx Alcohol Use: Yes Hx Substance Use: No Preferred Language: Sinhala Communication Ability: Effective Fitness Sales Consultant Required: No Beliefs That Will Affect Care: None marital status: Current Living Situation: Spouse Other Information That Helps Us Care for You: No Feels Safe at Home: Yes Safety Concerns: Feels Safe At This Time Assistive Devices: None Review of Systems Review of Systems: All systems reviewed & are unremarkable except as noted in HPI & below Physical Exam Constitutional: Frail-appearing male in no apparent distress. Laying in bed. Eyes: PERRL, conjunctivae normal, anicteric sclerae ENMT: external ear and nose normal, oropharynx normal Neck: normal visual inspection Respiratory: normal respiratory effort, lungs clear to auscultation Cardiovascular: RRR, no murmur, no edema Gastrointestinal (Abdomen): normal bowel sounds, soft, nontender, no hepatosplenomegaly Musculoskeletal: no cyanosis or clubbing, extremities motor strength 5/5 Neurologic: PERRL, EOMI, accommodation nl, no face palsy, no dysarthria Psychiatric: A+Ox3, euthymic affect Results & Data Results & Data ([facility]) Vital Signs (Past 12 Hours) Vital Signs Temp Pulse Pulse Resp BP Pulse Ox 12/24/20 15:51 98.2 F 68 16 111/73 96 04/12/21 11:40 98.1 F 79 16 106/75 98 12/24/20 09:00 59 L 12/24/20 07:25 97.9 F 59 L 16 103/71 96 12/24/20 04:13 98.1 F 72 20 101/67 97 I reviewed the vital signs, labs and imaging PG Care Time/CCT Total # of Minutes Spent Total Time Spent with Patient: Total time spent is greater than 50% in coordination of care (as documented) at patient's floor/unit and/or counseling patient: Coding Level of Care Code 09840 Inpt Consult Level 4 Diagnoses Embolism, pulmonary with infarction I26.[address] scan, chest R93.89
[2020-12-24] MEDS: SUCRALFATE 1 GM/10 ML UDC PO SCH (16:49)
[2020-12-24] MEDS: diphenhydrAMINE Capsule 25 MG CAP PO SCH (21:03)
[2020-12-24] MEDS: ATORVASTATIN 20 MG TAB PO SCH (21:03)
[2020-12-24] MEDS: traZODone HCL 50 MG TAB PO SCH (21:03)
[2020-12-24] MEDS: MELATONIN 3 MG TAB PO SCH (21:03)
[2020-12-24] MEDS: PROCHLORPERAZINE 5 MG in SYRINGE 4 ML IV PRN (21:04)
[2020-12-25 07:45] LABS: Hematocrit (blood only) 22.6 % (42-52); Hemoglobin 8.1 g/dL (14.0-18.0); Mean Corpuscular Hemoglobin 35.4 pg (25-34); Mean Corpuscular Hgb Conc 35.8 g/dL (32-36); Mean Corpuscular Volume 98.7 fL (80-100); Nucleated RBC # (auto) 0.03 K/uL (0-0); RDW Standard Deviation 80.7 fL (36.4-46.3); Red Blood Count 2.29 M/uL (4.7-6.1)
[2020-12-25 07:46] LABS: Mean Platelet Volume 9.7 fL (7.4-10.4); Platelet Count 79 K/uL (130-400)
[2020-12-25] MEDS: SUCRALFATE 1 GM/10 ML UDC PO SCH ×3 (07:54→17:26)
[2020-12-25] MEDS: ONDANSETRON INJ 2 MG/ML 2 ML VIAL IV PRN ×2 (07:54→17:27)
[2020-12-25] MEDS: PANTOprazole 40 MG TAB PO SCH ×2 (07:55→20:41)
[2020-12-25 08:11] LABS: Partial Thromboplastin Ratio 2.3
[2020-12-25 08:25] LABS: BUN Creatinine Ratio 20.8 (10-20); Calcium 8.2 mg/dl (8.5-10.1); Creatinine Clr Calc Pharmacy 142.5 ml/min; Est GFR (African American) 126.7; Est GFR (Non-African American) 109.3; Potassium 3.6 mmol/L (3.5-5.1)
[2020-12-25 08:37] LABS: Anisocytosis Present; Lymphocytes # (auto) 0.72 K/uL (1.2-3.4); Monocytes # (auto) 0.22 K/uL (0.11-0.59); Monocytes % (auto) 7.3 %; Neutrophils # (auto) 2.06 K/uL (1.4-6.5); Neutrophils % (auto) 68.7 %; Partial Thromboplastin Time 59.8 Seconds (21.0-31.0)
[2020-12-25] MEDS: ACYCLOVIR 400 MG TAB PO SCH ×2 (08:47→20:39)
[2020-12-25] MEDS: dexAMETHasone 1 MG TAB PO SCH (08:47)
[2020-12-25] MEDS: DOCUSATE SODIUM 100 MG CAP PO SCH ×2 (08:47→20:39)
[2020-12-25] MEDS: FLUTICASONE PROPIONATE NA SPR 16 GM BTL NAE SCH (08:48)
[2020-12-25] MEDS: POLYETHYLENE (MIRALAX) 17 GM PACK PO SCH (08:48)
[2020-12-25] MEDS: levETIRAcetam 500 MG TAB PO SCH ×2 (08:48→20:40)
[2020-12-25] MEDS: HEPARIN SODIUM/DEXTROSE 25,000 UNITS/500 ML BAG IV SCH (09:02)
[2020-12-25] MEDS: PROCHLORPERAZINE 5 MG in SYRINGE 4 ML IV PRN ×2 (11:49→20:35)
[2020-12-25] MEDS ORDERED: ENOXAPARIN 1 MG/KG SQ SCH (13:45)
--- NOTE | 2020-12-25 13:50 | Hospitalist Progress Note ---
Date of Service December 25, 2020 Assessment & Plan (1) Embolism, pulmonary with infarction: (2) Hypotension: Patient is 60-year-old male with past medical history of diffuse large B- cell lymphoma, brain tumor currently undergoing chemotherapy presented to the ED with concern for orthostatic hypotension, dizziness and weakness. Patient was found to have pulmonary embolism/left popliteal DVT. He also presented with acute on chronic back pain with constipation and urinary retention. CT: Multiple left lower lobe segmental and subsegmental pulmonary emboli which correspond to the finding on abdominal CT. Deep venous thrombus within the left popliteal vein. Patient denies any complaints today. Is feeling much better. Initially patient and the family requested to be transferred over to [facility]. I did discuss with [facility] transfer center but due to no good indication and availability [facility] refused to accept. However, if there is acute indication, they will consider it. I did speak with his oncologist Dr. Beverly; continue heparin today. Patient to therapeutic dose of Lovenox. IV fluids have been discontinued. Pressures in the 100s. is concerned about him having persistent hypotension at home. Will obtain orthostatic pressures. Work with PT/OT today. Hypotension may be secondary to new outpatient chemotherapy medication- Selinexor. Patient planned to continue twice weekly fluids outpatient to help maintain BP. (3) Low back pain: (4) Constipation: Patient with rectal and lower abdominal pain/pressure possibly secondary to constipation vs bladder spasm vs mets. Did have multiple bowel movements. Continue daily scheduled Miralax. Start Colace 100 mg twice daily Glycerine suppositories daily PRN. CT Abd/pelvis showed no signs of bowel obstruction MRI of the spine was also obtained which did not reveal any new concerning mets. Continue his NUT PICKER dose of dexamethasone 0.5 mg daily for 3 more days. 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 Will continue to monitor. CT Head was stable. Next dose of Selinexor due . Continue tapering course of dexamethasone 0.5 mg x 3 more days. (8) Urinary retention: Possibly secondary to severe constipation. Will remove Acuna catheter today and do a voiding trial. (9) DVT prophylaxis: As noted above, will need further discussion on which anticoag is safest in this patient. Currently on Heparin. Admission and Anticipated Discharge Date Admission Date: December 23, 2020 Subjective Patient is doing okay this morning. Reports he is doing much better. Hemodynamically he is doing fine. Pressures in the 100s. Has any chest pain, shortness of breath, palpitations, dizziness or any headache today. Denies any focal weakness, slurred speech, neck pain or visual disturbances. Did have multiple bowel movements. Rest of the review of system is negative. Review of Systems Review of Systems: All systems reviewed & are unremarkable except as noted in HPI & below Physical Exam Physical Exam: General: A&Ox3 HENT: NCAT, MMM, EOMI Eyes: PERRLA Neck: Supple, normal range of motion CVS: normal rate and rhythm Resp: b/l decreased breath sound Abdomen: Soft, nondistended and nontender Extremities: No c/c/e Neuro: face symmetric, no gross focal deficits Skin: warm and dry, no rashes/lesions/errythema MSK: normal ROM, no joint swelling/erythema Results & Data Results & Data ([facility]) Vital Signs (Past 12 Hours) Vital Signs Temp Pulse Pulse Resp BP Pulse Ox 12/25/20 11:24 36.8 C 68 16 94 12/25/20 07:56 36.7 C 68 18 103/70 98 12/25/20 07:28 61 12/25/20 02:57 36.8 C 65 16 117/75 99
[2020-12-25] MEDS: ENOXAPARIN 80 MG/0.8 ML SYR SQ SCH ×2 (15:54→23:11)
[2020-12-25] MEDS ORDERED: HEPARIN 100 UNIT/ML 5ML FLUSH ONE (17:37)
[2020-12-25] MEDS: diphenhydrAMINE Capsule 25 MG CAP PO SCH (20:39)
[2020-12-25] MEDS: MELATONIN 3 MG TAB PO SCH (20:39)
[2020-12-25] MEDS: traZODone HCL 50 MG TAB PO SCH (20:40)
[2020-12-25] MEDS: ATORVASTATIN 20 MG TAB PO SCH (20:41)
[2020-12-26] MEDS ORDERED: HEPARIN 100 UNIT/ML 5ML FLUSH FLUSH PRN (05:01)
[2020-12-26] MEDS: SUCRALFATE 1 GM/10 ML UDC PO SCH ×2 (07:40→11:49)
[2020-12-26] MEDS: ONDANSETRON INJ 2 MG/ML 2 ML VIAL IV PRN (07:40)
[2020-12-26] MEDS: dexAMETHasone 1 MG TAB PO SCH (07:41)
[2020-12-26] MEDS: PANTOprazole 40 MG TAB PO SCH (07:43)
[2020-12-26 07:48] LABS: Partial Thromboplastin Ratio 1.2; Partial Thromboplastin Time 31.1 Seconds (21.0-31.0)
[2020-12-26] MEDS: ACYCLOVIR 400 MG TAB PO SCH (08:58)
[2020-12-26] MEDS: DOCUSATE SODIUM 100 MG CAP PO SCH (08:58)
[2020-12-26] MEDS: ENOXAPARIN 80 MG/0.8 ML SYR SQ SCH (08:59)
[2020-12-26] MEDS: SULFA/TRIMETH 400/80MG TAB PO SCH (08:59)
[2020-12-26] MEDS: levETIRAcetam 500 MG TAB PO SCH (08:59)
[2020-12-26] MEDS: FLUTICASONE PROPIONATE NA SPR 16 GM BTL NAE SCH (09:00)
[2020-12-26] MEDS: POLYETHYLENE (MIRALAX) 17 GM PACK PO SCH (09:01)
[2020-12-26 11:37] LABS: Hematocrit (blood only) 25.1 % (42-52); Hemoglobin 8.9 g/dL (14.0-18.0); Mean Corpuscular Volume 98.8 fL (80-100); Nucleated RBC # (auto) 0.02 K/uL (0-0); Nucleated RBC % (auto) 0.9 %; Red Blood Count 2.54 M/uL (4.7-6.1); White Blood Count 2.57 K/uL (4.8-10.8)
[2020-12-26 11:39] LABS: Mean Corpuscular Hgb Conc 35.5 g/dL (32-36); Mean Platelet Volume 9.5 fL (7.4-10.4); Platelet Count 87 K/uL (130-400)
[2020-12-26] MEDS: PROCHLORPERAZINE 5 MG in SYRINGE 4 ML IV PRN ×2 (12:11→12:14)
--- NOTE | 2020-12-26 12:22 | Communication Note ---
Date of Service: December 26, 2020 AM labs reviewed : Hb improved to 8.9 with improvement of platelet count pt reports feeling a lot better , no pain or discomfort , ambulated independent ly stable to be discharged home Lovenox script sent to pt's pharmacy , co -pay 46$ /month updated over phone regarding discharge plan , in agreement , all questions answered Maira Guan MD
--- NOTE | 2020-12-26 13:42 | Hospitalist Progress Note ---
Date of Service December 26, 2020 Assessment & Plan (1) Embolism, pulmonary with infarction: (2) Hypotension: Patient is 60-year-old male with past medical history of diffuse large B- cell lymphoma, brain tumor currently undergoing chemotherapy presented to the ED with concern for orthostatic hypotension, dizziness and weakness. Patient was found to have pulmonary embolism/left popliteal DVT. He also presented with acute on chronic back pain with constipation and urinary retention. CT: Multiple left lower lobe segmental and subsegmental pulmonary emboli which correspond to the finding on abdominal CT. Deep venous thrombus within the left popliteal vein. Patient started with a therapeutic Lovenox dose has not had any bleeding complication Scripts for Lovenox sent to patient's pharmacy, co-pay $46/month Updated patient's , agreeable with the cost Patient will be continued to follow-up with his hematology oncology Dr. Beverly at [facility] Orthostatic hypotension: patient denies of any symptoms of dizzy spell or lightheadedness when standing up Hypotension may be secondary to new outpatient chemotherapy medication- Selinexor. P Patient is scheduled in clinic for twice weekly fluids outpatient to help maintain BP. (3) Low back pain: (4) Constipation: Symptom has resolved Had bowel movement today, Patient with rectal and lower abdominal pain/pressure possibly secondary to constipation vs bladder spasm vs mets. Did have multiple bowel movements. 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 Lab today: Shows improvement platelet count from yesterday's lab Gets twice weekly lab check: On Thursday/ Patient will continue to follow-up with his outpatient hematology oncology (8) Urinary retention: Symptom has resolved, Acuna discontinued, Has been voiding spontaneously (9) DVT prophylaxis: on lovenox stable to be discharged home today Admission and Anticipated Discharge Date Admission Date: December 23, 2020 Subjective Follow-up visit for diffuse B-cell lymphoma,/acute pulmonary embolism, left lower extremity DVT: Patient states he feels 100% better, no abdominal pain or discomfort, walked around the room and hallway, No fever or chills, had bowel movement Ready to be discharged home today Review of Systems Review of Systems: All systems reviewed & are unremarkable except as noted in Subjective Physical Exam Physical Exam: Physical exam: General: No acute distress, alert awake oriented x3 HEENT: PERRLA, EOMI, Heart: Regular S1-S2, no carotid bruit, no JVD, no lower extremity edema Lungs: Clear to auscultate, no wheeze or rales Abdomen: Soft nontender, no organomegaly Extremity: No cyanosis, no deformity, normal strength 5 out of 5 with upper and lower Neuro: No focal neurological deficit normal speech, normal visual field, Motor strength : normal both upper and lower extremity, sensation intact Psych: Alert awake oriented x3, normal affect Results & Data Results & Data ([facility]) Vital Signs (Past 12 Hours) Vital Signs Temp Pulse Resp BP Pulse Ox 12/26/20 11:48 37.4 C 84 18 103/70 97 12/26/20 08:49 37.4 C 85 18 102/74 96 12/26/20 04:00 37.0 C 79 18 108/64 95
--- NOTE | 2020-12-26 14:20 | Discharge Summary ---
Date of Service December 26, 2020 Admission HPI Per Admitting Provider Patient is a 60 yo male, goes by 'Kip' with a complicated PMHx recently due to diagnosis of diffuse large B-cell lymphoma and brain tumor. The patient presented to the ED at the recommendation of the [facility] provider for concern of orthostatic hypotension and dizziness. The patient has history of hypotension for months now, and per his , he typically runs in the 90-100 systolic range. Over the past few days, his BP at home has been down to 77/56 at the lowest and running mainly in the 80s and 90s systolic. Patient has not been lightheaded with these BPs until today when he felt dizzy which prompted further eval. The patient has a good appetite and is drinking about 80-100 oz of water per day. He has had chronic constipation over the past few months as well. For the past couple of days, he is complaining of rectal pressure and lower abdominal cramping/pain. He notes that his BMs have been large/bulky in caliber and are extremely hard to move. He has been using Miralax at home and Sennakot as needed. He took Sennakot last night and had an improved BM this morning. His abdominal/rectal pressure improved slightly after moving his bowels. He has been following with Dr. Beverly for outpatient Oncology/Hematology from [facility]. He was recently started on Selinexor for cancer treatment. He has received 2 doses of this which is 3 tablets on and Saturdays. He took his dose yesterday. It does seem that the hypotension may correlate with the start of this therapy. Heme/Onc also started the patient on twice weekly fluids (1 L given on 12/20 outpatient) as well for hypotension. The patient notes that he has also been feeling like he has fullness in his bladder. He feels like he is having some urinary retention. Sometimes, he is able to empty his bladder what he thinks is completely, but other times he is having trouble getting his urine stream starting though he feels the urge. No urinary or fecal incontinence. He has been feeling slightly weak and tired at home over the past week as well. He has no history of blood clots. He had pneumonia once as a teenager but not since then. He has had no SOB, REID, chest pain. He had some mild throat phlegm/congestion last week. He was started on fluticasone nasal spray outpatient which helped those symptoms. No other cold symptoms. COVID testing here was negative. Since presentation, the patient was noted to be anemic with Hgb 9.5. This is around where his baseline has been outpatient. He has fluctuated up and down. He has had on and off thrombocytopenia since his chemotherapy treatments. Platelet count here was 94. Troponin was negative. Renal function and liver function were stable/normal. Procalcitonin negative. CT of the Abd/pelvis showed slightly distended sigmoid colon, moderate stool in colon and rectum, and no sign of bowel obstruction. It did however show probable filling defect in the lung and recommended further eval. CTA Chest showed multiple LLL segmental and subsegmental pulmonary emboli with LLL opacity, possibly pulmonary infarct vs pneumonia. Principal Diagnosis DIFFUSE LARGE B CELL LYMPHOMA METASTATIC BRAIN TUMOR CHEMO INDUCED PANCYTOPENIA ORTHOSTATIC HYPOTENSION -POSSIBLE CHEMO INDUCED PULMONARY EMBOLISM WITH PULMONARY INFRACTION Discharge Exam Physical exam: General: No acute distress, alert awake oriented x3 HEENT: PERRLA, EOMI, Heart: Regular S1-S2, no carotid bruit, no JVD, no lower extremity edema Lungs: Clear to auscultate, no wheeze or rales Abdomen: Soft nontender, no organomegaly Extremity: No cyanosis, no deformity, normal strength 5 out of 5 with upper and lower Neuro: No focal neurological deficit normal speech, normal visual field, Motor strength : normal both upper and lower extremity, sensation intact Psych: Alert awake oriented x3, normal affect Discharge Data Allergies Allergy/AdvReac Type Severity Reaction Status Date / Time No Known Allergies Allergy Verified 12/23/20 12:20 Consultations 12/23/20 15:16 ED Decision to Admit Stat 12/23/20 18:39 Consult Pulmonology Routine 12/24/20 15:06 Consult Orthopedic Surgery Routine Ordered Studies 12/23/20 11:37 CT abd pelvis IV con only Stat CT head/brain wo con Stat 12/23/20 14:23 CT angio chest PE protocol Stat 12/23/20 16:32 US venous doppler LE BI Stat 12/23/20 18:34 MR lumbar spine wo/w con Urgent Hospital Course (1) Embolism, pulmonary with infarction: (2) Hypotension: Patient is 60-year-old male with past medical history of diffuse large B- cell lymphoma, brain tumor currently undergoing chemotherapy presented to the ED with concern for orthostatic hypotension, dizziness and weakness. Patient was found to have pulmonary embolism/left popliteal DVT. He also presented with acute on chronic back pain with constipation and urinary retention. CT: Multiple left lower lobe segmental and subsegmental pulmonary emboli which correspond to the finding on abdominal CT. Deep venous thrombus within the left popliteal vein. Patient started with a therapeutic Lovenox dose has not had any bleeding complication Scripts for Lovenox sent to patient's pharmacy, co-pay $46/month Updated patient's , agreeable with the cost Patient will be continued to follow-up with his hematology oncology Dr. Beverly at [facility] Orthostatic hypotension: patient denies of any symptoms of dizzy spell or lightheadedness when standing up Hypotension may be secondary to new outpatient chemotherapy medication- Selinexor. P Patient is scheduled in clinic for twice weekly fluids outpatient to help maintain BP. (3) Low back pain: (4) Constipation: Symptom has resolved Had bowel movement today, Patient with rectal and lower abdominal pain/pressure possibly secondary to constipation vs bladder spasm vs mets. Did have multiple bowel movements. 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 Lab today: Shows improvement platelet count from yesterday's lab Gets twice weekly lab check: On Thursday/ Patient will continue to follow-up with his outpatient hematology oncology (8) Urinary retention: Symptom has resolved, Acuna discontinued, Has been voiding spontaneously (9) DVT prophylaxis: on lovenox stable to be discharged home today Total Time Total Time Spent Total Time Spent (In Minutes): Approximately 40 minutes Total Time Includes: Examination of the Patient, Discharge Planning and Medication Reconciliation Discharge Plan Discharge Items Patient Disposition: Home - Self-Care Reason For Visit: PE ABD PAIN Discharge Diagnosis: DIFFUSE LARGE B CELL LYMPHOMA METASTATIC BRAIN TUMOR CHEMO INDUCED PANCYTOPENIA ORTHOSTATIC HYPOTENSION -POSSIBLE CHEMO INDUCED PULMONARY EMBOLISM WITH PULMONARY INFRACTION Activity: Resume your previous activity Non-emergency contact: Primary Care Provider Call non-emergency contact if: you have any medication questions Follow-up/Referrals: Baldemar Chan MD [Primary Care Provider] - (Date & Time 01/03/2021 10:40 AM Provider Baldemar Chan MD Department Family Practice [facility] ) Diet: Regular Addtl Attending Provider Instructions: Please take all medications as instructed on discharge list below. It is recommended that you follow-up with your primary care physician within 1-2 weeks of hospital discharge to ensure you are still doing well. Please call if you have any questions or problems. You can reach a [facility] hospitalist on duty at [facility] 24 hours a day by calling [phone] CONTINUE LAB WORK SCHEDULED BY YOUR ONCOLOGIST YOUR ARE DISCHARGED ON BLOOD THINNER : LOVENOX 80 MG SUBCUTANEOUS INJECTION TWICE DAILY -TREATMENT FOR BLOOD CLOT IN YOUR LUNGS BLEEDING FROM SMALL CUTS OR WOUNDS WILL TAKE LONGER TIME TO STOP-PLEASE TAKE PRECAUTION AROUND SHARP OBJECTS , VERY IMPORTANT TO TAKE PRECAUTION TO PREVENT FALL -CAN CAUSE SERIOUS BLEEDING PLEASE NOTIFY YOUR FAMILY PHYSICIAN OR ONCOLOGIST WITH EVIDENCE OF BLEEDING COMPLICATIONS : MOST COMMONLY - DARK TARRY STOOL ( SIGN OF BLEEDING IN STOMACH ) , EXCESSIVE NOSE BLEED Addtl Insurance Operations Rep Provider Instructions: CT chest with contrast : Indeterminate 1.3 cm hypodense nodular opacity within the right upper lobe noted Follow-up chest CT in 3 months is recommended. Pending Studies at Discharge: No Stand-Alone Forms: My [facility], Smoking Cessation Medications and DC Order Prescriptions: New enoxaparin [Lovenox] 80 mg/0.8 mL Syringe 80 mg subcut Q12 30 Days Qty: 60 RF: 3 Continued atorvastatin 20 mg tablet 20 mg PO QPM RF: 0 sulfamethoxazole-trimethoprim 400-80 mg tablet 1 tab PO 3XWK RF: 0 levetiracetam 500 mg tablet 500 mg PO BID RF: 0 acyclovir 800 mg tablet 800 mg PO BID RF: 0 lorazepam 0.5 mg tablet 0.5 mg PO Q4H PRN (Reason: Nausea) RF: 0 baclofen 10 mg tablet 10 mg PO DIRECTED PRN (Reason: Hiccups) RF: 0 diphenhydramine HCl 25 mg Tablet 25 mg PO HS RF: 0 ondansetron 4 mg tablet,disintegrating 4 mg PO DIRECTED PRN (Reason: Nausea) RF: 0 oxycodone 5 mg tablet 5 mg PO Q6H PRN (Reason: PAIN-MODERATE/SEVERE) RF: 0 cyclobenzaprine 5 mg tablet 5 mg PO DIRECTED PRN (Reason: Muscle Spasm) RF: 0 sennosides [senna] 8.6 mg Tablet 8.6 mg PO DIRECTED PRN (Reason: Constipation) RF: 0 prochlorperazine maleate 10 mg Tablet 10 mg PO DIRECTED PRN (Reason: Nausea) RF: 0 polyethylene glycol 3350 17 gram/dose Powder 17 g PO DAILY PRN (Reason: Constipation) RF: 0 Mucinex DM 30-600 mg Tablet Extended Release 12 Hr 2 tab PO Q12H RF: 0 melatonin 10 mg Tablet 10 mg PO HS RF: 0 sucralfate 1 gram tablet 1 g PO QID RF: 0 dexamethasone 1 mg tablet 1 mg PO QAM RF: 0 pantoprazole 40 mg tablet,delayed release (DR/EC) 40 mg PO BID RF: 0 Xpovio 60mg twice week (120 mg/week) Tablet 60 mg PO 2XWK RF: 0 trazodone 50 mg tablet 50 mg PO HS RF: 0 Discharge Orders: Discharge Order (Routine); Ordered 12/26/20 Ordered By: Maira Guan Admission Data Admit Date/Time: 12/23/20 16:29 Attending Provider: Maira Guan Admit Provider: Shahnaz Pabon Primary Care Provider: Baldemar Chan Other Providers: Shahnaz Pabon ; Steven Hardy Gregory M ; Efren Gonzalez Other Interventions: Discharge Summary Assessment (RN) Last Done: 12/26/20 14:10
--- NOTE | 2021-01-05 10:18 | Orthopedic Consultation ---
Date of Consultation January 05, 2021 Assessment & Plan (1) Low back pain: The patient was discharged from the hospital prior to my ability to evaluate and perform a formal consultation. Present on Admission?: Yes History of Present Illness Reason for Consultation: Back pain Attending Physician: Maira Guan MD Allergies Allergy/AdvReac Type Severity Reaction Status Date / Time No Known Allergies Allergy Verified 12/23/20 12:20 Home Medications Medication Instructions Recorded Confirmed Type Mucinex DM 2 tab PO Q12H 11/01/20 12/23/20 History acyclovir 800 mg PO BID 11/01/20 12/23/20 History atorvastatin 20 mg PO QPM 11/01/20 12/23/20 History baclofen 10 mg PO DIRECTED PRN 11/01/20 12/23/20 History cyclobenzaprine 5 mg PO DIRECTED PRN 11/01/20 12/23/20 History diphenhydramine HCl 25 mg PO HS 11/01/20 12/23/20 History levetiracetam 500 mg PO BID 11/01/20 12/23/20 History lorazepam 0.5 mg PO Q4H PRN 11/01/20 12/23/20 History melatonin 10 mg PO HS 11/01/20 12/23/20 History ondansetron 4 mg PO DIRECTED PRN 11/01/20 12/23/20 History oxycodone 5 mg PO Q6H PRN 11/01/20 12/23/20 History polyethylene glycol 3350 17 g PO DAILY PRN 11/01/20 12/23/20 History prochlorperazine maleate 10 mg PO DIRECTED PRN 11/01/20 12/23/20 History sennosides [senna] 8.6 mg PO DIRECTED PRN 11/01/20 12/23/20 History sulfamethoxazole-trimethoprim 1 tab PO 3XWK 11/01/20 12/23/20 History Xpovio 60 mg PO 2XWK 12/23/20 12/23/20 History dexamethasone 1 mg PO QAM 12/23/20 12/23/20 History pantoprazole 40 mg PO BID 12/23/20 12/23/20 History sucralfate 1 g PO QID 12/23/20 12/23/20 History trazodone 50 mg PO HS 12/23/20 12/23/20 History enoxaparin [Lovenox] 80 mg SUBCUT Q12 30 Days #60 syr 12/26/20 Rx Patient History Medical History (Updated 12/24/20 @ 16:17 by Steven Hardy MD) Abnormal CT scan, chest Brain cancer Brain tumor Central venous catheter in place Chemotherapy induced nausea and vomiting Constipation Diffuse large B-cell lymphoma Dyslipidemia GERD (gastroesophageal reflux disease) Hiatal hernia Leukemia Neutropenic fever Pancytopenia Radial tunnel syndrome of right upper extremity Right elbow pain Sepsis Thrombocytopenia Surgical History H/O arthroscopy of knee H/O craniotomy Family History Mother Breast cancer Father Coronary heart disease Dementia Grandfather (Paternal) Alzheimer disease Social History Smoking Status: Unknown if ever smoked Tobacco Type: Cigarettes Second Hand Exposure: No; Hx Alcohol Use: Yes Hx Substance Use: No Preferred Language: Estonian Communication Ability: Effective Director Of Brand Marketing Required: No Beliefs That Will Affect Care: None marital status: Current Living Situation: Spouse Feels Safe at Home: Yes Assistive Devices: None
== END 2020-12-26 15:24 | disposition home or self-care (01) | DRG 175 ==
LOC: ED 11:16 → 2W 16:29 → SUATTDRO 16:29 → 2W 17:48